=== PATIENT | male | born 1990 | race Caucasian/White ===

== ENCOUNTER → 2025-01-23 07:32 | Outpatient (REF) | payer BC, SELFPAY ==
[2025-01-23 08:42] LABS: % Basophils 0.8 % (0-2); % Eosinophils 3.5 % (0-6); % Immature Granulocytes 0.2 % (0-0.5); % Lymphocytes 17.5 % (20.5-51.1); % Monocytes 7.8 % (1.7-9.3); % Neutrophils 70.2 % (42.2-75.2); Absolute Basophils 0.1 10^3/uL (0-0.2); Absolute Eosinophils 0.3 10^3/uL (0-0.7); Absolute Lymphocytes 1.7 10^3/uL (1.2-3.4); Absolute Monocytes 0.8 10^3/uL (0.1-0.6); Absolute Neutrophils 6.8 10^3/uL (1.4-6.5); Hematocrit 42.3 % (39.0-52.0); Hemoglobin 13.8 g/dL (13.0-18.0); Mean Corp Hgb Conc. 32.6 g/dL (33.0-37.0); Mean Corpuscular Hgb 28.5 pg (27.0-31.0); Mean Corpuscular Volume 87.2 fL (80.0-94.0); Mean Platelet Volume 10.3 fL (7.4-10.4); Nucleated Red Blood Cells % 0 % (-); Platelet Count 331 10^3/uL (130-400); Red Blood Cell Count 4.85 10^6/uL (4.70-6.10); Red Cell Dist. Width 12.8 % (11.5-14.5); White Blood Cell Count 9.7 10^3/uL (4.8-10.8)
[2025-01-23 11:29] LABS: ALT (SGPT) 61 U/L (0-50); AST (SGOT) 43 U/L (17-59); Albumin 4.6 g/dl (3.5-5.0); Alkaline Phosphatase 66 U/L (38-126); Blood Urea Nitrogen 13 mg/dl (9-20); Calcium 9.9 mg/dl (8.4-10.2); Carbon Dioxide 31 mmol/L (22-30); Chloride 102 mmol/L (98-107); Glucose 101 mg/dl (70-99); Potassium 4.8 mmol/L (3.5-5.1); Sodium 141 mmol/L (135-145); Total Bilirubin 0.7 mg/dl (0.2-1.3); Total Protein 8.1 g/dl (6.3-8.2); eGFR > 60.00
== END ==
LOC: HWLAB 07:32
PROVIDERS: ATTENDING PHYSICIAN Surgery; FAMILY PHYSICIAN Internal Medicine
DX: R10.10 Upper abdominal pain, unspecified (principal)
CPT/HCPCS: 36415; 80053; 85025; 86140

== ENCOUNTER 2025-02-06 06:29 | Day surgery (SDC) | payer BC, SELFPAY | END 2025-02-06 11:23 | disposition home or self-care (01) | LOC: GI 06:29 | PROVIDERS: ATTENDING PHYSICIAN Surgery | DX: K62.5 Hemorrhage of anus and rectum (principal); K64.5 Perianal venous thrombosis; D49.0 Neoplasm of unspecified behavior of digestive system; D12.5 Benign neoplasm of sigmoid colon | CPT/HCPCS: 45380; 45381; 88305 ==

== ENCOUNTER 2025-02-21 15:50 | Inpatient (IN) | payer BC, SELFPAY ==
[2025-02-21] VITALS (15 sets, daily range): BP systolic 94–139; BP diastolic 56–80; BMI 21.8
--- NOTE | 2025-02-21 14:48 | HPS.HSE ---
Family Physician
-
Family Physician: Daniel Durbin MD
Chief Complaint
-
Sigmoid mass
History of Present Illness
34-year-old male found to have a fungating, polypoid and ulcerated nonobstructing mass of the sigmoid colon on a colonoscopy performed on 02/06/[address] Sánchez. The procedure was performed for rectal bleeding and a change in bowel habits.
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 He was referred for an EMR and Dr. Sanchez called me following the procedure 10 minutes ago. While taking the lesion out there was
a full-thickness perforation that was closed an overstitch suturing system.
While in the PACU he is awake and alert. He is having some abdominal pain, as expected. He is afebrile and his vital signs are normal. His abdomen is tender throughout. His WBC is normal.
Medical History
Past Medical History
Past Medical History: Reports None
Past Surgical History: Reports None
Social History
Tobacco: Non-smoker
Alcohol: None
Personal:
Living: With Family
Employment: Employed
Family History
Family History: Cancer (2 maternal uncles with colon cancer) and Other (Father with Crohn's disease and a sister with IBD; his mother had polyps)
Allergies / Home Medications
Allergies reflects when Allergies were last updated in [facility].
None
Home Medications with original date entered in [facility]
None
Allergy/Medication List:
NKDA
Review of Systems
-
History Source: Patient
A 12 point ROS was completed and negative except as noted: Yes
Physical Exam
Vital Signs
Vital Signs
Temp Pulse Resp BP Pulse Ox
98.7 F 68 16 129/75 98
02/21/25 11:08 02/21/25 11:08 02/21/25 11:08 02/21/25 11:08 02/21/25 11:08
Physical Exam
General: Well Developed
HEENT: Anicteric
GI: Soft, Non Tender and Non Distended
Skin: Warm
Neuro: Awake and Alert
Impression/Plan
-
IMPRESSION: Colonic perforation during EMR for a neoplastic polyp of the distal sigmoid colon. Currently clinically stable. He is having pain and tenderness as expected.
PLAN: The plan is for admission and observation. Will keep n.p.o. and on antibiotics. If his condition worsens will consider imaging versus surgery. Surgery at this time might require a temporary ostomy. I do not feel imaging at this time will
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 I spoke to the patient and his at length, all questions answered and they are in agreement with the plan.
[2025-02-21 15:52] LABS: Hematocrit 37.4 % (39.0-52.0); Hemoglobin 12.6 g/dL (13.0-18.0); Mean Corp Hgb Conc. 33.7 g/dL (33.0-37.0); Mean Corpuscular Volume 85.0 fL (80.0-94.0); Nucleated Red Blood Cells % 0 % (-); Platelet Count 270 10^3/uL (130-400); Red Cell Dist. Width 12.2 % (11.5-14.5)
[2025-02-21] MEDS: DILAUDID 0.5 MG IV ×2 (15:54→19:59)
[2025-02-21] MEDS: ZOSYN 50 IV ×2 (15:56→21:55)
[2025-02-21 16:01] LABS: Blood Urea Nitrogen 13 mg/dl (9-20); Calcium 9.1 mg/dl (8.4-10.2); Carbon Dioxide 27 mmol/L (22-30); Chloride 99 mmol/L (98-107); Estimated Creatinine Clearance > 125 ml/min; Glucose 84 mg/dl (70-99); Potassium 3.9 mmol/L (3.5-5.1); Sodium 133 mmol/L (135-145); eGFR > 60.00
[2025-02-21 16:06] LABS: INR 1.05; PT 14.2 Sec (11.4-14.6)
[2025-02-21 16:07] LABS: APTT 32.4 Sec (23.4-35.0)
[2025-02-21] MEDS: NSS 1000 IV (17:19)
[2025-02-21] MEDS: TYLENOL 500 MG PO (17:49)
--- NOTE | 2025-02-21 18:09 | PTCARENOTE ---
Received from PACU - IMU moniotrs placed NSR 87 BP 123/65 99% on RAIR , afebrile. Color sallow/pasty. IVF NSS at 100ml/hr infusing. C/o low abdominal pain 12/09 last received Dilaudid in PACU. Pt agreeable to PO Tylenol -administered w/ sip of
water- will monitor. DTv. Teds/ scds intact. at bedside.
[2025-02-22] VITALS (12 sets, daily range): BP systolic 110–139; BP diastolic 70–88
[2025-02-22] MEDS: DILAUDID 0.5 MG IV ×9 (00:12→19:51)
[2025-02-22] MEDS: NSS 1000 IV ×3 (02:25→21:23)
[2025-02-22] MEDS: ZOSYN 50 IV ×4 (04:26→21:12)
[2025-02-22 04:39] LABS: Hematocrit 37.7 % (39.0-52.0); Hemoglobin 12.7 g/dL (13.0-18.0); Mean Corp Hgb Conc. 33.7 g/dL (33.0-37.0); Mean Corpuscular Volume 84.2 fL (80.0-94.0); Nucleated Red Blood Cells % 0 % (-); Platelet Count 260 10^3/uL (130-400); Red Cell Dist. Width 12.3 % (11.5-14.5)
[2025-02-22 05:02] LABS: Blood Urea Nitrogen 12 mg/dl (9-20); Calcium 8.9 mg/dl (8.4-10.2); Carbon Dioxide 24 mmol/L (22-30); Chloride 101 mmol/L (98-107); Estimated Creatinine Clearance > 125 ml/min; Glucose 97 mg/dl (70-99); Potassium 4.1 mmol/L (3.5-5.1); Sodium 134 mmol/L (135-145); eGFR > 60.00
[2025-02-22 06:15] LABS: CEA 1180 ng/ml
--- NOTE | 2025-02-22 07:16 | W.PN.CRS1 ---
Today's Communication / Plan
-
CTA/P
ET nursing consult
Assessment/Plan
-
S/p colonoscopic perforation due to EMR of sigmoid polyp--repaired endoluminally.
1. still with pain, subjectively less but receiving Dilaudid. A bit tachycardic and WBC up to 12.2. CTA/P with IV and water soluble rectal contrast ordered to rule out leak/extravasation. Will have ET nursing erna him for potential stoma if
surgery required. Patient understands.
2. continue npo/IVFs/antibiotics.
Subjective Data
Subjective Data
Date of Service: February 22, 2025
Admits to L sided abdominal pain. Somewhat better than yesterday but getting q 2 hr Dilaudid.
Objective Data
-
Vital Signs
Temp Pulse Resp BP Pulse Ox
98.3 F 107 42 135/77 97
02/22/25 03:20 02/22/25 02:00 02/22/25 02:00 02/22/25 02:00 02/22/25 02:00
Intake & Output
02/21/25 02/22/25 02/23/25
06:59 06:59 06:59
Intake Total 200 / 200
Output Total 400 / 400
Balance -200 / -200
Intake:
IV fluids (Total) 200 / 200
NSS 200 / 200
Output:
Urine, Voided 400 / 400
Lab Results
02/22/25 04:28
02/22/25 04:28
Physical Exam
-
General: No Acute Distress
Chest: Clear
Cardiovascular: Sinus Tachycardia
Abdomen: Non Distended and Tender (moderate L>R)
Extremities: No Calf Tenderness
--- NOTE | 2025-02-22 10:40 | WOUNDNOTE ---
[facility] RN note: Stoma marked patient both sides of abdomen per Dr. Jc's request. Stoma marked patient in lying and seated bed position as patient too uncomfortable to sit on the side of the bed. Stoma marked patient in lower quadrants over the
rectus muscle avoiding any skin crease. LLQ stoma erna 3.5cm distal to the umbilical line and 5.6cm to L of midline. RLQ stoma erna 3.7cm distal to the umbilical line and 4.4cm to R of midline. Patient instructed surgeon makes the final decision
with stoma placement. Patient's present. Skin on patient's sacrum and heels intact. Instructed patient pressure injury prevention measures.
--- NOTE | 2025-02-22 11:34 | W.PN.UPDATE ---
Update Note
Progress Note Update
Patient was seen. I performed colonoscopy yesterday with EMR of large rectosigmoid polyp/mass, which was complicated by perforation. Attempts were made for endoscopic repair with over stitch suture placements. Good defect apposition was felt to
be achieved. Patient was subsequently admitted and colorectal surgery was called. Overnight his pain worsened, became tachycardic early this morning with evolving leukocytosis. He is quite tender in his abdomen. He had a CT of abdomen today
which unfortunately revealed multiple likely metastatic lesions in his liver. I spoke with colorectal surgeon (Dr. Ivey) and the patient is planned for diverting ostomy. Spoke with pathologist who confirmed the suspicion that this is invasive
carcinoma. Will contact oncology.
--- NOTE | 2025-02-22 11:42 | PTCARENOTE ---
Received this am, anxious w pressured speech/ fast non stop talking. Am meds given plus xanax and Roxycodone for pain/ anxiety. Requested her to refrain until Insulin /D50 orders reviewed with provider/ Yared Harrison from pharmacy d/t
elevated blood sugars- times skew ed d/t stat blood glucose draws- pt difficult access- some multi draws have been required. Per Dr. Galvez repeat K after 10am- again difficulty in obtain blood sample. Staff assisting.
Remains anxious wants to constantly eat, asked her to refrain for few hours- will monitor compliancy as she was stating she cant do that.
--- NOTE | 2025-02-22 14:03 | W.PN.UPDATE ---
Addendum entered and electronically signed by Roger Ivey MD 02/22/25 15:23:
Correction: I discussed with Drs. Abreu and Madi, not 'Nury petty'.
Original Note:
Update Note
Progress Note Update
Earlier in the day the patient underwent CT abdomen and pelvis with IV and rectal contrast. I did review images with radiology staff including Drs. Vieira and Kalia petty. There was evidence for small bowel ileus. There was moderate free air. The
rectal contrast decision in the rectosigmoid lumen. There was a question of a small area of extraluminal contrast versus calcified lymph nodes near the rectum. Given that finding I was considering surgical intervention of the point in time. I
soon received word from radiology that they recommended a stat noncontrast pelvic CT to better determine whether a leak is occurring. This pelvic CT was interpreted as intraluminal lymph nodes rather than extraluminal contrast. There is no
convincing evidence for extraluminal contrast. As an incidental finding, there was evidence for hepatic metastatic disease which was pretty significant. The patient was made aware of the hepatic disease earlier by Dr. Sanchez. I spoke to the patient
and his family at the bedside after the pelvic CT results were back. He felt that his pain was somewhat better as well. I told him we were going to hold off on surgical intervention at this juncture but we will continue to follow him closely.
[2025-02-22] MEDS: TORADOL 15 MG IV ×2 (15:22→21:12)
--- NOTE | 2025-02-22 15:47 | CM ---
Met with patient at bedside
[facility] @ [address] [place]
Address updated with Admissions: [address] [place] [address]
Family Physician: Daniel Durbin MD @ [address] [address]; phone [phone]
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
No DME
NO history of SNF or Home Health utilization
or mother will transport home
Discharge plan to be determined pending hospital course; Case Management will monitor and support needs/service once identified
--- NOTE | 2025-02-22 17:59 | PTCARENOTE ---
Addendum entered by Cassidy Lin RN 02/22/25 18:08:
Remains NPO, mouth care completed by pt. IVF infusing / IV antibiotics as ordered.
Original Note:
CT scans completed today, otherwise has not felt up to moving around. Complaining of 6-8/10 abdominal pain hilda uncomfortable moving around- after [address] Ivey- added IV Toradol- given pain improving- still required IV Dilaudid but
he does see improvement. Affect is calm, supportive family at bedside today. 'Take it one day at a time' with a smile on his face. SR/ST on tele pulse rate 80s-100, BP 120/80 and afebrile. Occasionally RR 30s -short interval. SCDs/ Teds intact.
Can make needs known.
--- NOTE | 2025-02-22 19:20 | PTCARENOTE ---
Pain improving since starting IV Toradol but still waxing and waning now 3-5/10 more when moving around in bed. Voiding adequately.
[2025-02-22] MEDS: DILAUDID 0.25 MG IV (22:49)
[2025-02-23] VITALS (12 sets, daily range): BP systolic 110–140; BP diastolic 63–84; BMI 21.8
[2025-02-23] MEDS: DILAUDID 0.5 MG IV ×6 (00:51→20:21)
--- NOTE | 2025-02-23 02:00 | PTCARENOTE ---
Pt is AAOx3. pleasant and using call light appropriately. c/o moderate to severe abdominal pain throughout. pain meds admin per orders, see MAR. IV fluids infusing via left wrist iv site. assessment as documented. npo order maintained. call light in
reach.
[2025-02-23] MEDS: DILAUDID 0.25 MG IV ×2 (02:56→18:05)
[2025-02-23] MEDS: ZOSYN 50 IV ×4 (04:52→21:51)
[2025-02-23] MEDS: TORADOL 15 MG IV ×4 (04:52→21:50)
[2025-02-23 05:16] LABS: Hematocrit 36.1 % (39.0-52.0); Hemoglobin 12.0 g/dL (13.0-18.0); Mean Corp Hgb Conc. 33.2 g/dL (33.0-37.0); Mean Corpuscular Volume 86.2 fL (80.0-94.0); Nucleated Red Blood Cells % 0 % (-); Platelet Count 255 10^3/uL (130-400); Red Cell Dist. Width 12.7 % (11.5-14.5)
[2025-02-23 05:40] LABS: Blood Urea Nitrogen 11 mg/dl (9-20); Calcium 9.0 mg/dl (8.4-10.2); Carbon Dioxide 21 mmol/L (22-30); Chloride 104 mmol/L (98-107); Estimated Creatinine Clearance > 125 ml/min; Glucose 88 mg/dl (70-99); Potassium 3.9 mmol/L (3.5-5.1); Sodium 134 mmol/L (135-145); eGFR > 60.00
[2025-02-23] MEDS: NSS 1000 IV ×2 (08:41→18:07)
--- NOTE | 2025-02-23 08:41 | W.PN.CRS1 ---
Today's Communication / Plan
-
Sips and chips.
Assessment/Plan
-
S/p colonoscopic perforation due to EMR of sigmoid polyp--repaired endoluminally. CTs yesterday without evidence for contrast extravasation/leak. Evidence for liver metastases.
1. a bit less pain and tenderness. A bit tachycardic and WBC 13.8, Afebrile and normotensive.
2. sips and chips ok. Continue IVFs.
3. holding on surgical option for now. This may change depending on progress. He understands this.
4. continue empiric antibiotics.
Subjective Data
Subjective Data
Date of Service: February 23, 2025
Still pain but less.
Objective Data
-
Vital Signs
Temp Pulse Resp BP Pulse Ox
98.2 F 102 27 123/72 98
02/23/25 03:30 02/23/25 06:00 02/23/25 06:00 02/23/25 06:00 02/23/25 06:00
Intake & Output
02/22/25 02/23/25 02/24/25
06:59 06:59 06:59
Intake Total 200 / 200 1300 / 1300
Output Total 400 / 400 2100 / 2100
Balance -200 / -200 -800 / -800
Intake:
IV fluids (Total) 200 / 200 1200 / 1200
NSS 200 / 200
IV piggybacks 100 / 100
Output:
Urine, Voided 400 / 400 2100 / 2100
Other:
Number of approximated SMALL 1
amounts of urine
Number of approximated MODERATE 2
amounts of urine
Lab Results
02/23/25 05:04
02/23/25 05:04
Physical Exam
-
General: No Acute Distress
Chest: Clear
Cardiovascular: Sinus Tachycardia (borderline)
Abdomen: Distended (mild), Tender (LLQ--less than yesterday), No Guarding and No Rebound
Extremities: No Calf Tenderness
--- NOTE | 2025-02-23 23:29 | PTCARENOTE ---
Report received from octavio RN. using call light appropriately, [id number]. teds and scds in use. communicating pain. n/s @ 80 ml/hr infusing via left wrist iv. assessment as documented. call light in reach.
[2025-02-24] VITALS (7 sets, daily range): BP systolic 118–134; BP diastolic 71–80
[2025-02-24] MEDS: DILAUDID 0.5 MG IV (00:39)
[2025-02-24] MEDS: ZOSYN 50 IV ×4 (03:35→22:05)
[2025-02-24] MEDS: TORADOL 15 MG IV ×4 (03:35→22:04)
[2025-02-24] MEDS: NSS 1000 IV ×2 (03:36→20:52)
[2025-02-24 04:11] LABS: Hematocrit 34.1 % (39.0-52.0); Hemoglobin 11.3 g/dL (13.0-18.0); Mean Corp Hgb Conc. 33.1 g/dL (33.0-37.0); Mean Corpuscular Volume 85.5 fL (80.0-94.0); Nucleated Red Blood Cells % 0 % (-); Platelet Count 261 10^3/uL (130-400); Red Cell Dist. Width 12.6 % (11.5-14.5)
[2025-02-24 04:35] LABS: Blood Urea Nitrogen 8 mg/dl (9-20); Calcium 8.1 mg/dl (8.4-10.2); Carbon Dioxide 22 mmol/L (22-30); Chloride 105 mmol/L (98-107); Estimated Creatinine Clearance > 125 ml/min; Glucose 94 mg/dl (70-99); Potassium 3.4 mmol/L (3.5-5.1); Sodium 138 mmol/L (135-145); eGFR > 60.00
[2025-02-24] MEDS: DILAUDID 0.25 MG IV ×5 (04:46→22:05)
--- NOTE | 2025-02-24 12:24 | W.PN.CRS1 ---
Today's Communication / Plan
-
No plans for surgery at this time.
Will begin clear liquids and advance as tolerated.
Medical oncology consultation.
Assessment/Plan
-
S/p colonoscopic perforation due to EMR of sigmoid polyp--repaired endoluminally. CTs 02/22/25 without evidence for contrast extravasation/leak. Evidence for liver metastases.
1. Marked improvement since yesterday and he is now passing flatus. Afebrile and normotensive. His tachycardia has resolved and his white count has normalized.
2. Will begin clear liquid diet and advance as tolerated.
3. No plans on surgery at this time.
4. continue empiric antibiotics.
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 The carcinoma extends through the muscular propria into the pericolic tissue and extends to the cauterized margin of
resection. There is a foci suspicious for lymphovascular invasion and a moderate tumor budding is present. MMR proteins are intact.
I reviewed the current findings with the patient and his mother at the bedside. Hopefully can avoid surgery at this time and ultimately he will need chemotherapy. Will also need a CT scan of the chest. His CEA is 1188 ng/mL. We also discussed
genetic testing which we will be performed as an outpatient. They are planning on seeing a medical oncologist at [facility] but also wish to see an oncologist here. I reviewed the case with Dr. Ramos for his input.
Subjective Data
Subjective Data
Date of Service: February 24, 2025
This morning his pain is much improved. I saw him last night he was having some abdominal pain, mostly in the right upper quadrant which he has had in the past. Since passing some flatus he feels much better and his appetite is returning.
Objective Data
-
Vital Signs
Temp Pulse Resp BP Pulse Ox
98.4 F 83 25 129/74 98
02/24/25 07:05 02/24/25 08:00 02/24/25 08:00 02/24/25 08:00 02/24/25 08:00
Intake & Output
02/23/25 02/24/25 02/25/25
06:59 06:59 06:59
Intake Total 1300 / 1300 1340 / 1340
Output Total 2099 / 2099 800 / 800 350 / 350
Balance -800 / -800 540 / 540 -350 / -350
Intake:
Oral fluids 240 / 240
IV fluids (Total) 1200 / 1200 1000 / 1000
IV piggybacks 100 / 100 100 / 100
Output:
Urine, Voided 2099 / 2099 800 / 800 350 / 350
Other:
Number of approximated SMALL 1
amounts of urine
Number of approximated MODERATE 2
amounts of urine
Lab Results
02/24/25 03:48
02/24/25 03:48
Physical Exam
-
General: No Acute Distress
Abdomen: Soft, Non Distended and Non Tender
Extremities: No Calf Tenderness
[2025-02-24] MEDS: KCL 40 MEQ PO (13:26)
[2025-02-24] MEDS: ZOSYN IV (16:45)
[2025-02-24] MEDS: LOVENOX 40 MG SC (16:46)
--- NOTE | 2025-02-24 18:17 | CON.ONC ---
Consultation
-
Date Consultation Requested: 02/24/25
Date Consultation Performed: 02/24/25
Requesting Provider: Marlon Jc
Performing Provider: Radha Ramos
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
Impression
Impression
Stage IV (pT3,cN2b,cM1a)pMMR inv mucinous adenocarcinoma
Plan
Plan
NCCN guidelines reviewed with the patient and his regarding the staging and therapeutic options for unresectable hepatic disease. Discussed completion of restaging with CT scan of the chest and likely need for PET scan as outpatient. CEA
level elevated 1184 to be used as monitoring during therapy between imaging. They are interested in opinions at multiple tertiary care centers which I encouraged.
Patient History
History of Present Illness
Pleasant 34-year-old white male with no history of chronic medical problems noted bright red blood per rectum in the late fall 2023 for which he was evaluated by his primary care physician having then been referred to GI for recurrence of what was
felt to be related to hemorrhoidal bleeding. In retrospect he and his note a loss of appetite in the ensuing 4 to 5 months with new abdominal pain in the last 2 to 3 weeks noted with sneezing for which he locates precisely to the right
subcostal area of an intermittent nature. There is no family history of colorectal carcinoma though his father carries diagnosis of Crohn's disease and sister IBD. Referred to colorectal surgery for which colonoscopy 02/06/2025 noted a fungating
polypoid ulcerated nonobstructing large mass of the sigmoid colon partially circumferential involving one third of the lumen circumference without active bleeding at the time of the procedure. Pathology was diagnostic for tubulovillous adenomas
with focal areas for high-grade dysplasia. He was referred to interventional gastroenterology for possible scopic mucosal resection of the tumor on 02/21/2025 for which a greater than 50 mm polyp sessile multilobulated with superficial ulcerations
was performed bloc resection though incomplete as a small residual polyp was seen in the resection field. A nonbleeding perforation was found in the rectosigmoid colon immediately following the procedure; sutures were used to repair the tear in
addition to hemostatic clips for which she was subsequently admitted to the hospital for further observation and treatment. The final pathology logic resection was consistent with a moderately differentiated invasive adenocarcinoma with mucinous
features. Immunohistochemistry by MSI testing was proficient. During his hospitalization CT A/P with contrast was performed for which multilobulated lesion of the sigmoid was noted measuring 2.6 cm with extensive bilobar hepatic metastases within
the caudate lobe as well as multiple confluent necrotic lymph nodes of the Seth portal region causing portal vein narrowing without thrombosis. There was encasement of the common hepatic artery as well. There is no evidence of ascites nor pleural
effusions; visualized osseous and paraspinal soft tissues were without masses
Past-Medical/Surgical History
NA
Patient Medication
�Medication �Instructions �Recorded �Confirmed �Last Taken �Type
No Meds [No Current Medications] 02/21/25 02/21/25 Unknown History
Active Medications
Generic Name Dose Route Start Last Admin
Trade Name Freq PRN Reason Stop Dose Admin
Acetaminophen 500 mg 02/21/25 15:22 02/21/25 17:49
Acetaminophen 500 Mg Tablet PO 03/21/25 15:21 500 mg
Q4HPRN PRN Administration
pain, use first
Enoxaparin Sodium 40 mg 02/24/25 18:00 02/24/25 16:46
Enoxaparin Sodium 40 Mg/0.4 Ml Syringe SC 03/24/25 17:59 40 mg
QPM ASTRID Administration
Hydromorphone HCl 0.25 mg 02/21/25 15:52 02/24/25 16:48
Hydromorphone 0.25 Mg/0.5 Ml Syringe IV 03/07/25 15:51 0.25 mg
Q4HPRN PRN Administration
moderate pain
Hydromorphone HCl 0.5 mg 02/22/25 02:17 02/24/25 00:39
Hydromorphone 0.5 Mg/0.5 Ml Syringe IV 03/08/25 02:15 0.5 mg
Q2HPRN PRN Administration
severe pain
Piperacillin Sod/Tazobactam Sod 3.375 gram in 50 mls @ 100 mls/hr 02/21/25 22:00 02/24/25 16:45
Zosyn IV 50 mls
Q6H ASTRID Administration
Ketorolac Tromethamine 15 mg 02/22/25 15:00 02/24/25 16:45
Ketorolac 15 Mg/Ml Injection IV 02/27/25 14:59 15 mg
Q6H ASTRID Administration
Sodium Chloride 0 flush 02/21/25 18:00
Sodium Chloride 0.9% (Flush) Syringe IV 03/21/25 17:59
PER PROTOCOL ASTRID
Review of Systems
-
History Source: Patient and Family
All Other Systems: Reviewed and Negative (other than for improving abdominal tenderness and return ot appetite)
Physical Exam
-
General: Well Developed
HEENT: Moist Mucous Membranes
Cardiology: Normal Sinus Rhythm
Pulmonary: Clear
GI: Soft and Flat
Musculoskeletal: No Clubbing, No Cyanosis and No Edema
Psych: Calm and Intact Judgement/Insight
Labs
Lab Results
WBC 10.4 10^3/uL (4.8-10.8) 02/24/25 03:48
RBC 3.99 10^6/uL (4.70-6.10) L 02/24/25 03:48
Hgb 11.3 g/dL (13.0-18.0) L 02/24/25 03:48
Hct 34.1 % (39.0-52.0) L 02/24/25 03:48
MCV 85.5 fL (80.0-94.0) 02/24/25 03:48
MCH 28.3 pg (27.0-31.0) 02/24/25 03:48
MCHC 33.1 g/dL (33.0-37.0) 02/24/25 03:48
RDW 12.6 % (11.5-14.5) 02/24/25 03:48
Plt Count 261 10^3/uL (130-400) 02/24/25 03:48
MPV 9.9 fL (7.4-10.4) 02/24/25 03:48
Abs Immat Gran (auto) 0.0 10^3/uL (0-0.05) 02/24/25 03:48
Absolute Neuts (auto) 8.5 10^3/uL (1.4-6.5) H 02/24/25 03:48
Absolute Lymphs (auto) 0.9 10^3/uL (1.2-3.4) L 02/24/25 03:48
Absolute Monos (auto) 0.5 10^3/uL (0.1-0.6) 02/24/25 03:48
Absolute Eos (auto) 0.4 10^3/uL (0-0.7) 02/24/25 03:48
Absolute Basos (auto) 0.0 10^3/uL (0-0.2) 02/24/25 03:48
Immature Gran % 0.4 % (0-0.5) 02/24/25 03:48
Neutrophils % 82.2 % (42.2-75.2) H 02/24/25 03:48
Lymphocytes % 8.3 % (20.5-51.1) L 02/24/25 03:48
Monocytes % 5.2 % (1.7-9.3) 02/24/25 03:48
Eosinophils % 3.6 % (0-6) 02/24/25 03:48
Basophils % 0.3 % (0-2) 02/24/25 03:48
Creatinine 0.6 mg/dL (0.7-1.3) L 02/24/25 03:48
Vital Signs
Vital Signs
Temp Pulse Resp BP Pulse Ox
98.0 F 83 25 129/74 98
02/24/25 15:24 02/24/25 08:00 02/24/25 08:00 02/24/25 08:00 02/24/25 08:00
[2025-02-25] MEDS: TORADOL 15 MG IV ×3 (02:36→15:08)
[2025-02-25] MEDS: DILAUDID 0.25 MG IV ×2 (02:36→07:16)
[2025-02-25] MEDS: ZOSYN 50 IV ×2 (05:06→09:04)
[2025-02-25 05:55] LABS: Hematocrit 29.8 % (39.0-52.0); Hemoglobin 10.1 g/dL (13.0-18.0); Mean Corp Hgb Conc. 33.9 g/dL (33.0-37.0); Mean Corpuscular Volume 83.7 fL (80.0-94.0); Platelet Count 264 10^3/uL (130-400); Red Cell Dist. Width 12.6 % (11.5-14.5)
[2025-02-25 06:24] LABS: Blood Urea Nitrogen 6 mg/dl (9-20); Calcium 8.2 mg/dl (8.4-10.2); Carbon Dioxide 27 mmol/L (22-30); Chloride 106 mmol/L (98-107); Estimated Creatinine Clearance > 125 ml/min; Glucose 107 mg/dl (70-99); Potassium 3.5 mmol/L (3.5-5.1); Sodium 138 mmol/L (135-145); eGFR > 60.00
[2025-02-25 07:45] VITALS: BP 134/84
[2025-02-25 09:51] VITALS: BP 132/82
--- NOTE | 2025-02-25 10:02 | W.PN.ONC ---
Today's Communication / Plan
-
Reviewed CT chest-- w/o overt mets-- will likely d/c in next 24 hours-- will offer f/u
Impression
Impression
Stage IV (pT3,cN2b,cM1a)pMMR inv mucinous adenocarcinoma
Plan
Plan
NCCN guidelines reviewed with the patient and his regarding the staging and therapeutic options for unresectable hepatic disease. Discussed completion of restaging with CT scan of the chest and likely need for PET scan as outpatient. CEA
level elevated 1184 to be used as monitoring during therapy between imaging. They are interested in opinions at multiple tertiary care centers which I encouraged.
Subjective/Objective
Subjective/Objective
Vital Signs:
Vital Signs
Temp Pulse Resp BP Pulse Ox
98.5 F 83 18 132/82 98
02/25/25 03:36 02/24/25 23:07 02/24/25 23:07 02/25/25 09:51 02/24/25 09:25
Lab Results:
Laboratory Data
WBC 6.7 10^3/uL (4.8-10.8) 02/25/25 05:35
Hgb 10.1 g/dL (13.0-18.0) L 02/25/25 05:35
Plt Count 264 10^3/uL (130-400) 02/25/25 05:35
PT 14.2 Sec (11.4-14.6) 02/21/25 15:40
INR 1.05 02/21/25 15:40
APTT 32.4 Sec (23.4-35.0) 02/21/25 15:40
eGFR > 60.00 02/25/25 05:35
Orders
Orders
Orders From Last 24 Hours
02/25/25 08:00
CT Chest With Iv Contrast Urgent
--- NOTE | 2025-02-25 11:10 | W.PN.CRS1 ---
Today's Communication / Plan
-
No plans for surgery at this time.
Advance diet to regular.
Follow-up CT.
Appreciate Dr. Ramos's input.
Possible discharge later.
Patient's updated.
Assessment/Plan
-
S/p colonoscopic perforation due to EMR of sigmoid polyp--repaired endoluminally. CTs 02/22/25 without evidence for contrast extravasation/leak. Evidence for liver metastases.
1. Marked improvement since yesterday and he is now passing flatus. Afebrile and normotensive. His tachycardia has resolved and his white count has normalized.
2. Will begin clear liquid diet and advance as tolerated.
3. No plans on surgery at this time.
4. continue empiric antibiotics.
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 The carcinoma extends through the muscular propria into the pericolic tissue and extends to the cauterized margin of
resection. There is a foci suspicious for lymphovascular invasion and a moderate tumor budding is present. MMR proteins are intact.
I reviewed the current findings with the patient and his mother at the bedside. Hopefully can avoid surgery at this time and ultimately he will need chemotherapy. Will also need a CT scan of the chest (ordered for today) His CEA is 1188 ng/mL.
We also discussed genetic testing which we will be performed as an outpatient. They are planning on seeing a medical oncologist at [facility] but also wish to see an oncologist here. I reviewed the case with Dr. Ramos for his input.
Subjective Data
Subjective Data
Date of Service: February 25, 2025
No complaints. Minimal discomfort and passing lots of flatus. Tolerating clears and he is hungry.
Objective Data
-
Vital Signs
Temp Pulse Resp BP Pulse Ox
98.5 F 83 18 132/82 98
02/25/25 03:36 02/24/25 23:07 02/24/25 23:07 02/25/25 09:51 02/24/25 09:25
Intake & Output
02/24/25 02/25/25 02/26/25
06:59 06:59 06:59
Intake Total 1340 / 1340 3140 / 3140
Output Total 800 / 800 350 / 350
Balance 540 / 540 2790 / 2790
Intake:
Oral fluids 240 / 240 1240 / 1240
IV fluids (Total) 1000 / 1000 1700 / 1700
IV piggybacks 100 / 100 200 / 200
Output:
Urine, Voided 800 / 800 350 / 350
Other:
Number of approximated MODERATE 3
amounts of urine
Lab Results
02/25/25 05:35
02/25/25 05:35
Physical Exam
-
General: No Acute Distress
Abdomen: Soft, Non Distended and Non Tender
Extremities: No Calf Tenderness
--- NOTE | 2025-02-25 13:18 | W.PN.UPDATE ---
Update Note
Progress Note Update
There is no evidence of metastatic disease on the chest CT but there is some free air in the upper abdomen. I reviewed this with the patient's and explained it could still be residual from the EMR. Will continue to observe and reassess for
possible discharge later.
--- NOTE | 2025-02-25 14:38 | W.DS.TRANS ---
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
-
Discharge Instructions:
Sleep Apnea Risk Low
Discharge Diagnosis/Procedures Colonoscopic bowel perforation s/p endoluminal
repair
Diet As tolerated
Activity No strenuous activity
Bathing Restrictions None
Instructions:
Stand-Alone Forms:
Changes to Home Medications: No
Discharge Medications:
DC Medications w/original date entered in [facility]
amoxicillin 875 mg-potassium clavulanate 125 mg tablet 1 tab PO BID #14 tabs 02/25/25
tramadol 50 mg tablet 50 mg PO Q8H PRN Pain #30 tabs 02/25/25
Home Medication Changes
Pending Results: No
Total time spent discharging patient (in min): 33
[2025-02-25 15:50] VITALS: BP 110/80
--- NOTE | 2025-02-25 16:26 | CM ---
CM reviewed chart and noted dc order
No dc needs noted
== END 2025-02-25 15:42 | disposition home or self-care (01) | DRG 919 ==
LOC: IMU 15:50
PROVIDERS: Internal Medicine Gastroenterology; ADMITTING PHYSICIAN Surgery; ATTENDING PHYSICIAN Surgery; CONSULT PHYSICIAN Internal Medicine Hematology & Oncology; FAMILY PHYSICIAN Internal Medicine
PROC: 0DBN8ZZ Excision of Sigmoid Colon, Via Natural or Artificial Opening Endoscopic (ICD-10-PCS; 2025-02-21)
DX: K91.71 Accidental puncture and laceration of a digestive system organ or structure during a digestive system procedure (principal); K63.1 Perforation of intestine (nontraumatic); C18.7 Malignant neoplasm of sigmoid colon; K56.7 Ileus, unspecified; C78.7 Secondary malignant neoplasm of liver and intrahepatic bile duct; K64.0 First degree hemorrhoids; Y83.8 Other surgical procedures as the cause of abnormal reaction of the patient, or of later complication, without mention of misadventure at the time of the procedure; Y73.3 Surgical instruments, materials and gastroenterology and urology devices (including sutures) associated with adverse incidents; Z80.0 Family history of malignant neoplasm of digestive organs; Z83.719 Family history of colon polyps, unspecified; Z83.79 Family history of other diseases of the digestive system
CPT/HCPCS: 71260; 72192; 74177; 80048; 82378; 85025; 85027; 85610; 85730; 86850; 86900; 86901; 88305; 88341; 88342; Q9967

== ENCOUNTER 2025-03-21 06:10 | Day surgery (SDC) | payer BC, SELFPAY ==
[2025-03-21 07:45] VITALS: BMI 21.7
[2025-03-21 07:46] VITALS: BMI 21.7
[2025-03-21 07:48] VITALS: BP 128/80
[2025-03-21] MEDS: CELEBREX 200 MG PO (07:51)
[2025-03-21] MEDS: TYLENOL 1000 MG PO (07:51)
[2025-03-21] MEDS: NORMOSOL-R/PLASMALYTE-A 1000 IV (07:59)
--- NOTE | 2025-03-21 10:02 | W.IMMPOSTOP ---
Addendum entered and electronically signed by Chuck Sánchez MD 03/21/25 13:48:
updated patient in recovery room
Original Note:
Surgical Immed Post Op Note
-
Primary Surgeon: Chuck Sánchez MD
Assisting Surgeon: Cem Waller MD
Pre-op Diagnosis: Stage IV colon cancer
Post-op Diagnosis: Stage IV colon cancer
Procedure Performed: Ultrasound-guided left subclavian Mediport insertion
Anesthesia Type: Sedation with local
Specimen / Cultures: None
Estimated Blood Loss: 10 mL
Complications: None
Operative Findings: After third attempt using ultrasound guidance, obtained access to the left subclavian vein; advanced catheter to the cavoatrial junction under fluoroscopy; after port secured to the chest wall, easily flushed and aspirated and
tip confirmed at the cavoatrial junction
[2025-03-21 10:03] VITALS: BP 128/80; BP 129/80
--- NOTE | 2025-03-21 10:04 | OR.RPT ---
Operative Report
Operative Report
DATE OF OPERATION: 03/21/2025
SURGEON: Chuck Sánchez MD
PREOPERATIVE DIAGNOSIS: Stage 4 colon cancer
POSTOPERATIVE DIAGNOSIS: Stage 4 colon cancer
OPERATION: Ultrasound-guided left subclavian Mediport insertion
ASSISTANTS:
1. Cem Waller MD
ANESTHESIA: Sedation with local
ESTIMATED BLOOD LOSS: 10 mL
FINDINGS:
1. After placement, the tip of port catheter visualized at level of the cavoatrial junction on fluoroscopy
2. Once sutured in position, port tested with Moreno needle and there was good withdrawal of blood and instillation of heparinized saline without resistance
SPECIMENS: None
DRAINS: None
COMPLICATIONS: No immediate complications.
INDICATIONS: The patient is a 34-year-old male with stage 4 colon cancer. Infusional chemotherapy was recommended. Therefore, I recommended port placement. The operation was discussed with the patient in detail including risks and benefits. Risks
discussed included, but are not limited to, bleeding, infection, pneumothorax, post-operative malposition or movement of catheter, need for second surgery, DVT/PE, and anesthetic risks. The patient understood and agreed to proceed. The consent was
signed and placed in the chart.
PROCEDURE: Patient was taken to the operating room and placed on the operating table in supine position. Sequential compression devices were placed bilaterally. Sedation was commenced without complication. Bilateral arms were tucked and the head
was tilted toward the right. The left neck and chest wall area were shaved, prepped and draped in a sterile fashion. A time-out was then performed verifying the correct patient, procedure, operative site, positioning, and special equipment.
The patient was placed in Trendelenburg position. 10mL of local anesthetic consisting of 1% lidocaine with epinephrine was used to numb the skin and soft tissue near the angle of the left clavicle. Using bony landmarks as a guide, I passed the
needle with 10mL syringe under the left clavicle in the direction of the sternal notch while simultaneously aspirating. On the first pass, no venous return was encountered. Using the ultrasound probe, on the second pass, I was able to access the
vein with good venous return. However, upon passing the guidewire, the guidewire kinked at the tip of the needle and did not pass easily. I removed the needle. I held pressure for a few minutes. I checked to the anatomy with the ultrasound and
there was no hematoma or pneumothorax seen. Therefore, I attempted a third pass under ultrasound guidance. There was good venous return noted. Under fluoroscopic guidance, a guidewire was passed through the needle into the patient down to the
superior vena cava. This went smoothly.
The needle was removed over the guidewire and a skin opening was enlarged with an 11 blade scalpel. Next, I advanced the dilator and peel-away sheath together over the guidewire into the patient. This went smoothly as well. Next, the guidewire and
inner dilator were removed leaving the outer sheath in place. I advanced the white tubing through the outer sheath into the patient under fluoroscopic guidance to the superior vena cava near the right atrium. Next, the outer sheath was peeled away
while maintaining the white tubing in place. The location of the catheter tip was confirmed on fluoroscopy.
I injected more 1% lidocaine with epinephrine into the planned subcutaneous port pocket. Using a 15 blade scalpel, I made a 3cm incision over the chest wall. A subcutaneous pocket was created inferiorly to the incision with a combination of Bovie
electrocautery and blunt dissection. There was good hemostasis. The white tubing was connected to the tunneling device and brought through a newly created tunnel to the pocket area, taking care to avoid kinking of the tube. I confirmed with
fluoroscopy that the tip was still at the cavoatrial junction after this manipulation. The white tubing was trimmed, connected to the the port reservoir and secured with the locking mechanism. The port reservoir was accessed with good venous return
and flushed with heparinized saline. One last round of fluoroscopy was performed. The tip of the white tubing was at the level of the cavoatrial junction and there was no kink in the tubing.
The reservoir was secured to the chest wall with two 3-0 Prolene stitches. The port was accessed once more with the Moreno needle and heparinized saline. The port withdrew promptly and flushed easily. The subcutaneous layer was closed with deep
dermal interrupted 3-0 Vicryl and the skin was closed with a running subcuticular 4-0 Vicryl. The remaining 1% lidocaine was injected around the subcutaneous pocket, port incision and stab incision. Total amount of local used was 20mL. Dermabond
was used to dress the port incision and stab incision.
At this point, the procedure was complete. All sponge, needle and instrument counts were correct. The patient tolerated the procedure well and was transferred to the recovery room in stable condition. A portable chest x-ray was ordered in recovery
to confirm port position and rule-out pneumothorax.
Of note, Cem Waller MD, visitor service assistant, was necessary during this procedure for traction, countertraction, and exploratory purposes. I was present for the entire duration of the case.
DICTATED BY: Chuck Sánchez MD
[2025-03-21 10:15] VITALS: BP 132/66
[2025-03-21 10:25] VITALS: BP 139/85
[2025-03-21 10:55] VITALS: BP 137/75
== END 2025-03-21 11:10 | disposition home or self-care (01) ==
LOC: SDS 06:10
PROVIDERS: ATTENDING PHYSICIAN Surgery
DX: C18.9 Malignant neoplasm of colon, unspecified (principal); Z45.2 Encounter for adjustment and management of vascular access device
CPT/HCPCS: 36561; 71045; 76000; C1788

== ENCOUNTER → 2025-04-16 08:48 | Outpatient (REF) | payer BC, SELFPAY ==
[2025-04-16 10:10] LABS: ALT (SGPT) 67 U/L (0-50); AST (SGOT) 37 U/L (17-59); Albumin 3.9 g/dl (3.5-5.0); Alkaline Phosphatase 122 U/L (38-126); Blood Urea Nitrogen 14 mg/dl (9-20); Calcium 9.3 mg/dl (8.4-10.2); Carbon Dioxide 33 mmol/L (22-30); Chloride 101 mmol/L (98-107); Glucose 108 mg/dl (70-99); Magnesium 2.1 mg/dl (1.6-2.3); Potassium 4.1 mmol/L (3.5-5.1); Sodium 142 mmol/L (135-145); Total Protein 7.2 g/dl (6.3-8.2); eGFR > 60.00
[2025-04-16 10:31] LABS: Hematocrit 32.5 % (39.0-52.0); Hemoglobin 10.8 g/dL (13.0-18.0); Mean Corp Hgb Conc. 33.2 g/dL (33.0-37.0); Mean Corpuscular Volume 82.7 fL (80.0-94.0); Platelet Count 253 10^3/uL (130-400); Red Cell Dist. Width 12.7 % (11.5-14.5)
[2025-04-16 11:44] LABS: Absolute Neutrophils -Man Diff 8.6 10^3/uL (1.4-6.5)
[2025-04-16 11:45] LABS: Platelets Checked Yes; Total Cells Counted 100
[2025-04-16 11:46] LABS: Anisocytosis 1+; Hypochromasia 1+; Normal RBC Morphology No
== END ==
LOC: REG 08:48
PROVIDERS: ATTENDING PHYSICIAN Internal Medicine Hematology & Oncology; FAMILY PHYSICIAN Internal Medicine
DX: C18.7 Malignant neoplasm of sigmoid colon (principal)
CPT/HCPCS: 36415; 80053; 83735; 85025

== ENCOUNTER 2025-04-29 09:45 | Emergency (ER) | payer BC, SELFPAY ==
[2025-04-29 09:46] VITALS: BP 118/80
[2025-04-29 10:03] VITALS: BP 118/68
--- NOTE | 2025-04-29 10:11 | ED.GENMED ---
History of Present Illness
<Janet Singleton PA-C - Last Filed: 04/29/25 17:14>
General
Chief Complaint: Fever
Source: patient
Exam Limitations: none
Time Seen by Provider: 04/29/25 09:55
History of Present Illness
History of Present Illness:
34yoM with a history of colon cancer on chemotherapy presenting for evaluation of a fever. Symptoms began 2 days ago. Tmax was 102. He was seen by [facility] yesterday at a walk-in clinic. He had testing done and chest x-ray was normal and
respiratory panel was negative. He also had blood work done which showed a white count of 0.8 with an ANC of 0. He was started on Levaquin 750 mg and he has taken 1 dose so far. Blood cultures were sent and are pending. Again had a fever this
morning of 101. He did not take any antipyretics prior to arrival and temperature is 98.5 in triage. He is otherwise asymptomatic and denies a cough, URI symptoms, vomiting, diarrhea, abdominal pain, rash, dysuria. Last chemotherapy was 5 days
ago. He receives chemotherapy treatments every 2 weeks.
Phy Exam
<Janet Singleton PA-C - Last Filed: 04/29/25 17:14>
General Physical Exam
General Presentation: well appearing and no apparent distress
General Skin: warm and dry
General Habitus: normal
General Mental: alert
ENT Exam
ENT Exam: TM's normal, pharynx normal, neck supple and normocephalic
Additional ENT: No meningismus
Cardiovascular Exam
Cardiovascular Exam: regular rate/rhythm
Pulmonary Exam
Pulmonary Exam: lungs clear, no respiratory distress, no rales, no crackles, no rhonchi and no wheezing
Gastrointestinal Exam
Gastrointestinal Exam: non tender, soft and non distended
Neurological Exam
Neurological Exam: alert
[place] Coma Scale
Eye Opening: Spontaneous
Verbal Response: Oriented
Motor Response: Obeys Commands
GCS Total Score: 15
Skin Exam
Skin Exam: normal color, warm/dry and other (L upper chest port without overlying erythema)
Psychiatric Exam
Psychiatric Exam: normal mood/affect
Course
<Janet Singleton PA-C - Last Filed: 04/29/25 17:14>
Orders/Labs/Results
Orders:
Orders
04/29/25 10:14
COVID-19 Antigen Urgent
Source: Nasal Swab
Complete Blood Count/With Diff Urgent
Comprehensive Metabolic Panel Urgent
Lactate Level [Lactic Acid] Urgent
Blood Culture Q30M
EMEKA Source: Blood/Venous
Specimen Description:
Blood Culture Q30M
EMEKA Source: Blood/Venous
Specimen Description:
Influenza A+B Rapid Molecular Urgent
EMEKA Source: Nasal Swab
Specimen Description:
04/29/25 11:20
Urinalysis Reflex To Culture Urgent
Date Specimen was Collected: 04/29/25
Time Specimen was Collected: 11:09
Urine Microscopic Reflex Cult Urgent
04/29/25 11:30
0.9% Sodium Chloride 1000 ml [Nss] 1,000 ml IV BOLUS
Abnormal Lab Results
04/29/25 04/29/25
10:14 11:20
WBC 0.9 L* 10^3/uL
(4.8-10.8)
RBC 3.33 L 10^6/uL
(4.70-6.10)
Hgb 8.8 L g/dL
(13.0-18.0)
Hct 26.0 L %
(39.0-52.0)
MCV 78.1 L fL
(80.0-94.0)
MCH 26.4 L pg
(27.0-31.0)
Plt Count 67 L 10^3/uL
(130-400)
Absolute Neuts (auto) 0.0 L* 10^3/uL
(1.4-6.5)
Absolute Lymphs (auto) 0.8 L 10^3/uL
(1.2-3.4)
Neutrophils % 2.4 L %
(42.2-75.2)
Lymphocytes % 86.2 H %
(20.5-51.1)
Monocytes % 10.3 H %
(1.7-9.3)
Sodium 129 L mmol/L
(135-145)
Creatinine 0.6 L mg/dL
(0.7-1.3)
Glucose 150 H mg/dl
(70-99)
Ur Occult Blood Reflex 1+ A
(Negative)
Urine RBC 3-6 A /HPF
(0-2)
Urine Albumin (Reflex) 2+ A
(Neg - Trace)
04/29/25 10:14
04/29/25 10:14
Vital Signs
Initial and Last Documented VS:
Initial Vital Signs
Temp Pulse Resp BP Pulse Ox
98.5 F 109 18 118/80 98
04/29/25 09:46 04/29/25 09:46 04/29/25 09:46 04/29/25 09:46 04/29/25 09:46
Last Documented Vital Signs
Temp Pulse Resp BP Pulse Ox
98.5 F 88 27 124/73 100
04/29/25 09:46 04/29/25 12:45 04/29/25 12:45 04/29/25 11:00 04/29/25 12:45
Alejolt;Chuck Hernandez, - Last Filed: 04/29/25 11:14>
Orders/Labs/Results
Orders:
Orders
04/29/25 10:14
COVID-19 Antigen Urgent
Source: Nasal Swab
Complete Blood Count/With Diff Urgent
Comprehensive Metabolic Panel Urgent
Lactate Level [Lactic Acid] Urgent
Blood Culture Q30M
EMEKA Source: Blood/Venous
Specimen Description:
Blood Culture Q30M
EMEKA Source: Blood/Venous
Specimen Description:
Influenza A+B Rapid Molecular Urgent
EMEKA Source: Nasal Swab
Specimen Description:
04/29/25 11:20
Urinalysis Reflex To Culture Urgent
Date Specimen was Collected: 04/29/25
Time Specimen was Collected: 11:09
Urine Microscopic Reflex Cult Urgent
04/29/25 11:30
0.9% Sodium Chloride 1000 ml [Nss] 1,000 ml IV BOLUS
Abnormal Lab Results
04/29/25 04/29/25
10:14 11:20
WBC 0.9 L* 10^3/uL
(4.8-10.8)
RBC 3.33 L 10^6/uL
(4.70-6.10)
Hgb 8.8 L g/dL
(13.0-18.0)
Hct 26.0 L %
(39.0-52.0)
MCV 78.1 L fL
(80.0-94.0)
MCH 26.4 L pg
(27.0-31.0)
Plt Count 67 L 10^3/uL
(130-400)
Absolute Neuts (auto) 0.0 L* 10^3/uL
(1.4-6.5)
Absolute Lymphs (auto) 0.8 L 10^3/uL
(1.2-3.4)
Neutrophils % 2.4 L %
(42.2-75.2)
Lymphocytes % 86.2 H %
(20.5-51.1)
Monocytes % 10.3 H %
(1.7-9.3)
Sodium 129 L mmol/L
(135-145)
Creatinine 0.6 L mg/dL
(0.7-1.3)
Glucose 150 H mg/dl
(70-99)
Ur Occult Blood Reflex 1+ A
(Negative)
Urine RBC 3-6 A /HPF
(0-2)
Urine Albumin (Reflex) 2+ A
(Neg - Trace)
04/29/25 10:14
04/29/25 10:14
Vital Signs
Initial and Last Documented VS:
Initial Vital Signs
Temp Pulse Resp BP Pulse Ox
98.5 F 109 18 118/80 98
04/29/25 09:46 04/29/25 09:46 04/29/25 09:46 04/29/25 09:46 04/29/25 09:46
Last Documented Vital Signs
Temp Pulse Resp BP Pulse Ox
98.5 F 88 27 124/73 100
04/29/25 09:46 04/29/25 12:45 04/29/25 12:45 04/29/25 11:00 04/29/25 12:45
<Janet Singleton PA-C - Last Filed: 04/29/25 17:14>
MDM/Problems Addressed
Differential Diagnosis Includes:
34yoM here with a fever x 2 days. Hx of colon cancer on chemo. Seen at [facility] walk in clinic yesterday and started on Levaquin. Here with recurrent fever this morning. Temp 101 at home although temp is 98.5 on arrival and he did not take any
antipyretics. HR 109. BP stable. Patient is non-toxic appearing. No focal signs of infection noted on exam. Differential diagnosis includes: viral illness, UTI, bacteremia, doubt pneumonia as CXR was normal yesterday and lungs are clear
Initial ED plan: Check septic workup including lactate, blood cultures, UA, and COVID/flu swab.
<Janet Singleton PA-C - Last Filed: 04/29/25 17:14>
*Pulse Oximetry
SaO2: 98
Oxygen Mode of Delivery: Room air
Patient hypoxic: no
*Critical Care Note
Total Time (30-74mins, 75-104mins- exclusive of procedures): Not Applicable
<Janet Singleton PA-C - Last Filed: 04/29/25 17:14>
Update Note
Update Note:
Labs reveal a pancytopenia. White count is 0.9 and ANC 0. Lactate normal. Sodium is 129. He does not appear volume overloaded on exam and 1L NS bolus ordered. No source of infection identified. Discussed case with Dr. Perkins, on-call
oncologist. No need for admission if blood cultures are pending, patient is already on Levaquin, and appears well. Patient in agreement with plan. Blood cultures today are pending as well as blood cultures that were obtained outpatient yesterday.
He is scheduled to have repeat blood work done on Wednesday. He was instructed to f/u closely with his oncologist and return to the ER with any worsening symptoms. Patient discharged in stable condition.
ED Attending Note
<Janet Singleton PA-C - Last Filed: 04/29/25 17:14>
-
Portions of this chart may have been created with voice recognition software.� Occasional wrong word or��sound alike� substitutions may have occurred due to the inherent limitations of voice recognition software.
<Chuck Hernandez, - Last Filed: 04/29/25 11:14>
ED Attending Note
Patient seen and examined by attending physician: Yes
I performed the substantive portion of visit, reviewed & personally made and approve the management plan that is documented in note by myself or KYLE.: Yes
ED Attending Note:
I agree with Oralia's note
Patient presents with fever at home. He had a fever yesterday and again this morning. He was seen at [facility] urgent care where he had labs and other testing which showed that he was neutropenic but did not show any source of infection. He
was started on Levaquin 750 mg once a day. Because his fever recurred he return for evaluation.
General: Awake, Alert, Oriented X3. No acute distress. Very thin
Vitals: unremarkable
Head: Atraumatic
Eyes: Pupils equal, EOMI
Neck: Trachea midline
Abd: Soft, Nontender, No pulsatile mass
Neuro: Nonfocal
Skin: Warm, dry, no rash
Extremities: pulses equal b/l, no edema
ANC here is 0. Patient does not have any symptoms to suggest focal infection. He is afebrile here feels well actually. Will discuss plan with oncology.
Discharge Plan
Departure
Patient Disposition: Home (Routine Discharge)
Date of Disposition: 04/29/25
Time of Disposition: 12:00
Patient with high blood pressure during this ER visit?: No
Discharge Problem:
Fever
Instructions: Fever, Adult (DC)
Prescriptions:
No Action
tramadol 50 mg tablet
50 mg PO Q8H PRN (Reason: Pain) Qty: 30 0RF
naproxen 500 mg tablet
500 mg PO BID Qty: 10 0RF
Referrals:
Daniel Farmer MD [Family Provider, Internal Medicine]
Activity Restrictions/Additional Instructions:
Continue taking Levaquin.
We will call you if your blood cultures are positive.
Please follow-up with your oncologist on Wednesday. Return to the ER with any new or worsening symptoms.
Interventions
Interventions:
*Risk Screen - Suicide Last Done: 04/29/25 09:46
*General Assessment Last Done: 04/29/25 09:46
*Neglect/Abuse Screening Last Done: 04/29/25 09:46
*ED- Fall Risk Assessment Last Done: 04/29/25 11:50
*ED COVID-19 Vaccine History Last Done: 04/29/25 10:28
*Nursing Disposition Last Done: 04/29/25 13:04
ED- Neurological Assessment Last Done: 04/29/25 10:28
ED-Skin Assessment Last Done: 04/29/25 10:28
Discharge Date and Time
Discharge Date/Time: 04/29/25 13:14
Print Language: LIBYAN
[2025-04-29 10:58] LABS: Hematocrit 26.0 % (39.0-52.0); Hemoglobin 8.8 g/dL (13.0-18.0); Mean Corp Hgb Conc. 33.8 g/dL (33.0-37.0); Mean Corpuscular Volume 78.1 fL (80.0-94.0); Platelet Count 67 10^3/uL (130-400); Red Cell Dist. Width 12.7 % (11.5-14.5)
[2025-04-29 11:00] VITALS: BP 124/73
[2025-04-29 11:02] LABS: COVID-19 Antigen Negative (Negative)
[2025-04-29 11:07] LABS: Nucleated Red Blood Cells % 0 % (-)
[2025-04-29 11:28] LABS: ALT (SGPT) 31 U/L (0-50); AST (SGOT) 24 U/L (17-59); Albumin 3.8 g/dl (3.5-5.0); Alkaline Phosphatase 107 U/L (38-126); Blood Urea Nitrogen 11 mg/dl (9-20); Calcium 8.8 mg/dl (8.4-10.2); Carbon Dioxide 22 mmol/L (22-30); Chloride 99 mmol/L (98-107); Glucose 150 mg/dl (70-99); Potassium 3.8 mmol/L (3.5-5.1); Sodium 129 mmol/L (135-145); Total Protein 7.0 g/dl (6.3-8.2); eGFR > 60.00
[2025-04-29] MEDS: NSS 1000 IV (11:44)
[2025-04-29 11:46] LABS: Urine Character Clear (Clear)
[2025-04-29 12:02] LABS: Urine Squamous Cell 0-2 /LPF (Few); Urine White Cell 0-2 /HPF (0-5)
== END 2025-04-29 13:14 | disposition home or self-care (01) ==
LOC: EMR 09:45
PROVIDERS: Physician Assistant; EMERGENCY PHYSICIAN Emergency Medicine; FAMILY PHYSICIAN Internal Medicine
DX: R50.9 Fever, unspecified (principal); D61.818 Other pancytopenia; C18.9 Malignant neoplasm of colon, unspecified
CPT/HCPCS: 99284; 96360; 80053; 81003; 81015; 83605; 85025; 87040; 87502; 87811

== ENCOUNTER → 2025-05-03 10:40 | Outpatient (REF) | payer BC, SELFPAY ==
[2025-05-03 11:34] LABS: Hematocrit 26.8 % (39.0-52.0); Hemoglobin 8.5 g/dL (13.0-18.0); Mean Corp Hgb Conc. 31.7 g/dL (33.0-37.0); Mean Corpuscular Volume 81.2 fL (80.0-94.0); Platelet Count 188 10^3/uL (130-400); Red Cell Dist. Width 14.2 % (11.5-14.5)
[2025-05-03 12:32] LABS: Absolute Neutrophils -Man Diff 3.7 10^3/uL (1.4-6.5); Normal RBC Morphology Yes; Platelets Checked Yes; Total Cells Counted 100
[2025-05-03 13:33] LABS: ALT (SGPT) 36 U/L (0-50); AST (SGOT) 28 U/L (17-59); Albumin 3.7 g/dl (3.5-5.0); Alkaline Phosphatase 118 U/L (38-126); Blood Urea Nitrogen 13 mg/dl (9-20); Calcium 8.9 mg/dl (8.4-10.2); Carbon Dioxide 30 mmol/L (22-30); Chloride 101 mmol/L (98-107); Glucose 103 mg/dl (70-99); Magnesium 2.0 mg/dl (1.6-2.3); Potassium 4.0 mmol/L (3.5-5.1); Sodium 138 mmol/L (135-145); Total Protein 6.8 g/dl (6.3-8.2); eGFR > 60.00
== END ==
LOC: REG 10:40
PROVIDERS: ATTENDING PHYSICIAN Internal Medicine Hematology & Oncology
DX: C18.7 Malignant neoplasm of sigmoid colon (principal)
CPT/HCPCS: 36415; 80053; 83735; 85025

== ENCOUNTER → 2025-05-08 09:46 | Outpatient (REF) | payer BC, SELFPAY ==
[2025-05-08 11:05] LABS: Hematocrit 30.8 % (39.0-52.0); Hemoglobin 9.9 g/dL (13.0-18.0); Mean Corp Hgb Conc. 32.1 g/dL (33.0-37.0); Mean Corpuscular Volume 86.8 fL (80.0-94.0); Nucleated Red Blood Cells % 0 % (-); Platelet Count 553 10^3/uL (130-400); Red Cell Dist. Width 17.8 % (11.5-14.5)
[2025-05-08 11:46] LABS: ALT (SGPT) 39 U/L (0-50); AST (SGOT) 35 U/L (17-59); Albumin 4.0 g/dl (3.5-5.0); Alkaline Phosphatase 107 U/L (38-126); Blood Urea Nitrogen 19 mg/dl (9-20); Calcium 9.2 mg/dl (8.4-10.2); Carbon Dioxide 31 mmol/L (22-30); Chloride 100 mmol/L (98-107); Glucose 97 mg/dl (70-99); Magnesium 2.3 mg/dl (1.6-2.3); Potassium 5.1 mmol/L (3.5-5.1); Sodium 138 mmol/L (135-145); Total Protein 7.5 g/dl (6.3-8.2); eGFR > 60.00
== END ==
LOC: REG 09:46
PROVIDERS: ATTENDING PHYSICIAN Internal Medicine Hematology & Oncology
DX: C18.7 Malignant neoplasm of sigmoid colon (principal)
CPT/HCPCS: 36415; 80053; 83735; 85025

== ENCOUNTER → 2025-05-09 11:52 | Outpatient (REF) | payer BC, SELFPAY | LOC: OIDL 11:52 | PROVIDERS: ATTENDING PHYSICIAN Internal Medicine Hematology & Oncology | DX: C18.7 Malignant neoplasm of sigmoid colon (principal); C78.7 Secondary malignant neoplasm of liver and intrahepatic bile duct | CPT/HCPCS: 82570; 84156 ==

== ENCOUNTER → 2025-05-17 14:06 | Outpatient (REF) | payer BC, SELFPAY ==
[2025-05-17 15:59] LABS: Hematocrit 27.2 % (39.0-52.0); Hemoglobin 8.5 g/dL (13.0-18.0); Mean Corp Hgb Conc. 31.3 g/dL (33.0-37.0); Mean Corpuscular Volume 86.1 fL (80.0-94.0); Platelet Count 334 10^3/uL (130-400); Red Cell Dist. Width 18.4 % (11.5-14.5)
[2025-05-17 16:16] LABS: ALT (SGPT) 24 U/L (0-50); AST (SGOT) 22 U/L (17-59); Albumin 3.8 g/dl (3.5-5.0); Alkaline Phosphatase 122 U/L (38-126); Blood Urea Nitrogen 18 mg/dl (9-20); Calcium 8.7 mg/dl (8.4-10.2); Carbon Dioxide 28 mmol/L (22-30); Chloride 100 mmol/L (98-107); Glucose 98 mg/dl (70-99); Magnesium 2.0 mg/dl (1.6-2.3); Potassium 4.4 mmol/L (3.5-5.1); Sodium 135 mmol/L (135-145); Total Protein 6.9 g/dl (6.3-8.2); eGFR > 60.00
[2025-05-17 17:19] LABS: Nucleated Red Blood Cells % 0 % (-)
== END ==
LOC: REG 14:06
PROVIDERS: ATTENDING PHYSICIAN Internal Medicine Hematology & Oncology
DX: C18.7 Malignant neoplasm of sigmoid colon (principal)
CPT/HCPCS: 36415; 80053; 83735; 85025

== ENCOUNTER → 2025-05-21 07:51 | Outpatient (REF) | payer BC, SELFPAY ==
[2025-05-21 08:12] LABS: Glucose 121 mg/dl (70-99)
== END ==
LOC: PET 07:51
PROVIDERS: ATTENDING PHYSICIAN Internal Medicine Hematology & Oncology
DX: C18.7 Malignant neoplasm of sigmoid colon (principal)
CPT/HCPCS: 36415; 78815; 82947; A9552

== ENCOUNTER → 2025-05-22 09:30 | Outpatient (REF) | payer BC, SELFPAY ==
[2025-05-22 10:22] LABS: Hematocrit 26.6 % (39.0-52.0); Hemoglobin 8.7 g/dL (13.0-18.0); Mean Corp Hgb Conc. 32.7 g/dL (33.0-37.0); Mean Corpuscular Volume 86.4 fL (80.0-94.0); Platelet Count 144 10^3/uL (130-400); Red Cell Dist. Width 18.7 % (11.5-14.5)
[2025-05-22 11:26] LABS: ALT (SGPT) 43 U/L (0-50); AST (SGOT) 30 U/L (17-59); Albumin 3.6 g/dl (3.5-5.0); Alkaline Phosphatase 98 U/L (38-126); Blood Urea Nitrogen 14 mg/dl (9-20); Calcium 9.1 mg/dl (8.4-10.2); Carbon Dioxide 28 mmol/L (22-30); Chloride 104 mmol/L (98-107); Glucose 109 mg/dl (70-99); Magnesium 1.7 mg/dl (1.6-2.3); Sodium 137 mmol/L (135-145); Total Protein 6.8 g/dl (6.3-8.2); eGFR > 60.00
[2025-05-22 11:48] LABS: Potassium 4.1 mmol/L (3.5-5.1)
[2025-05-22 12:08] LABS: Absolute Neutrophils -Man Diff 1.9 10^3/uL (1.4-6.5)
[2025-05-22 12:10] LABS: Anisocytosis 1+; Hypochromasia 1+; Normal RBC Morphology No; Ovalocytes Slight; Platelets Checked Yes; Polychromasia Slight; Total Cells Counted 100
== END ==
LOC: REG 09:30
PROVIDERS: ATTENDING PHYSICIAN Internal Medicine Hematology & Oncology; FAMILY PHYSICIAN Internal Medicine
DX: C18.7 Malignant neoplasm of sigmoid colon (principal)
CPT/HCPCS: 36415; 80053; 83735; 85025

== ENCOUNTER 2025-06-02 13:03 | Inpatient (IN) | payer BC, SELFPAY ==
[2025-06-02 09:29] VITALS: BP 110/78
--- NOTE | 2025-06-02 09:56 | ED.GENMED ---
History of Present Illness
<Melvi Ashford PA-C - Last Filed: 06/02/25 22:40>
General
Chief Complaint: Fever
Source: patient and family
Exam Limitations: none
Time Seen by Provider: 06/02/25 09:51
Nursing documentation reviewed up to this point in time: agreed with
History of Present Illness
History of Present Illness:
Patient is a 34-year-old male with history of stage IV colon cancer on chemotherapy who presents to the emergency department with fever.. Patient reports fever over the past 2 days with Tmax of 102.4F this morning. He took 650 mg Tylenol around
8:15 AM prior to coming to the emergency department. He states he overall feels well although does have sore throat, which has been a frequent symptom following chemotherapy due to sores in mouth. He reports a few days of a dry cough. No headache
or neck pain. No abdominal pain. No nausea, vomiting, or diarrhea. No dysuria. No new rash.
He does note that his and child were recently sick with the flu. He received both an influenza and a COVID-vaccine.
Mom states that he seemed slightly 'confused' this morning on the way to the emergency department however this is since resolved.
His last chemotherapy treatment was 10 days ago. He follows with Dr. Ramos.
Review of Systems
<Melvi Ashford PA-C - Last Filed: 06/02/25 22:40>
Review of Systems
Allergies reviewed?: Yes
All Other Systems: ROS reviewed and negative except as documented in HPI and ROS
Phy Exam
<Melvi Ashford PA-C - Last Filed: 06/02/25 22:40>
Physical Exam
Physical Exam:
Vitals: Mildly tachycardic. Otherwise vital signs stable. Temp 99.1 F
General: Patient is chronically ill-appearing. Pale.
Skin: Warm and dry, no rashes or lesions
Head: Normocephalic, atraumatic
Eyes: Sclera nonicteric.
Throat: Few ulcers noted on hard palate. Uvula midline. No tonsillar exudates. Protecting airway
Neck: Normal ROM, no cervical spine tenderness, no meningismus
Cardiac: Mildly tachycardic, normal rhythm, no murmurs.
Pulm: Normal respiratory effort. Lungs clear bilaterally. Infrequent cough.
Abdomen: No abdominal tenderness.
Extremities: No evidence of cyanosis or edema
Neuro: AAOx3. Grossly intact.
Psychiatric: Normal affect.
Course
<Melvi Ashford PA-C - Last Filed: 06/02/25 22:40>
Orders/Labs/Results
Orders:
Orders
06/02/25 10:03
COVID-19 Antigen Urgent
Source: Nasal Swab
Complete Blood Count/With Diff Urgent
Comprehensive Metabolic Panel Urgent
Manual Differential Urgent
Blood Culture Urgent
EMEKA Source: Blood/Venous
Specimen Description:
Influenza A+B Rapid Molecular Urgent
EMEKA Source: Nasal Swab
Specimen Description:
06/02/25 10:04
Lactic Acid Urgent
06/02/25 10:11
Blood Culture Urgent
EMEKA Source: Blood/Venous
Specimen Description:
06/02/25 10:12
0.9% Sodium Chloride 1000 ml [Nss] 1,000 ml IV BOLUS
CR Chest - 2 Views Urgent
Comment: on chemo
Reason For Exam: fever, cough
06/02/25 11:52
Cefepime HCl [Maxipime] 2,000 mg IV NOW STA
06/02/25 12:21
Ondansetron Injectable [Zofran] 4 mg IV NOW STA
06/02/25 12:22
EKG [Electrocardiogram (*1)] Stat
Reason for Study: QTc Monitoring
06/02/25 12:23
Ondansetron Injectable [Zofran] 4 mg .ROUTE .STK-MED ONE
06/02/25 12:36
Admit/Transfer Patient As Directed
Co-Sign Provider:
Level of Care: Inpatient admission
Assign to:: Telemetry
Physician / Group: eze
Diagnosis: neutrapenic fever
Reason for Telemetry: Arrhythmia
Date to Stop Telemetry: 06/05/25
Time to Stop Telemetry: 11:00
Reason for Hospitalization: neutropenic fever
Expected length of stay greater than two midnights?: Yes
ELOS- Estimated Length of Stay in days: 3
I certify the patient meets the requirements for IP care: Yes
06/02/25 12:37
Code Status As Directed
Resuscitation Status: Full Code
PRN Pain Medication Management As Directed
May give lesser potent ordered pain med per pt: Yes
preference::
Protocol:: Medication orders for pain may be administered in a
manner that supports deferring to patient preference
when the pt is:
- Requesting an ordered lesser potent pain medication.
Least to most potent pain medications are defined
as: acetaminophen < NSAID < tramadol < opioids
(morphine, oxycodone, hydromorphone).
- Requesting a lesser dose of the same medication IF
ORDERED.
- Requesting a less intrusive route of administration
if both routes are prescribed by the provider (PO <
IV).
06/02/25 12:50
Chest/Abd/Pelvis w Contrast CT [CT Chest/abd/pel W Iv Cont] Urgent
Comment:
Reason For Exam: pain
06/02/25 13:02
Vancomycin [Vancocin] 2,000 mg 0.9% Sodium Chloride 500 ml [Nss] 500 ml IV NOW
06/02/25 14:04
Urinalysis Reflex To Culture Urgent
Date Specimen was Collected: 06/02/25
Time Specimen was Collected: 14:04
06/02/25 15:47
0.9% Sodium Chloride 1000 ml [Nss] 1,000 ml IV 100 mls/hr
Acetaminophen [Tylenol] 650 mg PO Q4HPRN PRN
Bisacodyl [Dulcolax] 10 mg RECTAL [id number] PRN
Docusate W/Senna [Senokot-S] 1 tablet PO BIDPRN PRN
Ondansetron Injectable [Zofran] 4 mg IV Q6HPRN PRN
Polyethylene Glycol Powder [Miralax] 17 grams PO DAILYPRN PRN
Tramadol HCl [Ultram] 50 mg PO Q6HPRN PRN
VANCOMYCIN Pharmacy to Dose [VANCOCIN Pharmacy to Dose] 1 each Pharmacy To Prepare [Call Pharmacy To Prepare] 0 ml IV PER PROTOCOL
06/02/25 15:47
ONCOLOGY CONSULT Routine
Consulting Provider: Riley Warren
Was physician already notified: Yes
Activity As Directed
Activity Level: As Tolerated
Precautions As Directed
Type of Precautions: Neutropenic
Vital Signs As Directed
Frequency: Per unit guidelines
DX Deep Vein Thrombosis Video Routine
06/02/25 18:00
Cefepime HCl [Maxipime] 1,000 mg IV Q6H
06/02/25 20:00
Heparin 5,000 units SC Q12
06/03/25 06:00
Basic Metabolic Panel IN AM
Complete Blood Count/No Diff IN AM
06/04/25 06:00
Basic Metabolic Panel IN AM
Complete Blood Count/No Diff IN AM
06/05/25 06:00
Basic Metabolic Panel IN AM
Complete Blood Count/No Diff IN AM
06/05/25 11:00
DC Protocol for Telemetry ONCE
06/06/25 06:00
Basic Metabolic Panel IN AM
Abnormal Lab Results
06/02/25
10:03
WBC 0.5 L* 10^3/uL
(4.8-10.8)
RBC 2.88 L 10^6/uL
(4.70-6.10)
Hgb 8.1 L g/dL
(13.0-18.0)
Hct 25.1 L %
(39.0-52.0)
MCHC 32.3 L g/dL
(33.0-37.0)
RDW 19.4 H %
(11.5-14.5)
Plt Count 97 L 10^3/uL
(130-400)
Abs Neuts (Manual) 0.0 L* 10^3/uL
(1.4-6.5)
Segmented Neutrophils 8 L %
(42-75)
Lymphocytes (Manual) 92 H %
(20-51)
Sodium 130 L mmol/L
(135-145)
Glucose 145 H mg/dl
(70-99)
Calcium 8.3 L mg/dl
(8.4-10.2)
06/02/25 10:03
06/02/25 10:03
Vital Signs
Initial and Last Documented VS:
Initial Vital Signs
Temp Pulse Resp BP Pulse Ox
99.1 F 104 16 110/78 95
06/02/25 09:29 06/02/25 09:29 06/02/25 09:29 06/02/25 09:29 06/02/25 09:29
Last Documented Vital Signs
Temp Pulse Resp BP Pulse Ox
99.4 F 85 18 124/71 97
06/02/25 21:39 06/02/25 19:00 06/02/25 19:00 06/02/25 19:00 06/02/25 19:00
<Evan Arevalo, DO - Last Filed: 06/02/25 17:16>
Orders/Labs/Results
Orders:
Orders
06/02/25 10:03
COVID-19 Antigen Urgent
Source: Nasal Swab
Complete Blood Count/With Diff Urgent
Comprehensive Metabolic Panel Urgent
Manual Differential Urgent
Blood Culture Urgent
EMEKA Source: Blood/Venous
Specimen Description:
Influenza A+B Rapid Molecular Urgent
EMEKA Source: Nasal Swab
Specimen Description:
06/02/25 10:04
Lactic Acid Urgent
06/02/25 10:11
Blood Culture Urgent
EMEKA Source: Blood/Venous
Specimen Description:
06/02/25 10:12
0.9% Sodium Chloride 1000 ml [Nss] 1,000 ml IV BOLUS
CR Chest - 2 Views Urgent
Comment: on chemo
Reason For Exam: fever, cough
06/02/25 11:52
Cefepime HCl [Maxipime] 2,000 mg IV NOW STA
06/02/25 12:21
Ondansetron Injectable [Zofran] 4 mg IV NOW STA
06/02/25 12:22
EKG [Electrocardiogram (*1)] Stat
Reason for Study: QTc Monitoring
06/02/25 12:23
Ondansetron Injectable [Zofran] 4 mg .ROUTE .STK-MED ONE
06/02/25 12:36
Admit/Transfer Patient As Directed
Co-Sign Provider:
Level of Care: Inpatient admission
Assign to:: Telemetry
Physician / Group: eze
Diagnosis: neutrapenic fever
Reason for Telemetry: Arrhythmia
Date to Stop Telemetry: 06/05/25
Time to Stop Telemetry: 11:00
Reason for Hospitalization: neutropenic fever
Expected length of stay greater than two midnights?: Yes
ELOS- Estimated Length of Stay in days: 3
I certify the patient meets the requirements for IP care: Yes
06/02/25 12:37
Code Status As Directed
Resuscitation Status: Full Code
PRN Pain Medication Management As Directed
May give lesser potent ordered pain med per pt: Yes
preference::
Protocol:: Medication orders for pain may be administered in a
manner that supports deferring to patient preference
when the pt is:
- Requesting an ordered lesser potent pain medication.
Least to most potent pain medications are defined
as: acetaminophen < NSAID < tramadol < opioids
(morphine, oxycodone, hydromorphone).
- Requesting a lesser dose of the same medication IF
ORDERED.
- Requesting a less intrusive route of administration
if both routes are prescribed by the provider (PO <
IV).
06/02/25 12:50
Chest/Abd/Pelvis w Contrast CT [CT Chest/abd/pel W Iv Cont] Urgent
Comment:
Reason For Exam: pain
06/02/25 13:02
Vancomycin [Vancocin] 2,000 mg 0.9% Sodium Chloride 500 ml [Nss] 500 ml IV NOW
06/02/25 14:04
Urinalysis Reflex To Culture Urgent
Date Specimen was Collected: 06/02/25
Time Specimen was Collected: 14:04
06/02/25 15:47
0.9% Sodium Chloride 1000 ml [Nss] 1,000 ml IV 100 mls/hr
Acetaminophen [Tylenol] 650 mg PO Q4HPRN PRN
Bisacodyl [Dulcolax] 10 mg RECTAL [id number] PRN
Docusate W/Senna [Senokot-S] 1 tablet PO BIDPRN PRN
Ondansetron Injectable [Zofran] 4 mg IV Q6HPRN PRN
Polyethylene Glycol Powder [Miralax] 17 grams PO DAILYPRN PRN
Tramadol HCl [Ultram] 50 mg PO Q6HPRN PRN
VANCOMYCIN Pharmacy to Dose [VANCOCIN Pharmacy to Dose] 1 each Pharmacy To Prepare [Call Pharmacy To Prepare] 0 ml IV PER PROTOCOL
06/02/25 15:47
ONCOLOGY CONSULT Routine
Consulting Provider: Riley Warren
Was physician already notified: Yes
Activity As Directed
Activity Level: As Tolerated
Precautions As Directed
Type of Precautions: Neutropenic
Vital Signs As Directed
Frequency: Per unit guidelines
DX Deep Vein Thrombosis Video Routine
06/02/25 18:00
Cefepime HCl [Maxipime] 1,000 mg IV Q6H
06/02/25 20:00
Heparin 5,000 units SC Q12
06/03/25 06:00
Basic Metabolic Panel IN AM
Complete Blood Count/No Diff IN AM
06/04/25 06:00
Basic Metabolic Panel IN AM
Complete Blood Count/No Diff IN AM
06/05/25 06:00
Basic Metabolic Panel IN AM
Complete Blood Count/No Diff IN AM
06/05/25 11:00
DC Protocol for Telemetry ONCE
06/06/25 06:00
Basic Metabolic Panel IN AM
Abnormal Lab Results
06/02/25
10:03
WBC 0.5 L* 10^3/uL
(4.8-10.8)
RBC 2.88 L 10^6/uL
(4.70-6.10)
Hgb 8.1 L g/dL
(13.0-18.0)
Hct 25.1 L %
(39.0-52.0)
MCHC 32.3 L g/dL
(33.0-37.0)
RDW 19.4 H %
(11.5-14.5)
Plt Count 97 L 10^3/uL
(130-400)
Abs Neuts (Manual) 0.0 L* 10^3/uL
(1.4-6.5)
Segmented Neutrophils 8 L %
(42-75)
Lymphocytes (Manual) 92 H %
(20-51)
Sodium 130 L mmol/L
(135-145)
Glucose 145 H mg/dl
(70-99)
Calcium 8.3 L mg/dl
(8.4-10.2)
06/02/25 10:03
06/02/25 10:03
Vital Signs
Initial and Last Documented VS:
Initial Vital Signs
Temp Pulse Resp BP Pulse Ox
99.1 F 104 16 110/78 95
06/02/25 09:29 06/02/25 09:29 06/02/25 09:29 06/02/25 09:29 06/02/25 09:29
Last Documented Vital Signs
Temp Pulse Resp BP Pulse Ox
99.4 F 85 18 124/71 97
06/02/25 21:39 06/02/25 19:00 06/02/25 19:00 06/02/25 19:00 06/02/25 19:00
<Melvi Ashford PA-C - Last Filed: 06/02/25 22:40>
MDM/Problems Addressed
Differential Diagnosis Includes:
Not limited to: Neutropenic fever, viral illness, UTI, bronchitis/pneumonia, bacteremia, etc.
MDM/Problems Addressed:
34-year-old male with concerns of neutropenic fever. He is currently on chemotherapy for stage IV colon cancer. History of fever over the past two days with Tmax of 102.4 this morning. He is mildly tachycardic and afebrile although took tylenol
prior to arrival.
With immune compromised state and history of fever, septic workout obtained.
Labs reveal pancytopenia with significant leukopenia and neutrophil count of zero. Chemistry unremarkable. Lactic acid normal. Viral studies negative and chest X-ray without acute findings.
Unknown source of fever. However, given critically low neutrophil count � concern for neutropenic fever. Discussed with rigger up who recommends admission for further evaluation/management, pending blood cultures.
Discussed with patient and family who are comfortable with plan. Patient started on broad-spectrum antibiotics, vancomycin and cefepime. Patient accepted to hospitalist service in stable condition.
Chronic conditions affecting care:
Stage IV colon cancer on chemotherapy
Acute Exacerbation and/or Progression of Chronic Illness:
Neutropenic fever
<Melvi Ashford PA-C - Last Filed: 06/02/25 22:40>
*Radiology
Radiology exam reviewed: radiology read reviewed
*Pulse Oximetry
SaO2: 95
Oxygen Mode of Delivery: Room air
Patient hypoxic: no
*EKG
Interpreted by ED Provider?: NA
*Gauge Operator Interpretation
Rate: normal
Interpretation: normal
Heart Rate: 88
Rhythm: sinus
*Critical Care Note
Total Time (30-74mins, 75-104mins- exclusive of procedures): Not Applicable
<MARSHA Morse Last Filed: 06/02/25 22:40>
Patient Management
Discussion with other providers: Hospitalist and Anthropologist (Case discussed with hemtology)
ED Attending Note
<Melvi Ashford PA-C - Last Filed: 06/02/25 22:40>
-
Portions of this chart may have been created with voice recognition software.� Occasional wrong word or��sound alike� substitutions may have occurred due to the inherent limitations of voice recognition software.
<Evan Arevalo DO - Last Filed: 06/02/25 17:16>
ED Attending Note
Patient seen and examined by attending physician: Yes
I performed the substantive portion of visit, reviewed & personally made and approve the management plan that is documented in note by myself or KYLE.: Yes
ED Attending Note:
I evaluated the patient at bedside. The patient has neutropenic fever and remains borderline tachycardic however he is normotensive. He has shaking chills and appears pale. The patient has history of stage IV colon cancer diagnosed earlier this
year
Discharge Plan
Departure
Patient Disposition: Admit
Date of Disposition: 06/02/25
Time of Disposition: 11:53
Presentation/result/management discussed w/ accepting MD/DO: Hospitalist
Discharge Problem:
Neutropenic fever
Interventions
Interventions:
*Risk Screen - Suicide Last Done: 06/02/25 16:09
*General Assessment Last Done: 06/02/25 10:08
*Neglect/Abuse Screening Last Done: 06/02/25 09:29
*ED- Fall Risk Assessment Last Done: 06/02/25 09:48
*ED COVID-19 Vaccine History Last Done: 06/02/25 16:09
*ED Influenza Vaccine History Last Done: 06/02/25 09:48
*Nursing Disposition Last Done: 06/02/25 13:46
ED- Neurological Assessment Last Done: 06/02/25 09:48
ED-Skin Assessment Last Done: 06/02/25 09:48
Discharge Date and Time
Discharge Date/Time: 06/02/25 15:51
[2025-06-02 10:08] VITALS: BMI 20.8
[2025-06-02] MEDS: NSS 1000 IV ×2 (10:14→19:36)
[2025-06-02 10:30] LABS: COVID-19 Antigen Negative (Negative)
[2025-06-02 10:38] LABS: Hematocrit 25.1 % (39.0-52.0); Hemoglobin 8.1 g/dL (13.0-18.0); Mean Corp Hgb Conc. 32.3 g/dL (33.0-37.0); Mean Corpuscular Volume 87.2 fL (80.0-94.0); Platelet Count 97 10^3/uL (130-400); Platelets Checked Yes; Red Cell Dist. Width 19.4 % (11.5-14.5)
[2025-06-02 10:39] LABS: Anisocytosis 1+; Normal RBC Morphology No; Ovalocytes Slight; Total Cells Counted 100
[2025-06-02 10:40] LABS: Absolute Neutrophils -Man Diff 0.0 10^3/uL (1.4-6.5)
[2025-06-02 10:41] LABS: ALT (SGPT) 20 U/L (0-50); AST (SGOT) 19 U/L (17-59); Albumin 3.7 g/dl (3.5-5.0); Alkaline Phosphatase 122 U/L (38-126); Blood Urea Nitrogen 17 mg/dl (9-20); Calcium 8.3 mg/dl (8.4-10.2); Carbon Dioxide 25 mmol/L (22-30); Chloride 99 mmol/L (98-107); Estimated Creatinine Clearance > 125 ml/min; Glucose 145 mg/dl (70-99); Potassium 4.0 mmol/L (3.5-5.1); Sodium 130 mmol/L (135-145); Total Protein 6.8 g/dl (6.3-8.2); eGFR > 60.00
[2025-06-02 11:01] VITALS: BP 128/79
[2025-06-02] MEDS: MAXIPIME 2000 MG IV (11:55)
--- NOTE | 2025-06-02 12:07 | HPS.HSE ---
Addendum entered and electronically signed by Gerald Benson MD 06/02/25 15:06:
This is an addendum to H&P written by Mayte Dunne on 06/02/2025. �Patient seen and examined independently with PSYCHIATRIC SOCIAL WORKER.
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
lethargy. �Abdominal pain while examined today with dry heaving. �Also ongoing intermittent constipation/diarrhea. �Ongoing sores in the mouth, sore throat.
His and kids had flulike illness a week ago but did not actually test for influenza.
Vital signs show tachycardia up to 104.
Labs show white blood cell count of 0.5 with ANC of 0. �Stable anemia of 8.1. �Thrombocytopenia of 97.
Chest x-ray shows no active cardiopulmonary disease. �Lactic acid of 0.8. �COVID and flu negative.
Patient with neutropenic fever suspect viral URI versus intra-abdominal pathology. Blood cultures pending. �IV fluids. �Check CT chest abdomen pelvis. �Empiric vancomycin/cefepime. �Oncology consulted.
Original Note:
Family Physician
-
Family Physician: Loki Ramos
Chief Complaint
-
fever
History of Present Illness
34-year-old male with history of stage IV colon cancer on chemotherapy who presents to the emergency department with fever. Patient reports fever over the past 2 days with Tmax of 102.4F this morning. He took 650 mg Tylenol around 8:15 AM prior to
coming to the emergency department. patient complained of sore throat and has sores in his mouth. patient complained of non productive cough. denied RODRIGUEZ, dizzy or syncope. denied chest pain, sob. he is complaining of abdominal pain and nausea today.
denied vomiting or diarrhea. denied dysuria or hematuria. as per mom, he seemed confused, he is not able to retrieve his med list from the phone. he got nauseous while I was in the room and stated his abdomen hurts. He does note that his and
child were recently sick with URI symptoms. He received both an influenza and a COVID-vaccine.
His last chemotherapy treatment was 10 days ago. He follows with Dr. Ramos.
Medical History
Past Medical History
Past Medical History: Reports Other
Additional Past Medical History:
colon cancer stage IV
Past Surgical History: Reports Other
Additional Past Surgical History:
colon tumor removed
colon surgery
Social History
Tobacco: Non-smoker
Alcohol: None
Drug: None
Personal:
Living: With Family
Family History
Family History: Not pertinent
Allergies / Home Medications
Allergies reflects when Allergies were last updated in [facility].
Home Medications with original date entered in [facility]
Allergy/Medication List:
Allergies
Allergy/AdvReac Type Severity Reaction Status Date / Time
No Known Allergies Allergy Verified 04/29/25 09:46
Home Medications
tramadol 50 mg tablet 50 mg PO Q8H PRN Pain #30 tabs 02/25/25
naproxen 500 mg tablet 500 mg PO BID #10 tabs 03/21/25
Review of Systems
-
Constitutional: Reports No Symptoms
EENT: Reports No Symptoms
Respiratory: Reports No Symptoms
Cardiac: Reports No Symptoms
Abdomen/GI: Reports Abdominal Pain and Nausea
: Reports No Symptoms
Musculoskeletal: Reports No Symptoms
Skin: Reports No Symptoms
Neurological: Reports No Symptoms
Endocrine: Reports No Symptoms
Hematologic/Lymphatic: Reports No Symptoms
Psych: Reports No Symptoms
Physical Exam
Vital Signs
Vital Signs
Temp Pulse Resp BP Pulse Ox
97.7 F 97 17 128/79 98
06/02/25 11:04 06/02/25 11:01 06/02/25 11:01 06/02/25 11:01 06/02/25 11:04
Physical Exam
General: Well Developed, Well Nourished and No Apparent Distress
HEENT: NormoCephalic, Moist mucous membranes and Atraumatic
Respiratory: Clear
Cardiac: S1/S2 and Regular Rhythm; No Murmur or Rub
GI: Soft, Non Tender, Non Distended and Normal Bowel Sounds; No Organomegaly
Rectal: Deferred by Provider
Musculoskeletal: No Clubbing, No Cyanosis and No Edema
Skin: No Rash
Neuro: AO x 3 and Nonfocal/grossly intact
Psych: Calm
Laboratory Results
-
06/02/25 10:03
06/02/25 10:03
Laboratory Results
Lactic Acid 0.8 mmol/L (0.7-2.0) 06/02/25 10:04
Total Bilirubin 0.5 mg/dl (0.2-1.3) 06/02/25 10:03
AST 19 U/L (17-59) 06/02/25 10:03
ALT 20 U/L (0-50) 06/02/25 10:03
Alkaline Phosphatase 122 U/L (38-126) 06/02/25 10:03
Data Reviewed
-
Diagnostic Radiology: Report Reviewed by me
Lab Data: Labs Reviewed by me
Impression/Plan
-
# Neutropenic fever unclear cause
-Pancytopenic
-wbc 0.5,hgb 8.1,platelets 97,Neuts 0.0,lymphocytes 92%
- Chest x-ray normal
- Urine pending
- Blood cultures sent
- Vanco and cefepime continue
- Tylenol as needed for fever or pain
- Oncology consulted
- COVID-negative, flu negative
-obtain CT chest abdomen pelvis
-neutropenic precaution maintained
# Stage IV colon cancer on chemo
- Last chemo treatment 10 days ago
Hyponatremia likely hypovolemic
- Sodium 130
- Fluids continued
- Continue monitor BMP
#DVT prophylaxis
-heparin sq
#CODE status
-full code
[2025-06-02] MEDS: ZOFRAN 4 MG IV ×2 (12:37→16:33)
--- NOTE | 2025-06-02 12:56 | PHANOTE ---
med rec tech: pt unable to communicate home meds, these are the most recently filled meds from pharmacy
[2025-06-02 13:00] VITALS: BP 128/67
--- NOTE | 2025-06-02 13:10 | EDCM ---
Addendum entered by Patt Avalos 06/02/25 13:15:
Per prior CM note, PCP Daniel Farmer
Original Note:
CM reviewed chart and met with pt and his parents bedside in ED. Pt lives with his and 2 daughters in raised ranch style home. No SHYANNE.
Independent in ADLs, personal care and ambulation at baseline. No assistive devices.
Pt has stage IV colon cancer, receiving chemotherapy at [facility], last treatment 10 days ago.
Confirms prescription coverage.
No hx VN or SNF
PCP: Loki Ramos, his oncologist, does not see any other physicians
Pharmacy: [facility]
Anticipate discharge home, CM will continue to follow for any discharge planning needs.
[2025-06-02] MEDS: VANCOCIN 540 MG IV (13:15)
[2025-06-02 14:26] LABS: Urine Character Clear (Clear)
[2025-06-02 14:37] LABS: Urine Red Blood Cell 0-2 /HPF (0-2); Urine Squamous Cell 0-2 /LPF (Few); Urine White Cell 0-2 /HPF (0-5)
--- NOTE | 2025-06-02 16:00 | PTCARENOTE ---
Pt received from ER. inability to ambulate due to severe dizziness and weakness we transfered her from stretcher to bed. Pt is confused lethargic and able to make needs known. bed alarm placed pt on fall risk.
--- NOTE | 2025-06-02 16:07 | PHA.VAN.IN ---
Assessment
- Assessment
Renal Function: Appears similar to baseline
Maximum Temperature: 99.1F
Minimum Temperature: 97.7F
Concomitant Antimicrobials: Cefepime
AUC Dosing Plan
- Dosing Variables
Dosing Weight (kg): 71.4
Dosing CrCl (ml/min): 148
Vd coefficient (L/kg): 0.7
- Empiric Dosing
Initial / Loading Dose: 2000MG
Maintenance Regimen: 1000MG Q8H
Estimated AUC (mcg*h/mL): 502
Estimated Peak (mcg*h/mL): 31.3
Estimated Trough (mcg/ml): 12.9
Estimated Half Life (H): 5.4
- Monitoring
No levels ordered at this time: Awaiting steady state
Pharmacokinetics Vancomycin I
- -
Patient Age: 34
Patient Sex: Male
Vancomycin Day #: 1
Indication: Neutropenic Fever
Requesting Provider: Mayte
Pertinent Antimicrobial Allergies:
NKDA
Height / Weight:
Height 6 ft 1 in
Actual Weight 71.4 kg
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
- Vital Signs / Lab Results
Temp Pulse Resp BP Pulse Ox
97.7 F 83 23 128/67 95
06/02/25 11:04 06/02/25 15:00 06/02/25 15:00 06/02/25 13:00 06/02/25 12:30
Lab Results - Hematology
06/02/25
10:03
WBC 0.5 L*
Band Neutrophils 0
Lab Results - Chemistry
06/02/25
10:03
BUN 17
Creatinine 0.7
Estimated Creat Clear > 125
Albumin 3.7
06/02/25
10:04
Lactic Acid 0.8
Lab Results - Urine
06/02/25
14:04
Urine Nitrite (Reflex) Negative
Leukocyte Esterase Rfl Negative
Urine WBC (Reflex) 0-2
Ur Squamous Epith Cells 0-2
Urine Bacteria (Reflex) Few A
Microbiology Results
06/02/25 10:03 Influenza Types A & B (LENA) - Final
Nasal Swab Negative for Influenza A & B, NAAT
Negative results must be combined with clinical observations
and patient history.
Nucleic Acid Amplification test (NAAT)performed on the
[employer] NOW platform.
--- NOTE | 2025-06-02 17:20 | W.PN.UPDATE ---
Addendum entered and electronically signed by Gerald Benson MD 06/02/25 22:02:
BMP shows sodium of 126 decreased from 130. Potassium of 3.4. 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 There is mild local mass effect.
Repleted potassium.
CBC shows Hb trending down to 7.1 likely dilutional from fluids.
Stop IV fluids and recheck CBC and BMP as hyponatremia in the setting of brain mass
Check MRI brain with and without contrast. Start dexamethasone 6 mg daily due to mass effect.
Original Note:
Update Note
Progress Note Update
Was notified from nurse the patient was noted to be confused, lethargic and cannot keep eyes open and choking on food. He had a vomiting episode with tea-colored material. He was noted to be pale. On my examination mental status is similar to
previously. Will check CT head. Recheck BMP and CBC.
Keep patient NPO except for sips. Speech and swallow evaluation. Magic mouthwash for mucositis which is likely causing the fishy smell of the vomit.
Patient also evidence of old nasal bleeding. No active nasal bleeding at this time.
CT scan shows evidence of Left lower Lobe pneumonia which is likely the source of infection. Will change cefepime to Zosyn.
[2025-06-02 17:24] VITALS: BP 148/71
[2025-06-02 18:05] LABS: Hematocrit 21.0 % (39.0-52.0); Hemoglobin 7.1 g/dL (13.0-18.0); Mean Corp Hgb Conc. 33.8 g/dL (33.0-37.0); Mean Corpuscular Volume 82.0 fL (80.0-94.0); Platelet Count 68 10^3/uL (130-400); Red Cell Dist. Width 19.0 % (11.5-14.5)
--- NOTE | 2025-06-02 18:15 | PTOTSP ---
ST HOLD NOTE
Received and appreciate DIRECTOR OF CLINICAL APPLICATIONS consultation. Chart reviewed. Pt just recently evaluated by MD less than an hour ago, during which time pt was confused, lethargic, and unable to keep eyes open. Given this information, will hold off on DIRECTOR OF CLINICAL APPLICATIONS evaluation at
this time. Would agree with keeping pt NPO with the utmost of aspiration precautions until alertness/mental status improves. DIRECTOR OF CLINICAL APPLICATIONS to f/u tomorrow to complete evaluation.
[2025-06-02 18:17] LABS: Blood Urea Nitrogen 15 mg/dl (9-20); Calcium 7.9 mg/dl (8.4-10.2); Carbon Dioxide 20 mmol/L (22-30); Chloride 99 mmol/L (98-107); Estimated Creatinine Clearance > 125 ml/min; Glucose 133 mg/dl (70-99); Potassium 3.4 mmol/L (3.5-5.1); Sodium 126 mmol/L (135-145); eGFR > 60.00
[2025-06-02 19:00] VITALS: BP 124/71
--- NOTE | 2025-06-02 19:30 | PTCARENOTE ---
Assumed care of patient from previous RN, patient awake but drowsy on rounds, at bedside, patient had just arrived back from CT Head. No complaints offered at this time. IVFs running, patient due for 1800pm dose of Zosyn as he had been off unit
-- hung by previous RN prior to end of shift. Patient is resting comfortably at this time, call augustin at bedside, will monitor.
[2025-06-02] MEDS: ZOSYN 50 IV (19:36)
[2025-06-02] MEDS: MAGIC OR MIRACLE MOUTHWASH 10 ML PO (19:36)
[2025-06-02] MEDS: KCL 270 MEQ IV (21:16)
[2025-06-02] MEDS: HEPARIN 5000 UNITS SC (21:18)
--- NOTE | 2025-06-02 21:30 | PTCARENOTE ---
During medication pass, patient found attempting to get OOB and stating he needed to urinate. Patient appears to be extremely weak, unable to sit unassisted at bedside to use urinal. During this time, urine spilling from urinal onto bed and patient,
patient wearing briefs, shorts and a pair of pants that were soiled with urine as well, removed. Provided bed bath to patient with warm cleansing wipes, gown and bed linens changed. At this time, patient also felt to be hot to touch, temperature
obtained and read 99.4F oral -- will monitor temps closely overnight. Bed alarm maintained for patient safety, patient remains drowsy and weak. Stat IV potassium ordered and provided to patient at this time, running now. Call augustin in reach, will
monitor.
[2025-06-02 22:36] LABS: Hematocrit 20.6 % (39.0-52.0); Hemoglobin 7.1 g/dL (13.0-18.0); Mean Corp Hgb Conc. 34.5 g/dL (33.0-37.0); Mean Corpuscular Volume 82.1 fL (80.0-94.0); Platelet Count 61 10^3/uL (130-400); Red Cell Dist. Width 19.3 % (11.5-14.5)
[2025-06-02] MEDS: DECADRON 6 MG IV (22:37)
[2025-06-02] MEDS: VANCOCIN 200 IV (22:37)
[2025-06-02 22:44] LABS: Blood Urea Nitrogen 15 mg/dl (9-20); Calcium 8.0 mg/dl (8.4-10.2); Carbon Dioxide 21 mmol/L (22-30); Chloride 100 mmol/L (98-107); Estimated Creatinine Clearance > 125 ml/min; Glucose 134 mg/dl (70-99); Potassium 3.5 mmol/L (3.5-5.1); Sodium 126 mmol/L (135-145); eGFR > 60.00
[2025-06-02 23:00] VITALS: BP 116/65
[2025-06-03] MEDS: ZOSYN 50 IV ×5 (01:23→23:24)
[2025-06-03] MEDS: MAGIC OR MIRACLE MOUTHWASH 10 ML PO ×5 (01:24→23:31)
[2025-06-03 03:40] VITALS: BP 116/65
[2025-06-03] MEDS: VANCOCIN 200 IV ×2 (05:23→15:06)
[2025-06-03 06:00] VITALS: BMI 20.4
[2025-06-03 07:00] VITALS: BP 114/67
[2025-06-03 07:50] LABS: Blood Urea Nitrogen 14 mg/dl (9-20); Calcium 8.1 mg/dl (8.4-10.2); Carbon Dioxide 22 mmol/L (22-30); Chloride 101 mmol/L (98-107); Estimated Creatinine Clearance > 125 ml/min; Glucose 151 mg/dl (70-99); Potassium 3.7 mmol/L (3.5-5.1); Sodium 129 mmol/L (135-145); eGFR > 60.00
--- NOTE | 2025-06-03 07:50 | PTCARENOTE ---
Upon rounds patient was found sitting on side of bed leaning heavily to his left and he was sitting in stool. he stated he had a fart but poop came out. He was covered in stool. with three nurses we cleaned him up got him to a bedside commode and
changed his bed, cleansed the furniture. He proceeded to have a large semisoft brown stool. One heavy assist back to bed. pt very clumsy weak and does not follow directions well. he thinks his kids are playing in the play ground across. we reminded
him it was wednesday. he said oh i saw them there yesterday. theni reminded him yesterday was wednesday and he was in the ER. Pt back to bed, bed alarm on fall risk on.
--- NOTE | 2025-06-03 08:10 | PHA.VAN.FU ---
Vancomycin Assessment / Plan
- Assessment
Renal Function: Stable
WBC's are: Stable
In the past 24 hrs, patient has been: Afebrile
Concomitant Antimicrobials: ZOSYN
- Dosing Plan
Continue: 1000MG Q8H
- Monitoring Plan
Peak Level: 06/05@0100
Trough Level: 06/05@0530
- Follow Up
Pharmacy will continue to follow.
Vancomycin Follow UP
- -
Patient Age: 34
Patient Sex: Male
Vancomycin Day #: 2
Indication: Neutropenic Fever
Requesting Provider: Mayte
Pertinent Antimicrobial Allergies:
NKDA
Height / Weight:
Height 6 ft 1 in
Actual Weight 70.261 kg
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
- Vital Signs / Lab Results
Temp Pulse Resp BP Pulse Ox
98.4 F 87 18 114/67 96
06/03/25 07:00 06/03/25 07:00 06/03/25 07:00 06/03/25 07:00 06/03/25 07:00
Lab Results - Hematology
06/02/25 06/02/25 06/02/25
10:03 17:25 22:22
WBC 0.5 L* 0.5 L* 0.5 L*
Band Neutrophils 0
Lab Results - Chemistry
06/02/25 06/02/25 06/02/25
10:03 17:25 22:22
BUN 17 15 15
Creatinine 0.7 0.5 L 0.6 L
Estimated Creat Clear > 125 > 125 > 125
Albumin 3.7
06/03/25
06:27
BUN 14
Creatinine 0.7
Estimated Creat Clear > 125
Albumin
06/02/25
10:04
Lactic Acid 0.8
Lab Results - Urine
06/02/25
14:04
Urine Nitrite (Reflex) Negative
Leukocyte Esterase Rfl Negative
Ur Squamous Epith Cells 0-2
Microbiology Results
06/02/25 10:03 Influenza Types A & B (LENA) - Final
Nasal Swab Negative for Influenza A & B, NAAT
Negative results must be combined with clinical observations
and patient history.
Nucleic Acid Amplification test (NAAT)performed on the
[employer] NOW platform.
[2025-06-03 08:19] LABS: Hematocrit 21.2 % (39.0-52.0); Hemoglobin 7.3 g/dL (13.0-18.0); Mean Corp Hgb Conc. 34.4 g/dL (33.0-37.0); Mean Corpuscular Volume 83.8 fL (80.0-94.0); Platelet Count 58 10^3/uL (130-400); Red Cell Dist. Width 19.1 % (11.5-14.5)
--- NOTE | 2025-06-03 09:47 | CON.ONC ---
Consultation
-
Date Consultation Requested: 06/02/25
Date Consultation Performed: 06/03/25
Reason for Consultation: neutropenia
Impression
Impression
Neutropenic fevers status post cycle #4 FOLFIRINOX
DYPD
Metastatic mucinous adenocarcinoma
Pineal gland cyst/metastatic lesion
Plan
Plan
Continue to monitor CBC
Anticipate recovery of WBCs in the next few days having again been given Neulasta
Continue broad-spectrum antibiotics
Transfuse hemoglobin less than 7.0 g/dL
Transfuse platelet counts less than 20K
MRI of the brain with and without contrast to further define the abnormality noted in the pineal gland may be completed as an outpatient
Patient History
History of Present Illness
34-year-old male with history of stage IV colon cancerpresents to the emergency department with fever following up for cycle of FOLFIRINOX. Patient reports fever over the past 2 days with Tmax of 102.4F the morning of presentation. He took 650 mg
Tylenol around 8:15 AM prior to coming to the emergency department. Patient complained of sore throat and has sores in his mouth. He was given valacyclovir from the office on 05/25. He complained of non productive cough. He is complaining of
intermittent abdominal pain and nausea. He seemed confused upon presentation underwent an CT scan of the brain which revealed a likely pineal cyst.
Past-Medical/Surgical History
Past Medical History
colon cancer stage IV
Past Surgical History
colon tumor removed
colon surgery
Social History
Tobacco: Non-smoker
Alcohol: None
Drug: None
Personal:
Living: With Family
Family History
Family History: Not pertinent
Patient Medication
�Medication �Instructions �Recorded �Confirmed �Last Taken �Type
ondansetron HCl 4 mg tablet 4 mg PO Q6HPRN PRN nausea 06/02/25 06/02/25 Unknown History
tramadol 50 mg tablet 50 mg PO Q6HPRN PRN moderate pain 06/02/25 06/02/25 Unknown History
Active Medications
Generic Name Dose Route Start Last Admin
Trade Name Freq PRN Reason Stop Dose Admin
Acetaminophen 650 mg 06/02/25 15:47
Acetaminophen 325 Mg Tablet PO 06/30/25 15:46
Q4HPRN PRN
mild pain/RODRIGUEZ/temp> 100.4F
Bisacodyl 10 mg 06/02/25 15:47
Bisacodyl 10 Mg Rectal Suppository RECTAL 06/30/25 15:46
[id number] PRN
constipation
Dexamethasone Sodium Phosphate 6 mg 06/02/25 23:00 06/02/25 22:37
Dexamethasone 4 Mg/Ml 1 Ml Vial IV 06/30/25 22:59 6 mg
Q24H ASTRID Administration
Heparin Sodium 5,000 units 06/02/25 20:00 06/02/25 21:18
Heparin 5,000 Units/Ml 1 Ml Vial SC 06/30/25 19:59 5,000 units
Q12 ASTRID Administration
Vancomycin HCl 1 gram in 200 mls @ 200 mls/hr 06/02/25 22:00 06/03/25 05:23
Vancocin IV 200 mls
Q8H ASTRID Administration
Piperacillin Sod/Tazobactam Sod 3.375 gram in 50 mls @ 100 mls/hr 06/02/25 18:00 06/03/25 05:01
Zosyn IV 50 mls
Q6H ASTRID Administration
Multi-Ingredient Mouthwash/Gargle 10 ml 06/02/25 18:00 06/03/25 05:23
Magic (Miracle) Mouthwash 90 Ml Bottle PO 10 ml
Q6H ASTRID Administration
Ondansetron HCl 4 mg 06/02/25 15:47
Ondansetron 4 Mg/2 Ml Vial IV 06/30/25 15:46
Q6HPRN PRN
nausea and vomiting
Polyethylene Glycol 17 grams 06/02/25 15:47
Polyethylene Glycol Powder 17 Grams Packet PO 06/30/25 15:46
DAILYPRN PRN
constipation
Senna/Docusate Sodium 1 tablet 06/02/25 15:47
Docusate W/Senna (Saide-Colace) Tablet PO 06/30/25 15:46
BIDPRN PRN
constipation
Tramadol HCl 50 mg 06/02/25 15:47
Tramadol Hcl 50 Mg Tablet PO 06/30/25 15:46
Q6HPRN PRN
moderate pain
Review of Systems
-
12 point review of system fails to elicit additional complaints other than occasional nonproductive cough.
Physical Exam
-
Physical Exam
General: Well Developed, Well Nourished and No Apparent Distress
HEENT: NormoCephalic, Moist mucous membranes and Atraumatic
Respiratory: Clear occasional rhonchi that clears with cough
Cardiac: S1/S2 and Regular Rhythm
GI: Soft, Non Tender, Non Distended and Normal Bowel Sounds; No Organomegaly
Musculoskeletal: No Clubbing, No Cyanosis and No Edema
Skin: No Rash or areas of ecchymosis
Neuro: AO x 3 and Nonfocal/grossly intact
Psych: Calm
Labs
Lab Results
WBC 0.6 10^3/uL (4.8-10.8) L* 06/03/25 06:27
RBC 2.53 10^6/uL (4.70-6.10) L 06/03/25 06:27
Hgb 7.3 g/dL (13.0-18.0) L 06/03/25 06:27
Hct 21.2 % (39.0-52.0) L 06/03/25 06:27
MCV 83.8 fL (80.0-94.0) 06/03/25 06:27
MCH 28.9 pg (27.0-31.0) 06/03/25 06:27
MCHC 34.4 g/dL (33.0-37.0) 06/03/25 06:27
RDW 19.1 % (11.5-14.5) H 06/03/25 06:27
Plt Count 58 10^3/uL (130-400) L 06/03/25 06:27
MPV 9.5 fL (7.4-10.4) 06/03/25 06:27
Creatinine 0.7 mg/dL (0.7-1.3) 06/03/25 06:27
Vital Signs
Vital Signs
Temp Pulse Resp BP Pulse Ox
98.4 F 87 18 114/67 96
06/03/25 07:00 06/03/25 07:00 06/03/25 07:00 06/03/25 07:00 06/03/25 07:00
[2025-06-03] MEDS: HEPARIN SC (10:37)
[2025-06-03] MEDS: ZOFRAN 4 MG IV ×2 (10:54→16:23)
[2025-06-03 11:00] VITALS: BP 134/75
--- NOTE | 2025-06-03 13:00 | W.PN.HOSP.TC ---
Today's Communication/Plan
-
Continue antibiotic, pending MRI report
Assessment / Plan
Assessment / Plan
Impression:
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
lethargy. �Abdominal pain while examined today with dry heaving. �Also ongoing intermittent constipation/diarrhea. �Ongoing sores in the mouth, sore throat.
His and kids had flulike illness a week ago but did not actually test for influenza, Labs show white blood cell count of 0.5 with ANC of 0. �Stable anemia of 8.1. �Thrombocytopenia of 97.
CT chest abdomen pelvis:
1. There are tree-in-bud opacities within the left lower lobe which likely represent pneumonia/pneumonitis.
2. Numerous hypodense hepatic lesions which are similar to prior and consistent with hepatic metastasis. There is a soft tissue nodule along the anterior aspect of the right hepatic lobe which is stable to decreased in size from prior and may
represent a peritoneal implant.
3. Extensive upper abdominal hypodense lymphadenopathy, likely metastatic and similar in appearance to prior. Additionally there is a lymph node conglomerate in the upper pelvis with associated calcifications which are likely metastatic nodes.
4. The urinary bladder demonstrate mild circumferential urinary wall thickening which may represent cystitis. Recommend correlation with urinalysis.
5. Soft tissue density adjacent to the sigmoid colon which appear present on prior and may related to known malignanc
CT head showed:
There is a 1.5 x 1.6 x 1.7 cm cystic lesion of the pineal gland with mild local mass effect. This may represent a pineal cyst, however further evaluation with brain MRI with and without contrast is recommended. There are no findings suggestive of
hydrocephalus.
MRI brain done.
Patient seen by oncology.
Currently on vancomycin and Zosyn
Assessment/plan:
Neutropenic fever.
CT chest shows concern of pneumonia.
Started on vancomycin/Zosyn.
Appreciate oncology input.
COVID and flu negative
Concern of cystic lesion on the brain.
CT head shows 1.5 x 1.6 x 1.7 cm cystic lesion of the pineal gland with mild local mass effect. This may represent a pineal cyst, however further evaluation with brain MRI with and without contrast is recommended. There are no findings suggestive
of hydrocephalus.
MRI brain done, results pending.
Continue dexamethasone.
Diarrhea.
Add probiotic
Acute metabolic encephalopathy.
Secondary to sepsis/brain lesion
Pancytopenia.
Secondary to chemotherapy.
Appreciate oncology input
Hyponatremia.
Improving
CODE STATUS: Full code
DVT prophylaxis: SCDs
Diet: Regular diet
Family communication: Discussed with mother at bedside
Disposition: Continue antibiotic, pending MRI report
Total time spent on today's encounter was 55 minutes which included time spent in counseling the patient/family regarding diagnosis and treatment plan as listed above, goals of care, and symptom management. Case was discussed with nursing staff,
specialists, and care coordinators/case management. All labs and imaging personally reviewed by me. Remainder the time spent in detailed review of previous records, lab data, imaging, and other medical provider documentation.
Anticipated Discharge: > 48 hours
Subjective/Interval History
-
Date of Service: June 03, 2025
Patient seen and examined at bedside, mother at bedside, patient is awake but not fully oriented
Objective Data
-
Labs:
Laboratory Results
06/03/25
06:27
WBC 0.6 L*
Hgb 7.3 L
Hct 21.2 L
Plt Count 58 L
Sodium 129 L
Potassium 3.7
Chloride 101
Carbon Dioxide 22
BUN 14
Creatinine 0.7
Glucose 151 H
Calcium 8.1 L
Vital Signs:
Vital Signs
Temp Pulse Resp BP Pulse Ox
98.6 F 83 17 134/75 95
06/03/25 11:00 06/03/25 11:00 06/03/25 11:00 06/03/25 11:00 06/03/25 11:00
I&O
06/02/25 06/03/25 06/04/25
06:59 05:59 06:59
Intake Total 2800 / 2800
Output Total 1100 / 1100
Balance 1700 / 1700
Physical Exam
-
General: Appears in Distress
HEENT: Normocephalic, No Ptosis, PERRLA and Nose Appears Normal
Respiratory: Rales, Rhonchi, Crackles and Accessory Resp Muscle Use
Cardiac: Regular Rhythm and S1/S2
Breast: Deferred by me
GI: Soft, Nontender, Nondistended and Normal Bowel Sounds
Genito-urinary: No Costovertebral Tender
Musculoskeletal: No Clubbing, No Cyanosis and No Edema
Skin: Warm
Neuro: Awake and Alert
Psych: Calm and Confused
Data Reviewed
-
Diagnostic Radiology: Image personally visualized and interpreted and Report Reviewed by me
CT Scan: Image personally visualized and interpreted and Report Reviewed by me
Ultrasound: Image personally visualized and interpreted and Report Reviewed by me
MRI: Image personally visualized and interpreted and Report Reviewed by me
Medical Tests (Nuc Med, Echo etc): Image personally visualized and interpreted and Report Reviewed by me
Labs: Labs Reviewed by me
Old Records: Reviewed
[2025-06-03] MEDS: VISBIOME 2 CAP PO (13:40)
--- NOTE | 2025-06-03 13:55 | PTOTSP ---
Speech Therapy Evaluation:
Pt presents with signs concerning for pharyngeal dysphagia, likely in the setting of stage IV metastatic colon cancer. No s/sx of aspiration at bedside, however trials somewhat limited. Pt reported new onset of choking/regurgitation with thin
liquids. RN also reported concern for aspiration with thin liquids this morning. CT chest with concern for pneumonia/pneumonitis. Given aforementioned areas of concern recommend further assessment of swallowing via VSE.
Recommend:
1. Cautiously continue regular solids and thin liquids. Hold PO if worsening in respiratory status/chest imaging.
2. To minimize risk of ongoing aspiration/aspiration complications, discussed to consume water only in sparing amounts until VSE completed
3. Medications in puree
4. Strict aspiration precautions
5. VSE
6. CUSTOM FURRIER to follow with further recommendations pending VSE
[2025-06-03 15:00] VITALS: BP 122/70
[2025-06-03] MEDS: ULTRAM 50 MG PO (16:59)
[2025-06-03 19:30] VITALS: BP 118/69
[2025-06-03] MEDS: DECADRON 6 MG IV (23:23)
[2025-06-03 23:45] VITALS: BP 131/77
[2025-06-04 03:49] VITALS: BP 121/71
[2025-06-04 05:19] LABS: Hematocrit 21.4 % (39.0-52.0); Hemoglobin 7.1 g/dL (13.0-18.0); Mean Corp Hgb Conc. 33.2 g/dL (33.0-37.0); Mean Corpuscular Volume 82.9 fL (80.0-94.0); Platelet Count 34 10^3/uL (130-400); Red Cell Dist. Width 19.5 % (11.5-14.5)
--- NOTE | 2025-06-04 05:19 | PTCARENOTE ---
Pt AM labs came back with a WBC of 0.4 House provider TT and notified.
[2025-06-04] MEDS: ZOSYN 50 IV ×4 (05:22→23:01)
[2025-06-04 05:23] LABS: Blood Urea Nitrogen 15 mg/dl (9-20); Calcium 8.3 mg/dl (8.4-10.2); Carbon Dioxide 21 mmol/L (22-30); Chloride 100 mmol/L (98-107); Estimated Creatinine Clearance > 125 ml/min; Glucose 139 mg/dl (70-99); Potassium 4.1 mmol/L (3.5-5.1); Sodium 126 mmol/L (135-145); eGFR > 60.00
[2025-06-04] MEDS: MAGIC OR MIRACLE MOUTHWASH 10 ML PO ×4 (05:28→23:00)
[2025-06-04 07:47] VITALS: BP 108/69
[2025-06-04] MEDS: VISBIOME 2 CAP PO (07:53)
[2025-06-04 07:55] LABS: Nucleated Red Blood Cells % 0 % (-)
--- NOTE | 2025-06-04 08:57 | W.PN.ONC2 ---
Today's Communication / Plan
-
follow cultures on broad spectrum abx
optimize performance status and nutritional status
aspiration precautions
transfuse prn
check coags, fibrinogen, iron studies, b12, folate
Impression
Impression
Neutropenic fevers status post cycle #4 FOLFIRINOX (irinotecan & 5FU dose reduced by 50% since cycle 3) on 05/23, pegfilgrastim 05/25, Avastin added in cycle 3
DYPD
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
Pineal gland cyst/cystic pineocytoma
LLL pneumonia +/- pneumonitis
hyponatremia
mouth ulcers
altered mental status
dysphagia
Plan
Plan
Continue to monitor CBC - 0 neutrophils, 0 monocytes
neutropenic precautions, follow cultures -on broad-spectrum antibiotics
Transfuse hemoglobin less than 7.0 g/dL
Transfuse platelet counts less than 20K
avoid nsaids, antiplatelet, anticoagulation with platelet count <50, check DIC panel
Repeat MRI of the brain with and without contrast 3-6 months
speech therapy following, aspiration precautions
Subjective/Objective
Subjective
afebrile, no hypoxia or hypotension
using ondansetron prn nausea
using tramadol prn pain
denies chest pain, sob, or sxs of anemia
Vital Signs:
Vital Signs
Temp Pulse Resp BP Pulse Ox
97.7 F 73 16 108/69 98
06/04/25 07:47 06/04/25 07:47 06/04/25 07:47 06/04/25 07:47 06/04/25 07:47
Lab Results:
Laboratory Data
WBC 0.4 10^3/uL (4.8-10.8) L* 06/04/25 04:43
Hgb 7.1 g/dL (13.0-18.0) L 06/04/25 04:43
Plt Count 34 10^3/uL (130-400) L D 06/04/25 04:43
eGFR > 60.00 06/04/25 04:43
Physical Exam
HEENT: Moist Mucous Membranes; No Jaundice
Pulmonary: Clear
GI: Soft
Extremities: Pulses Present
Neuro: Non Focal
--- NOTE | 2025-06-04 11:08 | PTOTSP ---
Videofluoroscopic swallow study
WFL oral, mild pharyngeal dysphagia suspected to be related to deconditioning from acute on chronic conditions (PNA; stage IV metastatic colon cancer).
Recommend:
1. Regular, Thin liquids
2. Medications as best tolerated
3. Strategies: moisten foods well and/or alternate sips/bites
4. Brief dysphagia f/u at the acute care level for instruction in compensations.
[2025-06-04 11:22] VITALS: BP 126/76
[2025-06-04 12:16] VITALS: BMI 20.4
--- NOTE | 2025-06-04 12:24 | W.PN.HOSP.TC ---
Addendum entered and electronically signed by Brianna Lucio MD 06/04/25 14:44:
Severe Protein Calorie Malnutrition
Original Note:
Today's Communication/Plan
-
Continue antibiotics; follow hematology/oncology recommendations.
Assessment / Plan
Assessment / Plan
Impression:
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
lethargy. �Abdominal pain while examined today with dry heaving. �Also ongoing intermittent constipation/diarrhea. �Ongoing sores in the mouth, sore throat.
His and kids had flulike illness a week ago but did not actually test for influenza, Labs show white blood cell count of 0.5 with ANC of 0. �Stable anemia of 8.1. �Thrombocytopenia of 97.
CT chest abdomen pelvis:
1. There are tree-in-bud opacities within the left lower lobe which likely represent pneumonia/pneumonitis.
2. Numerous hypodense hepatic lesions which are similar to prior and consistent with hepatic metastasis. There is a soft tissue nodule along the anterior aspect of the right hepatic lobe which is stable to decreased in size from prior and may
represent a peritoneal implant.
3. Extensive upper abdominal hypodense lymphadenopathy, likely metastatic and similar in appearance to prior. Additionally there is a lymph node conglomerate in the upper pelvis with associated calcifications which are likely metastatic nodes.
4. The urinary bladder demonstrate mild circumferential urinary wall thickening which may represent cystitis. Recommend correlation with urinalysis.
5. Soft tissue density adjacent to the sigmoid colon which appear present on prior and may related to known malignanc
CT head showed:
There is a 1.5 x 1.6 x 1.7 cm cystic lesion of the pineal gland with mild local mass effect. This may represent a pineal cyst, however further evaluation with brain MRI with and without contrast is recommended. There are no findings suggestive of
hydrocephalus.
MRI brain shows:
Lobulated mass in the pineal gland, which is cystic with peripheral calcifications, and no evidence for internal enhancement. Differential considerations of pineal gland cyst and cystic pineocytoma.
Consider continued imaging follow-up, with suggested initial timeframe of 3-6 months
No evidence for intracranial metastatic disease.
No evidence for acute intracranial abnormality.
Patient seen by oncology.
Initially started on vancomycin and Zosyn, MRSA screen negative, vancomycin dc'd
Assessment/plan:
1. Neutropenic Fever
Imaging: CT chest concerning for pneumonia.
Treatment: Initiated on vancomycin and Zosyn.
Infectious Workup:
COVID and influenza: Negative.
MRSA screen: Negative ? Vancomycin discontinued.
Blood cultures: So far negative.
Consults: Oncology input appreciated.
2. Brain Lesion
CT Head: 1.5 x 1.6 x 1.7 cm cystic lesion in pineal gland with mild local mass effect. No hydrocephalus.
MRI Brain:
Lobulated cystic mass with peripheral calcifications.
No internal enhancement.
Differential: Pineal cyst vs. cystic pineocytoma.
No intracranial metastatic disease or acute abnormality.
Plan: Recommend imaging follow-up in 3�6 months.
With family at bedside
3. Diarrhea
Plan: Added probiotic, diarrhea improved.
4. Acute Metabolic Encephalopathy
Etiology: Likely secondary to sepsis.
Status: Improved.
5. Pancytopenia
Etiology: Secondary to chemotherapy.
Consults: Oncology input appreciated.
6. Hyponatremia
Status: Stable, continue to
Additional Orders & Status
Code Status: Full code.
DVT Prophylaxis: Sequential compression devices (SCDs).
Diet: Regular.
Family Communication: Discussed with at bedside.
Disposition: Continue antibiotics; follow hematology/oncology recommendations.
Total time spent on today's encounter was 55 minutes which included time spent in counseling the patient/family regarding diagnosis and treatment plan as listed above, goals of care, and symptom management. Case was discussed with nursing staff,
specialists, and care coordinators/case management. All labs and imaging personally reviewed by me. Remainder the time spent in detailed review of previous records, lab data, imaging, and other medical provider documentation.
Anticipated Discharge: 24 - 48 hours
Subjective/Interval History
-
Date of Service: June 04, 2025
Patient more awake than yesterday, discussed with at bedside, passed video swallow.
No chest pain, no difficulty breathing.
Objective Data
-
Labs:
Laboratory Results
06/04/25
04:43
WBC 0.4 L*
Hgb 7.1 L
Hct 21.4 L
Plt Count 34 L D
Sodium 126 L
Potassium 4.1
Chloride 100
Carbon Dioxide 21 L
BUN 15
Creatinine 0.6 L
Glucose 139 H
Calcium 8.3 L
Vital Signs:
Vital Signs
Temp Pulse Resp BP Pulse Ox
98.1 F 79 17 126/76 100
06/04/25 11:22 06/04/25 11:22 06/04/25 11:22 06/04/25 11:22 06/04/25 11:22
I&O
06/03/25 06/04/25 06/05/25
05:59 06:59 06:59
Intake Total 2800 / 2800 1320 / 1320
Output Total 1100 / 1100 800 / 800
Balance 1700 / 1700 520 / 520
Physical Exam
-
General: No Apparent Distress
HEENT: Normocephalic, No Ptosis, PERRLA and Nose Appears Normal
Respiratory: Rales, Rhonchi, Crackles and Accessory Resp Muscle Use
Cardiac: Regular Rhythm and S1/S2
Breast: Deferred by me
GI: Soft, Nontender, Nondistended and Normal Bowel Sounds
Genito-urinary: No Costovertebral Tender
Musculoskeletal: No Clubbing, No Cyanosis and No Edema
Skin: Warm
Neuro: Awake and Alert
Psych: Calm and Confused
--- NOTE | 2025-06-04 13:11 | CM ---
Patient seen bedside with spouse.
aware of CM availability, denies home care needs.
Plan: home no needs.
[2025-06-04 13:40] LABS: Ferritin 1560.0 ng/ml (17.9-464.0)
--- NOTE | 2025-06-04 13:40 | PN.CDI ---
CDI
- -
CDI:
Physician Documentation Request
Admit Date: 06/02/25 13:03
Dear Doctor Naveed,
Clinical Indicators:
Patient admitted with neutropenic fever & sepsis; PMH includes Stage IV colon cancer, currently undergoing chemotherapy.
06/04 note/assessment: -'Significant 11lb, 7.14% weight loss over 3-4 months.'
'Pt meets criteria for severe protein calorie malnutrition of chronic illness with >
7.5% wt loss in 3 months, prolonged poor intake prior to hospital admit <75% for >1
month'
Based on the above information and your assessment, which of the following most accurately represents the patient's nutritional status?
Severe Protein Calorie Malnutrition
Other (please specify)
[place] Criteria ([facility] Hospitalist 2017)
2 or more criteria must be present for either
non severe or severe malnutrition
Note that the criteria differs related to the
presence of an acute or chronic illness
Chronic Illness
Energy Intake Non Severe: <75% for >1 month
Severe: <75% for >1 month
Weight Loss Non Severe: 5% over 1 month
7.5% over 3 months
10% over 6 months
20% over 1 year
Severe: >5% over 1 month
>7.5% over 3 months
>10% over 6 months
>20% over 1 year
Body Fat Non Severe: Mild Loss
Severe: Severe Loss
Muscle Mass Non Severe: Mild Loss
Severe: Severe Loss
Fluid Accumulation Non Severe: Mild Accumulation
Severe: Moderate to severe
accumulation
Reduced Engineering Manager Strength Non Severe: N/A
Severe: Measurably reduced
Additional criteria that can be used to Determine if Mild or Moderate Malnutrition ([employer]ck Manual 2018)
Mild Moderate Severe
Albumin gm/dl <3.0 gm/dl <2.5 gm/dl <2.0 gm/dl
Pre Albumin mg/dl <15 gm/dl <10 mg/dl <5.0 mg/dl
BMI <18.5 <17 <16
Use of terms such as suspected, likely, concern for, or probable (associated with a specific diagnosis that is being evaluated, monitored, or treated as if it exists) are acceptable and can be coded in the inpatient setting, when documented at the
time of discharge.
Thank you,
PEG Brown RN
CDI Specialist
available via tiger text
Please use your independent medical judgment in providing your response.
[2025-06-04 16:04] VITALS: BP 136/71
[2025-06-04 19:52] VITALS: BP 119/75
[2025-06-04] MEDS: DECADRON 6 MG IV (22:40)
[2025-06-04 23:20] VITALS: BP 116/76
[2025-06-05 03:14] VITALS: BP 132/72
[2025-06-05] MEDS: ZOFRAN 4 MG IV (03:49)
[2025-06-05] MEDS: ZOSYN 50 IV ×2 (05:12→12:07)
[2025-06-05] MEDS: MAGIC OR MIRACLE MOUTHWASH 10 ML PO ×2 (05:12→12:07)
[2025-06-05 05:28] LABS: Hematocrit 21.0 % (39.0-52.0); Hemoglobin 7.3 g/dL (13.0-18.0); Mean Corp Hgb Conc. 34.8 g/dL (33.0-37.0); Mean Corpuscular Volume 83.3 fL (80.0-94.0); Platelet Count 33 10^3/uL (130-400); Red Cell Dist. Width 19.3 % (11.5-14.5)
[2025-06-05 05:30] LABS: INR 1.50; PT 18.4 Sec (11.4-14.6)
[2025-06-05 05:31] LABS: APTT 34.5 Sec (23.4-35.0); Fibrinogen 595 MG/DL (199-459)
[2025-06-05 05:35] LABS: Blood Urea Nitrogen 15 mg/dl (9-20); Calcium 8.0 mg/dl (8.4-10.2); Carbon Dioxide 21 mmol/L (22-30); Chloride 102 mmol/L (98-107); Estimated Creatinine Clearance > 125 ml/min; Glucose 162 mg/dl (70-99); Potassium 4.2 mmol/L (3.5-5.1); Sodium 132 mmol/L (135-145); eGFR > 60.00
[2025-06-05 06:41] LABS: Folate 15.2 ng/ml (2.76-20); Vitamin B12 > 1000 pg/ml (239-931)
[2025-06-05 07:15] VITALS: BP 108/71
[2025-06-05] MEDS: VISBIOME 2 CAP PO (07:50)
--- NOTE | 2025-06-05 08:34 | W.PN.ONC2 ---
Today's Communication / Plan
-
discharge planning
at bedside provided updates and questions answered
Impression
Impression
Neutropenic fevers status post cycle #4 FOLFIRINOX (irinotecan & 5FU dose reduced by 50% since cycle 3) on 05/23, pegfilgrastim 05/25, Avastin added in cycle 3
pancytopenia secondary to antineoplastic therapy -no evidence DIC on coags, no B12, folate, or iron deficiency
DYPD
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
Pineal gland cyst/cystic pineocytoma
LLL pneumonia
hyponatremia -improving
mouth ulcers
altered mental status
dysphagia
Plan
Plan
Continue to monitor CBC -ANC 0, monocytes 0.1
neutropenic precautions, follow cultures -on broad-spectrum antibiotics
Transfuse hemoglobin less than 7.0 g/dL
Transfuse platelet counts less than 20K
avoid nsaids, antiplatelet, anticoagulation with platelet count <50
Repeat MRI of the brain with and without contrast 3-6 months
speech therapy following, aspiration precautions
next cycle of chemotherapy will be rescheduled upon count recovery
Subjective/Objective
Subjective
afebrile, no hypoxia or hypotension
mucositis improving
denies pain or nausea
Vital Signs:
Vital Signs
Temp Pulse Resp BP Pulse Ox
97.5 F 78 16 108/71 100
06/05/25 07:15 06/05/25 07:15 06/05/25 07:15 06/05/25 07:15 06/05/25 07:15
Lab Results:
Laboratory Data
WBC 0.6 10^3/uL (4.8-10.8) L* 06/05/25 04:47
Hgb 7.3 g/dL (13.0-18.0) L 06/05/25 04:47
Plt Count 33 10^3/uL (130-400) L 06/05/25 04:47
PT 18.4 Sec (11.4-14.6) H 06/05/25 04:47
INR 1.50 06/05/25 04:47
APTT 34.5 Sec (23.4-35.0) 06/05/25 04:47
eGFR > 60.00 06/05/25 04:47
Physical Exam
HEENT: Moist Mucous Membranes and Other (mucocitis); No Jaundice
Pulmonary: Other (unlabored)
GI: Soft
Extremities: Pulses Present; No Edema
Neuro: Non Focal
Orders
Orders
Orders From Last 24 Hours
06/04/25 09:14
NUTRITIONAL SUPPORT TEAM Routine
Precautions As Directed
06/05/25 04:47
B12 [Vitamin B12] IN AM
Fibrinogen IN AM
Folate IN AM
INR [Prothrombin Time] IN AM
PTT IN AM
[2025-06-05 10:25] LABS: Nucleated Red Blood Cells % 0 % (-)
[2025-06-05 11:30] VITALS: BP 131/82
--- NOTE | 2025-06-05 11:52 | W.PN.HOSP.TC ---
Today's Communication/Plan
-
Discharge home today
Assessment / Plan
Assessment / Plan
Impression:
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
lethargy. �Abdominal pain while examined today with dry heaving. �Also ongoing intermittent constipation/diarrhea. �Ongoing sores in the mouth, sore throat.
His and kids had flulike illness a week ago but did not actually test for influenza, Labs show white blood cell count of 0.5 with ANC of 0. �Stable anemia of 8.1. �Thrombocytopenia of 97.
CT chest abdomen pelvis:
1. There are tree-in-bud opacities within the left lower lobe which likely represent pneumonia/pneumonitis.
2. Numerous hypodense hepatic lesions which are similar to prior and consistent with hepatic metastasis. There is a soft tissue nodule along the anterior aspect of the right hepatic lobe which is stable to decreased in size from prior and may
represent a peritoneal implant.
3. Extensive upper abdominal hypodense lymphadenopathy, likely metastatic and similar in appearance to prior. Additionally there is a lymph node conglomerate in the upper pelvis with associated calcifications which are likely metastatic nodes.
4. The urinary bladder demonstrate mild circumferential urinary wall thickening which may represent cystitis. Recommend correlation with urinalysis.
5. Soft tissue density adjacent to the sigmoid colon which appear present on prior and may related to known malignanc
CT head showed:
There is a 1.5 x 1.6 x 1.7 cm cystic lesion of the pineal gland with mild local mass effect. This may represent a pineal cyst, however further evaluation with brain MRI with and without contrast is recommended. There are no findings suggestive of
hydrocephalus.
MRI brain shows:
Lobulated mass in the pineal gland, which is cystic with peripheral calcifications, and no evidence for internal enhancement. Differential considerations of pineal gland cyst and cystic pineocytoma.
Consider continued imaging follow-up, with suggested initial timeframe of 3-6 months
No evidence for intracranial metastatic disease.
No evidence for acute intracranial abnormality.
Patient seen by oncology.
Initially started on vancomycin and Zosyn, MRSA screen negative, vancomycin dc'd.
Overall symptoms improved and patient will be discharged home on oral antibiotics
Assessment/plan:
1. Neutropenic Fever
Imaging: CT chest concerning for pneumonia.
Treatment: Initiated on vancomycin and Zosyn.
Infectious Workup:
COVID and influenza: Negative.
MRSA screen: Negative ? Vancomycin discontinued.
Blood cultures: So far negative.
Consults: Oncology input appreciated.
Overall improving, will be discharged home on oral antibiotics
2. Brain Lesion
CT Head: 1.5 x 1.6 x 1.7 cm cystic lesion in pineal gland with mild local mass effect. No hydrocephalus.
MRI Brain:
Lobulated cystic mass with peripheral calcifications.
No internal enhancement.
Differential: Pineal cyst vs. cystic pineocytoma.
No intracranial metastatic disease or acute abnormality.
Plan: Recommend imaging follow-up in 3�6 months.
With family at bedside
3. Diarrhea
Plan: Added probiotic, diarrhea improved.
4. Acute Metabolic Encephalopathy
Etiology: Likely secondary to sepsis.
Status: Improved.
5. Pancytopenia
Etiology: Secondary to chemotherapy.
Consults: Oncology input appreciated.
6. Hyponatremia
Status: Stable, continue to
Additional Orders & Status
Code Status: Full code.
DVT Prophylaxis: Sequential compression devices (SCDs).
Diet: Regular.
Family Communication: Discussed with at bedside.
Disposition: Discharge home today
Total time spent on today's encounter was 55 minutes which included time spent in counseling the patient/family regarding diagnosis and treatment plan as listed above, goals of care, and symptom management. Case was discussed with nursing staff,
specialists, and care coordinators/case management. All labs and imaging personally reviewed by me. Remainder the time spent in detailed review of previous records, lab data, imaging, and other medical provider documentation.
Anticipated Discharge: Today
Subjective/Interval History
-
Date of Service: June 05, 2025
Patient seen and examined at bedside, at bedside, denies any chest pain or shortness of breath, no abdominal pain, no nausea, no vomiting, no diarrhea or constipation.
Objective Data
-
Labs:
Laboratory Results
06/05/25
04:47
WBC 0.6 L*
Hgb 7.3 L
Hct 21.0 L
Plt Count 33 L
PT 18.4 H
INR 1.50
APTT 34.5
Sodium 132 L
Potassium 4.2
Chloride 102
Carbon Dioxide 21 L
BUN 15
Creatinine 0.5 L
Glucose 162 H
Calcium 8.0 L
Vital Signs:
Vital Signs
Temp Pulse Resp BP Pulse Ox
97.5 F 78 16 108/71 100
06/05/25 07:15 06/05/25 07:15 06/05/25 07:15 06/05/25 07:15 06/05/25 07:15
I&O
06/04/25 06/05/25 06/06/25
06:59 06:59 06:59
Intake Total 1320 / 1320 1780 / 1780
Output Total 800 / 800 1600 / 1600
Balance 520 / 520 180 / 180
Physical Exam
-
General: Well Developed
HEENT: Normocephalic, No Ptosis, PERRLA and Nose Appears Normal
Respiratory: Rales and Accessory Resp Muscle Use
Cardiac: Regular Rhythm and S1/S2
Breast: Deferred by me
GI: Soft, Nontender, Nondistended and Normal Bowel Sounds
Genito-urinary: No Costovertebral Tender
Musculoskeletal: No Clubbing, No Cyanosis and No Edema
Skin: Warm
Neuro: Awake, Alert, Oriented and AO x 3
Psych: Calm
--- NOTE | 2025-06-05 12:10 | W.DCSUMMARY ---
Discharge Summary
Discharge Data
Date of Admission: 06/02/25
Date of Discharge: 06/05/25
Total time spent discharging patient (in min): 40
-
Pending Results: No
Hospital Course
Hospital course
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
lethargy. �Abdominal pain while examined today with dry heaving. �Also ongoing intermittent constipation/diarrhea. �Ongoing sores in the mouth, sore throat.
His and kids had flulike illness a week ago but did not actually test for influenza, Labs show white blood cell count of 0.5 with ANC of 0. �Stable anemia of 8.1. �Thrombocytopenia of 97.
CT chest abdomen pelvis:
1. There are tree-in-bud opacities within the left lower lobe which likely represent pneumonia/pneumonitis.
2. Numerous hypodense hepatic lesions which are similar to prior and consistent with hepatic metastasis. There is a soft tissue nodule along the anterior aspect of the right hepatic lobe which is stable to decreased in size from prior and may
represent a peritoneal implant.
3. Extensive upper abdominal hypodense lymphadenopathy, likely metastatic and similar in appearance to prior. Additionally there is a lymph node conglomerate in the upper pelvis with associated calcifications which are likely metastatic nodes.
4. The urinary bladder demonstrate mild circumferential urinary wall thickening which may represent cystitis. Recommend correlation with urinalysis.
5. Soft tissue density adjacent to the sigmoid colon which appear present on prior and may related to known malignanc
CT head showed:
There is a 1.5 x 1.6 x 1.7 cm cystic lesion of the pineal gland with mild local mass effect. This may represent a pineal cyst, however further evaluation with brain MRI with and without contrast is recommended. There are no findings suggestive of
hydrocephalus.
MRI brain shows:
Lobulated mass in the pineal gland, which is cystic with peripheral calcifications, and no evidence for internal enhancement. Differential considerations of pineal gland cyst and cystic pineocytoma.
Consider continued imaging follow-up, with suggested initial timeframe of 3-6 months
No evidence for intracranial metastatic disease.
No evidence for acute intracranial abnormality.
Patient seen by oncology.
Initially started on vancomycin and Zosyn, MRSA screen negative, vancomycin dc'd.
Overall symptoms improved and patient will be discharged home on oral antibiotics
During hospitalization patient was treated from the following
1. Neutropenic Fever
Imaging: CT chest concerning for pneumonia.
Treatment: Initiated on vancomycin and Zosyn.
Infectious Workup:
COVID and influenza: Negative.
MRSA screen: Negative ? Vancomycin discontinued.
Blood cultures: So far negative.
Consults: Oncology input appreciated.
Overall improving, will be discharged home on oral antibiotics
2. Brain Lesion
CT Head: 1.5 x 1.6 x 1.7 cm cystic lesion in pineal gland with mild local mass effect. No hydrocephalus.
MRI Brain:
Lobulated cystic mass with peripheral calcifications.
No internal enhancement.
Differential: Pineal cyst vs. cystic pineocytoma.
No intracranial metastatic disease or acute abnormality.
Plan: Recommend imaging follow-up in 3�6 months.
With family at bedside
3. Diarrhea
Plan: Added probiotic, diarrhea improved.
4. Acute Metabolic Encephalopathy
Etiology: Likely secondary to sepsis.
Status: Improved.
5. Pancytopenia
Etiology: Secondary to chemotherapy.
Consults: Oncology input appreciated.
6. Hyponatremia
Status: Stable, continue to monitor
Additional Orders & Status
Code Status: Full code.
DVT Prophylaxis: Sequential compression devices (SCDs).
Diet: Regular.
Family Communication: Discussed with at bedside.
Disposition: Discharge home today
Total time spent on today's encounter was 40 minutes which included time spent in counseling the patient/family regarding diagnosis and treatment plan as listed above, goals of care, and symptom management. Case was discussed with nursing staff,
specialists, and care coordinators/case management. All labs and imaging personally reviewed by me. Remainder the time spent in detailed review of previous records, lab data, imaging, and other medical provider documentation.
Anticipated Discharge: Today
Discharge Plan
-
Patient Disposition: Home (Routine Discharge)
Discharge Diagnosis/Procedures: Neutropenic Fever.
cystic lesion in pineal gland
Diet: As tolerated and Regular
Activity: As tolerated
Referrals:
Loki Ramos DO [Family Provider, Hematology / Oncology]
Prescriptions:
New
levofloxacin 750 mg tablet
750 mg PO DAILY 7 Days Qty: 7 0RF
Probiotic 15 billion cell capsule, sprinkle
1 cap PO DAILY Qty: 10 0RF
Continued
ondansetron HCl 4 mg tablet
4 mg PO Q6HPRN PRN (Reason: nausea)
tramadol 50 mg tablet
50 mg PO Q6HPRN PRN (Reason: moderate pain)
Discharge Orders:
Discharge Patient (As Directed); Ordered 06/05/25
Ordered By: Brianna Lucio
Discharge Date and Time
Print Language: ALBANIAN
[2025-06-05 12:17] VITALS: BP 124/74; PULSE 64; O2SAT 100
== END 2025-06-05 14:43 | disposition home or self-care (01) | DRG 871 ==
LOC: 3 WEST ACU 13:03
PROVIDERS: Nurse Practitioner Acute Care; Physician Assistant; Registered Nurse; ADMITTING PHYSICIAN Hospitalist; ATTENDING PHYSICIAN General Practice; CONSULT PHYSICIAN Internal Medicine Hematology & Oncology; EMERGENCY PHYSICIAN Emergency Medicine; FAMILY PHYSICIAN Internal Medicine Hematology & Oncology
DX: A41.9 Sepsis, unspecified organism (principal); D61.810 Antineoplastic chemotherapy induced pancytopenia; G93.41 Metabolic encephalopathy; J18.9 Pneumonia, unspecified organism; E87.1 Hypo-osmolality and hyponatremia; C18.9 Malignant neoplasm of colon, unspecified; C78.7 Secondary malignant neoplasm of liver and intrahepatic bile duct; R65.20 Severe sepsis without septic shock; T45.1X5A Adverse effect of antineoplastic and immunosuppressive drugs, initial encounter; D70.9 Neutropenia, unspecified; R50.81 Fever presenting with conditions classified elsewhere
CPT/HCPCS: 70450; 70553; 71046; 71260; 74177; 74230; 80048; 80053; 81003; 81015; 82607; 82728; 82746; 83605; 85025; 85027; 85384; 85610; 85730; 86850; 86900; 86901; 87040; 87502; 87641; 87811; 92526; 92610; 92611; 93005; 96361; 96374; 96375; 97163; 97165; 99284; A9575; Q9967

== ENCOUNTER → 2025-06-13 16:02 | Outpatient (REF) | payer BC, SELFPAY | LOC: REG 16:02 | PROVIDERS: ATTENDING PHYSICIAN Internal Medicine Hematology & Oncology; FAMILY PHYSICIAN Internal Medicine | DX: C18.7 Malignant neoplasm of sigmoid colon (principal); C78.7 Secondary malignant neoplasm of liver and intrahepatic bile duct | CPT/HCPCS: 36415; 86850; 86900; 86901; 86920 ==

== ENCOUNTER 2025-06-15 09:58 | Outpatient (RCR) | payer BC, SELFPAY ==
[2025-06-15 10:41] VITALS: BP 133/74
[2025-06-15] MEDS: TYLENOL 650 MG PO (10:42)
[2025-06-15 11:01] VITALS: BP 122/65
[2025-06-15] MEDS: BENADRYL 25 MG PO (12:11)
[2025-06-15 12:15] VITALS: BP 133/79
[2025-06-15] MEDS: BENADRYL 25 MG IV (12:36)
[2025-06-15] MEDS: PEPCID 20 MG IV (12:37)
--- NOTE | 2025-06-15 13:06 | PTCARENOTE ---
Pt arrived to receive 2 units PRBC post chemotherapy @ [facility]. Received tylenol as a premed, started PRBC @ 1046. Pt c/o hives and itching at 12:10; Blood stopped, saline started. Benadryl 25mg PO given, Benadryl 25mg IV given and pepcid 20mg IV
given. Fernanda GONZÁLES notified and assessed patient; rapid response called. Blood bank notified. Blood set up transported to [facility], [place] top sent down.
--- NOTE | 2025-06-15 13:12 | RR ---
A Rapid Response was called on this patient.Pt arrived to receive 2 units PRBC post chemotherapy @ [facility]. Received tylenol as a premed, started PRBC @ 1046. Pt c/o hives and itching at 12:10; Blood stopped, saline started. Benadryl 25mg PO given,
Benadryl 25mg IV given and pepcid 20mg IV given. eFrnanda GONZÁLES notified and assessed patient; rapid response called. Blood bank notified. Blood set up transported to [facility], [place] top sent down.
== END 2025-07-01 23:59 | disposition home or self-care (01) ==
LOC: OID 09:58
PROVIDERS: ATTENDING PHYSICIAN Internal Medicine Hematology & Oncology
DX: C18.7 Malignant neoplasm of sigmoid colon (principal); C78.7 Secondary malignant neoplasm of liver and intrahepatic bile duct
CPT/HCPCS: 36415; 36430; 81003; 86078; 86850; 86900; 86901; 86920; 96374; 96375; P9016

== ENCOUNTER 2025-06-15 13:06 | Emergency (ER) | payer BC, SELFPAY ==
[2025-06-15 13:14] VITALS: BP 149/87
--- NOTE | 2025-06-15 14:02 | ED.GENMED ---
History of Present Illness
<Becky Corrales MD, Resident - Last Filed: 06/15/25 15:27>
General
Chief Complaint: Allergic Reaction
Source: patient
Time Seen by Provider: 06/15/25 13:35
History of Present Illness
History of Present Illness:
34-year-old male past medical history of stage IV colon cancer with mets to the liver presents to the ER after receiving blood transfusion. Patient has anemia secondary to chemotherapy and was at the transfusion center for a blood transfusion
today. After a quarter of a first bag, he noted significant itchiness and rash in hands right arm where the transfusion was occurring. The transfusion was stopped immediately and he received 25 mg p.o. Benadryl, 25 mg IV Benadryl, 650 mg Tylenol
and 20 mg of IV Pepcid. He was then sent to the ER for further evaluation. He endorses a rash that appeared on his back however denies any shortness of breath, throat tightening, fever, chills, nausea, vomiting, diarrhea, rash elsewhere. He
currrently feels well with no complaints.
Past History
<Becky Corrales MD, Resident - Last Filed: 06/15/25 15:27>
Past History
ED Past Medical History: Other (Stage IV colon cancer, with liver metastasis, sigmoid perforation status post colonoscopy, )
ED Past Surgical History: Other (Sigmoid perforation status post colonoscopy repair, right arm fracture repair, mole removal, postop pain)
Social History
Tobacco: Non-smoker
Alcohol: None
Drug: None
Personal:
Living: with family
Employment: Retired
Family History
Family History: Other
Review of Systems
<Becky Corrales MD, Resident - Last Filed: 06/15/25 15:27>
Review of Systems
Allergies reviewed?: Yes
Constitutional: Reports no symptoms
EENT: Reports no symptoms
Respiratory: Reports no symptoms
Cardiac: Reports no symptoms
ABD/GI: Reports no symptoms
: Reports no symptoms
Musculoskeletal: Reports no symptoms
Skin: Reports rash
Neurological: Reports no symptoms
Endocrine: Reports no symptoms
Hematologic/Lymphatic: Reports no symptoms
Psychiatric: Reports no symptoms
Phy Exam
<Becky Corrales MD, Resident - Last Filed: 06/15/25 15:27>
Physical Exam
Physical Exam:
General: Well-appearing, sitting on the bed, conversant
Head: Atraumatic
Cardiac: Regular S1, S2, no murmurs
Respiratory: Clear breath sounds bilaterally
Abdomen: Soft, nontender, nondistended, normal bowel sounds
Neurological: Nonfocal
Extremities: No rash on right arm where it was previously, no palpable edema
Back: Faint erythema noted along bilateral flanks. Mom states it is improving from prior.
Course
<Becky Corrales MD, Resident - Last Filed: 06/15/25 15:27>
Orders/Labs/Results
Orders:
Orders
06/15/25 15:04
Urinalysis Routine
06/15/25 17:30
5Hr. Total Bilirubin Routine
Vital Signs
Initial and Last Documented VS:
Initial Vital Signs
Pulse Resp BP Pulse Ox
84 20 149/87 100
06/15/25 13:14 06/15/25 13:14 06/15/25 13:14 06/15/25 13:14
Last Documented Vital Signs
Temp Pulse Resp BP Pulse Ox
98.1 F 83 16 127/73 100
06/15/25 15:08 06/15/25 15:08 06/15/25 15:08 06/15/25 15:08 06/15/25 15:08
<Katty Felton, DO - Last Filed: 06/15/25 14:55>
Orders/Labs/Results
Orders:
Orders
06/15/25 15:04
Urinalysis Routine
06/15/25 17:30
5Hr. Total Bilirubin Routine
Vital Signs
Initial and Last Documented VS:
Initial Vital Signs
Pulse Resp BP Pulse Ox
84 20 149/87 100
06/15/25 13:14 06/15/25 13:14 06/15/25 13:14 06/15/25 13:14
Last Documented Vital Signs
Temp Pulse Resp BP Pulse Ox
98.1 F 83 16 127/73 100
06/15/25 15:08 06/15/25 15:08 06/15/25 15:08 06/15/25 15:08 06/15/25 15:08
<Becky Corrales MD, Resident - Last Filed: 06/15/25 15:27>
MDM/Problems Addressed
Differential Diagnosis Includes:
Transfusion reaction, allergic reaction to something else, viral exanthem, cellulitis
MDM/Problems Addressed:
34-year-old male with past medical history of stage IV colon cancer with mets to the liver presents to the ER for allergic reaction during blood transfusion.
Likely blood transfusion reaction. After receiving the IV and p.o. Benadryl, Tylenol and Pepcid, patient has been stable without any additional complaints. According to mom, rash she is significantly improving. There is no residual rash on the
right arm. Blood bank recommended UA and post-rans total bili. This tests are pending.
15:26
Spoke to pathology over the phone and they explained the 5:30 blood draw is important for then to ensure what type of blood transfusion reaction occurred and if there was a true reaction at all. Will plan to discharge the patient after the blood is
drawn with instructions to follow up with heme/onc afterwards.
Chronic conditions affecting care: Cancer
<Becky Corrales MD, Resident - Last Filed: 06/15/25 15:27>
*Pulse Oximetry
SaO2: 100
Oxygen Mode of Delivery: Room air
Patient hypoxic: no
*Critical Care Note
Total Time (30-74mins, 75-104mins- exclusive of procedures): Not Applicable
Data Reviewed
Review of Other/Old Records Reveals: Labs (WBC 0.6 06/05/25) and Radiology Studies (MRI brain 06/03/25 Lobulated mass in the pineal gland)
Source: patient, records and family
ED Attending Note
<Becky Corrales MD, Resident - Last Filed: 06/15/25 15:27>
-
Portions of this chart may have been created with voice recognition software.� Occasional wrong word or��sound alike� substitutions may have occurred due to the inherent limitations of voice recognition software.
<Katty Felton DO - Last Filed: 06/15/25 14:55>
ED Attending Note
Patient seen and examined by attending physician: Yes
I performed the substantive portion of visit, reviewed & personally made and approve the management plan that is documented in note by myself or KYLE.: Yes
I performed a history and physical exam of patient and discussed management with resident, I reviewed resident's note and agree with documented findings and plan of care.: Yes
ED Attending Note:
34-year-old male with history of stage IV colon cancer with metastasis to the liver arriving after concern for allergic reaction. Patient was receiving a blood transfusion after getting his chemotherapy today at the infusion center. [place]
through the infusion, notes that he had a mild rash and some itching. He was administered Benadryl, Pepcid, Tylenol. Now reports resolution of symptoms. Event occurred around 1215. Denies history of allergic reactions in the past. Denies any
associated respiratory symptoms. Denies ever receiving blood products in the past. Vital signs on arrival are normal.
On exam, patient resting comfortably, no acute distress. No obvious rash. Patient is protecting airway. No oropharyngeal swelling. Lungs are clear to auscultation. From an ER perspective, no concerning symptoms for anaphylactic reaction. No
present additional therapy necessary. However, transfusion reaction protocol is in place. Patient will require additional blood drawl after 5 hours from initial blood draw. With ultimate plan for discharge
Discharge Plan
Departure
Prescriptions:
No Action
ondansetron HCl 4 mg tablet
4 mg PO Q6HPRN PRN (Reason: nausea)
tramadol 50 mg tablet
50 mg PO Q6HPRN PRN (Reason: moderate pain)
prochlorperazine maleate [Compazine] 5 mg Tablet
5 mg PO BID PRN (Reason: nausea)
lidocaine HCl 2 % Solution
1 applic MUCOUS MEMBRANE QID PRN (Reason: mouth sores)
Referrals:
Daniel Farmer MD [Family Provider, Internal Medicine]
Interventions
Interventions:
*Risk Screen - Suicide Last Done: 06/15/25 13:14
*General Assessment Last Done: 06/15/25 13:14
*Neglect/Abuse Screening Last Done: 06/15/25 13:14
*ED COVID-19 Vaccine History Last Done: 06/15/25 13:14
*ED Influenza Vaccine History Last Done: 06/15/25 13:14
ED- Cardiac Assessment Last Done: 06/15/25 13:46
ED- Pulmonary Assessment Last Done: 06/15/25 13:46
ED-Skin Assessment Last Done: 06/15/25 13:46
Discharge Date and Time
Print Language: IRANIAN
[2025-06-15 15:08] VITALS: BP 127/73
[2025-06-15 15:13] LABS: Urine Character Clear (Clear)
[2025-06-15 17:56] LABS: 5Hr. Total Bilirubin 0.4 mg/dl (0.2-1.3)
== END 2025-06-15 17:54 | disposition home or self-care (01) ==
LOC: EMR 13:06
PROVIDERS: EMERGENCY PHYSICIAN Student in an Organized Health Care Education/Training Program; FAMILY PHYSICIAN Internal Medicine
DX: T80.92XA Unspecified transfusion reaction, initial encounter (principal); T45.1X5A Adverse effect of antineoplastic and immunosuppressive drugs, initial encounter; Y92.9 Unspecified place or not applicable; D64.81 Anemia due to antineoplastic chemotherapy; C78.7 Secondary malignant neoplasm of liver and intrahepatic bile duct; Z85.038 Personal history of other malignant neoplasm of large intestine
CPT/HCPCS: 81003; 99282

== ENCOUNTER 2025-06-17 20:00 | Inpatient (IN) | payer BC, SELFPAY ==
[2025-06-17] VITALS (7 sets, daily range): BP systolic 94–134; BP diastolic 45–79; BMI 22.2; BMI 21.9
[2025-06-17] MEDS: TYLENOL 1000 MG PO (15:44)
[2025-06-17] MEDS: NSS 1000 IV ×3 (15:57→21:29)
--- NOTE | 2025-06-17 16:10 | ED.GENMED ---
History of Present Illness
General
Chief Complaint: Fever
Source: patient and spouse
Exam Limitations: none
Time Seen by Provider: 06/17/25 15:47
Nursing documentation reviewed up to this point in time: agreed with
History of Present Illness
History of Present Illness:
Note:
CHIEF COMPLAINT(S)
Dizziness and disorientation.
HISTORY OF PRESENT ILLNESS
The patient is a 34-year-old male who presented with dizziness and disorientation. These symptoms began yesterday. The patients spouse reported that he has been visibly disoriented, unable to recall events accurately. Two weeks prior to this
presentation, the patient experienced a febrile illness and was hospitalized for pneumonia.
The patient has a known diagnosis of stage IV cancer with liver involvement and is currently undergoing chemotherapy. He received chemotherapy two days ago; the medication infusion led to a severe rash reaction, which was notably itchy.
Additionally, he had a platelet transfusion along with the chemotherapy. He also underwent a colon resection in January, performed by Dr. Kwon.
He experienced severe side effects from the chemotherapy, including the rash mentioned above. Three weeks ago, the patient had a low platelet count and a low white blood cell count. He verified an episode where his platelets were recorded around
90,000 to 60,000.
The patient is also experiencing confusion; he incorrectly identified the date today and was unsure about his present surroundings. Additional laboratory tests and antibiotics administration are planned to monitor and manage his current condition
thoroughly.
PAST MEDICAL AND SURGICAL HISTORY
1. Stage IV cancer with liver involvement.
2. Recent hospitalization for pneumonia with a febrile illness three weeks ago.
3. Colon resection performed in January by Dr. Kwon.
REVIEW OF SYSTEMS
- Neurological: Disorientation and dizziness.
- Dermatological: Rash following chemotherapy infusion, itchy.
PHYSICAL EXAM
General: Alert, oriented.
Skin: Warm, dry, with rash reported.
Head: Normocephalic, atraumatic.
Neck: Supple, trachea midline.
Eye, Ears, Nose, Mouth and Throat: Oral mucosa moist.
Cardiovascular: Normal peripheral perfusion, no edema.
Respiratory: Respirations are non-labored.
Gastrointestinal: Abdomen nondistended.
Back: Normal range of motion, normal alignment.
Musculoskeletal: Normal range of motion, normal strength.
Neurological: Alert oriented to time, person, place, and situation, no focal neurological deficit observed.
Psychiatric: Cooperative, appropriate mood and affect.
PROBLEM LIST
Acute:
1. Dizziness and disorientation.
2. Rash from chemotherapy.
3. Low platelet count and white blood cell count.
Chronic:
1. Stage IV cancer with liver metastasis.
PLAN
- Conduct laboratory tests to evaluate blood counts and possible infection markers.
- Initiate antibiotic therapy to address potential underlying infection.
- Monitor and manage chemotherapy-related side effects.
- Assess neurological status continuously due to disorientation.
- Consult oncology for current management and potential adjustments in chemotherapy regimen.
DIFFERENTIAL DIAGNOSIS
The Differential Diagnosis includes, in no particular order and is not limited to:
1. Chemotherapy-induced peripheral neuropathy.
2. Chemotherapy-induced cognitive dysfunction.
3. Central nervous system metastasis.
4. Infectious process, given the history of fever and recent hospitalization.
5. Electrolyte imbalances.
6. Medication side effects or adverse reactions.
7. Anemia or other hematological disorder due to low blood cell counts.
8. Dehydration secondary to chemotherapy.
9. Seizure activity.
10. Vestibular dysfunction.
CARE-UPDATE
06/17/25 - 23:22
The patient exhibits a fever of unclear etiology while on chemotherapy. Admission has been initiated, and hospice care arrangements are in progress. Phosphofanes have been prescribed, and blood cultures are currently pending to identify the
potential source of the fever.
Disposition:
SUMMARY OF ENCOUNTER
The patient presented with fever of unknown etiology and confusion. The history of stage IV colon cancer with liver metastasis, recent chemotherapy, and current symptoms of dizziness and disorientation were noted. Management in the emergency
department included administration of intravenous antibiotics, likely related to a concern for infection, given the patients immunocompromised state from chemotherapy and potential infectious source.
DISPOSITION
Admit to hospitalists.
ASSESSMENT
The patient presents with fever of unknown etiology in the setting of stage IV colon cancer with liver metastasis and recent chemotherapy treatment. The dizziness and disorientation may be multifactorial, possibly related to infection or central
nervous system involvement.
EMERGENCY TREATMENTS ADMINISTERED
Intravenous antibiotics (likely ceftriaxone).
PLAN
The plan includes hospital admission for comprehensive evaluation and management of the fever, infectious work-up, monitoring of his neurological status due to current symptoms, and consultation with oncology for further management of cancer-related
complications.
MEDICAL DECISION MAKING
- Number and Complexity of Problems Addressed: Chronic conditions affecting care [Stage IV cancer with liver metastasis]. Differential diagnosis includes infection, chemotherapy-induced cognitive dysfunction, [employer] metastasis, electrolyte imbalances,
dehydration, anemia, and medication side effects.
- Data:
Category 1: Tests and documents - Labs ordered for infectious work-up; likely includes CBC and other infection markers.
Category 3: Discussion of management with other healthcare providers - Admitting hospitalists for inpatient care.
-Risk: High-risk due to the patients stage IV cancer and currently altered mental status, requiring inpatient evaluation and treatment.
DIAGNOSIS
- Fever of unknown origin (R50.9)
- Hyponatremia (E87.1)
- Malignant neoplasm of colon, unspecified (C18.9)
- Secondary malignant neoplasm of liver (C78.7)
Past History
Past History
ED Past Medical History: Other (Stage IV colon cancer, with liver metastasis, sigmoid perforation status post colonoscopy, )
ED Past Surgical History: Other (Sigmoid perforation status post colonoscopy repair, right arm fracture repair, mole removal, postop pain)
Social History
Tobacco: Non-smoker
Alcohol: None
Drug: None
Personal:
Living: with family
Employment: Retired
Family History
Family History: Other
Phy Exam
Physical Exam
Physical Exam:
.
Sepsis
Sepsis Screening
Sepsis Assessment: Sepsis
Sepsis Screen
Sepsis Screen: Sepsis
Date: 06/17/25
Time: 23:45
Course
Orders/Labs/Results
Orders:
Orders
06/17/25 Breakfast
Regular
At Your Request: Limited Participation
06/17/25 15:40
Electrocardiogram (*1) Urgent
Reason for Study: Other
Other Reason for Exam: Possible Sepsis
EKG- Treatment ONCE
IV Insert/Care/Rem.- Treatment PRN
06/17/25 15:41
Acetaminophen [Tylenol] 1,000 mg .ROUTE .STK-MED ONE
Acetaminophen [Tylenol] 1,000 mg PO NOW STA
06/17/25 15:57
0.9% Sodium Chloride 1000 ml [Nss] 1,000 ml IV BOLUS
06/17/25 15:58
COVID-19 Antigen Urgent
Source: Nasal Swab
Complete Blood Count/With Diff Urgent
Comprehensive Metabolic Panel Urgent
Lactic Acid Q4H
Comment: ON ICE, CANCEL 2ND ORDER IF FIRST LACTIC ACID LEVEL <2
Prothrombin Time Urgent
Blood Culture Q20M
EMEKA Source: Blood/Venous
Specimen Description:
Comment: Urgent from separate sites. If patient screens positive for possible sepsis
Influenza A+B Rapid Molecular Urgent
EMEKA Source: Nasal Swab
Specimen Description:
06/17/25 15:59
Blood Culture Q20M
EMEKA Source: Blood/Venous
Specimen Description:
Comment: Urgent from separate sites. If patient screens positive for possible sepsis
06/17/25 16:13
CR Chest - 2 Views Urgent
Comment:
Reason For Exam: fever
06/17/25 17:20
Urinalysis Reflex To Culture Urgent
Date Specimen was Collected: 06/17/25
Time Specimen was Collected: 17:09
06/17/25 17:58
CT Head W/o Iv Contrast Urgent
Comment:
Reason For Exam: confusion
06/17/25 19:00
Cefepime HCl [Maxipime] 2,000 mg IV NOW STA
06/17/25 19:18
0.9% Sodium Chloride 1000 ml [Nss] 1,000 ml IV BOLUS
06/17/25 19:40
Admit/Transfer Patient As Directed
Co-Sign Provider:
Level of Care: Inpatient admission
Assign to:: Telemetry
Physician / Group: Agustín
Diagnosis: Fever, Colon Cancer on Chemotherapy
Reason for Telemetry: Arrhythmia
Date to Stop Telemetry: 06/20/25
Time to Stop Telemetry: 11:00
Reason for Hospitalization: Fever, Colon Cancer on Chemotherapy
Expected length of stay greater than two midnights?: Yes
ELOS- Estimated Length of Stay in days: 2
I certify the patient meets the requirements for IP care: Yes
06/17/25 19:41
Code Status As Directed
Resuscitation Status: Full Code
PRN Pain Medication Management As Directed
May give lesser potent ordered pain med per pt: Yes
preference::
Protocol:: Medication orders for pain may be administered in a
manner that supports deferring to patient preference
when the pt is:
- Requesting an ordered lesser potent pain medication.
Least to most potent pain medications are defined
as: acetaminophen < NSAID < tramadol < opioids
(morphine, oxycodone, hydromorphone).
- Requesting a lesser dose of the same medication IF
ORDERED.
- Requesting a less intrusive route of administration
if both routes are prescribed by the provider (PO <
IV).
06/17/25 21:03
0.9% Sodium Chloride 1000 ml [Nss] 1,000 ml IV 125 mls/hr
Acetaminophen [Tylenol] 650 mg PO Q4HPRN PRN
Ondansetron Injectable [Zofran] 4 mg IV Q6HPRN PRN
Tramadol HCl [Ultram] 50 mg PO Q6HPRN PRN moderate pain
06/17/25 21:03
Activity As Directed
Activity Level: Ambulate
With Assistance
I/O [Intake/ Output] As Directed
Frequency: Per unit guidelines
Vital Signs As Directed
Frequency: Per unit guidelines
Weight As Directed
Frequency: Daily
Oxygen Therapy [O2 Therapy] [RESP] Routine
Titrate/Wean O2 to maintain O2 sat greater than (%): 94
DX Deep Vein Thrombosis Video Routine
06/18/25 02:00
Piperacillin/Tazo 3.375 Gram [Zosyn] 3.375 gram in 50 ml IV Q6H
06/18/25 06:00
Basic Metabolic Panel IN AM
Complete Blood Count/With Diff IN AM
06/18/25 18:00
Enoxaparin Sodium [Lovenox] 40 mg SC QPM
06/20/25 11:00
DC Protocol for Telemetry ONCE
Abnormal Lab Results
06/17/25
15:58
WBC 27.0 H 10^3/uL
(4.8-10.8)
RBC 2.73 L 10^6/uL
(4.70-6.10)
Hgb 8.1 L g/dL
(13.0-18.0)
Hct 24.6 L %
(39.0-52.0)
MCHC 32.9 L g/dL
(33.0-37.0)
RDW 23.1 H %
(11.5-14.5)
Abs Immat Gran (auto) 6.3 H 10^3/uL
(0-0.05)
Absolute Neuts (auto) 19.7 H 10^3/uL
(1.4-6.5)
Absolute Lymphs (auto) 0.7 L 10^3/uL
(1.2-3.4)
Immature Gran % 23.2 H %
(0-0.5)
Lymphocytes % 2.6 L %
(20.5-51.1)
Monocytes % 0.9 L %
(1.7-9.3)
PT 17.1 H Sec
(11.4-14.6)
Sodium 129 L mmol/L
(135-145)
Chloride 97 L mmol/L
(98-107)
Creatinine 0.5 L mg/dL
(0.7-1.3)
Glucose 101 H mg/dl
(70-99)
Albumin 3.3 L g/dl
(3.5-5.0)
06/17/25 15:58
06/17/25 15:58
Vital Signs
Initial and Last Documented VS:
Initial Vital Signs
Temp Pulse Resp BP Pulse Ox
103.0 F H 130 20 94/64 97
06/17/25 15:27 06/17/25 15:27 06/17/25 15:27 06/17/25 15:27 06/17/25 15:27
Last Documented Vital Signs
Temp Pulse Resp BP Pulse Ox
98.1 F 94 16 131/67 100
06/17/25 23:29 06/17/25 23:29 06/17/25 23:29 06/17/25 23:29 06/17/25 23:29
*Pulse Oximetry
SaO2: 98
Oxygen Mode of Delivery: Room air
Patient hypoxic: no
*Critical Care Note
Total Time (30-74mins, 75-104mins- exclusive of procedures): Not Applicable
ED Attending Note
-
Portions of this chart may have been created with voice recognition software.� Occasional wrong word or��sound alike� substitutions may have occurred due to the inherent limitations of voice recognition software.
Discharge Plan
Departure
Patient Disposition: Admit
Date of Disposition: 06/17/25
Time of Disposition: 19:01
Admit to: Med/Surg
Presentation/result/management discussed w/ accepting MD/DO: Hospitalist
Patient with high blood pressure during this ER visit?: No
Condition: Fair
Discharge Problem:
Fever, Metastasis to liver, Adenocarcinoma of sigmoid colon, Hyponatremia
Interventions
Interventions:
*Risk Screen - Suicide Last Done: 06/17/25 15:27
*General Assessment Last Done: 06/17/25 15:27
*Neglect/Abuse Screening Last Done: 06/17/25 15:27
*ED- Fall Risk Assessment Last Done: 06/17/25 21:09
*ED COVID-19 Vaccine History Last Done: 06/17/25 15:54
*ED Influenza Vaccine History Last Done: 06/17/25 15:54
*Nursing Disposition Last Done: 06/17/25 21:09
ED- Neurological Assessment Last Done: 06/17/25 19:24
ED-Skin Assessment Last Done: 06/17/25 15:54
Discharge Date and Time
Discharge Date/Time: 06/17/25 21:10
[2025-06-17 16:21] LABS: INR 1.37; PT 17.1 Sec (11.4-14.6)
[2025-06-17 16:25] LABS: ALT (SGPT) 37 U/L (0-50); AST (SGOT) 32 U/L (17-59); Albumin 3.3 g/dl (3.5-5.0); Alkaline Phosphatase 122 U/L (38-126); Blood Urea Nitrogen 17 mg/dl (9-20); Calcium 8.4 mg/dl (8.4-10.2); Carbon Dioxide 27 mmol/L (22-30); Chloride 97 mmol/L (98-107); Estimated Creatinine Clearance > 125 ml/min; Glucose 101 mg/dl (70-99); Hematocrit 24.6 % (39.0-52.0); Hemoglobin 8.1 g/dL (13.0-18.0); Mean Corp Hgb Conc. 32.9 g/dL (33.0-37.0); Mean Corpuscular Volume 90.1 fL (80.0-94.0); Platelet Count 284 10^3/uL (130-400); Potassium 3.9 mmol/L (3.5-5.1); Red Cell Dist. Width 23.1 % (11.5-14.5); Sodium 129 mmol/L (135-145); Total Protein 6.5 g/dl (6.3-8.2); eGFR > 60.00
[2025-06-17 16:33] LABS: Nucleated Red Blood Cells % 0 % (-)
[2025-06-17 16:42] LABS: COVID-19 Antigen Negative (Negative)
[2025-06-17 17:29] LABS: Urine Character Clear (Clear)
[2025-06-17] MEDS: MAXIPIME 2000 MG IV (19:15)
--- NOTE | 2025-06-17 19:48 | HPS.HSE ---
Family Physician
-
Family Physician: Daniel Farmer MD
Chief Complaint
-
Fever
History of Present Illness
Patient is a 34y M with PMH significant for colon cancer on chemotherapy who presents to ED complaining of fever. Patient completed his 5th cycle of FOLFIRINOX on Wednesday. He had G-CSF treatment at the end of his course. Patient was monitoring
his temperature at home as per protocol and noted temp to 100.4 today. He presented to the ED where he was noted to have fever to 103. Patient states that his two young children at home (1 and 4) had fever last week.
Patient denies any other focal / specific symptoms including headache, sore throat, cough / SOB, abd pain, N/V/D or urinary symptoms.
Medical History
Past Medical History
Past Medical History: Reports Other
Additional Past Medical History:
Colon Cancer Stage IV
Past Surgical History: Reports Other
Additional Past Surgical History:
Colonoscopy with Sigmoid Polyp Resection and Intraluminal Perforation Repair
Port Placement
Social History
Tobacco: Non-smoker
Alcohol: Occasional
Drug: None
Personal:
Living: With Family
Family History
Family History: Not pertinent
Allergies / Home Medications
Allergies reflects when Allergies were last updated in [employer].
Home Medications with original date entered in [employer]
Allergy/Medication List:
Allergies
Allergy/AdvReac Type Severity Reaction Status Date / Time
No Known Allergies Allergy Verified 06/17/25 15:32
Home Medications
ondansetron HCl 4 mg tablet 4 mg PO Q6HPRN PRN nausea 06/02/25
tramadol 50 mg tablet 50 mg PO Q6HPRN PRN moderate pain 06/02/25
lidocaine HCl 2 % mucosal solution 1 applic mucous membrane QID PRN mouth sores 06/15/25
prochlorperazine maleate 5 mg tablet (Compazine) 5 mg PO BID PRN nausea 06/15/25
Review of Systems
-
History Source: Patient
A 12 point ROS was completed and negative except as noted: Yes
Constitutional: Reports Fever; Denies Fatigue or Chills
EENT: Denies Sore Throat
Respiratory: Denies Cough or Trouble Breathing
Cardiac: Denies Chest Pain or Palpitations
Abdomen/GI: Denies Abdominal Pain, Nausea, Vomiting or Diarrhea
: Denies Dysuria or Frequency
Musculoskeletal: Denies Joint Pain or Edema
Neurological: Denies Dizzy or Headache
Psych: Denies Depression or Anxiety
Physical Exam
Vital Signs
Vital Signs
Temp Pulse Resp BP Pulse Ox
98.8 F 101 25 134/66 97
06/17/25 19:00 06/17/25 19:30 06/17/25 19:30 06/17/25 19:04 06/17/25 19:30
Physical Exam
General: Other (34y M in no acute distress.)
HEENT: Moist mucous membranes and PERRLA
Respiratory: Clear; No Wheezes, Rales or Rhonchi
Cardiac: S1/S2, Regular Rhythm and Murmur (II/ KETURAH)
GI: Soft, Non Tender, Non Distended and Normal Bowel Sounds
Musculoskeletal: No Clubbing, No Cyanosis and No Edema
Neuro: AO x 3
Laboratory Results
-
06/17/25 15:58
06/17/25 15:58
Laboratory Results
PT 17.1 Sec (11.4-14.6) H 06/17/25 15:58
INR 1.37 06/17/25 15:58
Lactic Acid Cancelled 06/17/25 19:45
Total Bilirubin 0.4 mg/dl (0.2-1.3) 06/17/25 15:58
AST 32 U/L (17-59) 06/17/25 15:58
ALT 37 U/L (0-50) 06/17/25 15:58
Alkaline Phosphatase 122 U/L (38-126) 06/17/25 15:58
Impression/Plan
-
A/P: Patient is a 34y M with PMH significant for colon cancer on chemotherapy who presents to ED for evaluation of fever s/p recent chemo cycle.
Fever in Immunocompromised Host without Neutropenia
- Admit for further evaluation and treatment.
- No focal symptoms / complaints. Note that his two young children also had febrile illnesses within the past week.
- Likely viral process.
- Patient is not currently neutropenic. Has leukocytosis (27) likely due to Neulasta administration.
- Empiric abx for now. Follow for any focal symptoms, positive culture data.
- Follow fever curve.
- Symptomatic treatment with IVFs, antipyretics, etc.
- Oncology evaluation.
Stage IV Colon Cancer
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
- s/p cycle # 5 of FOLFIRINOX.
- s/p PRBC transfusion on 06/15. Patient notes that he had some itching following that transfusion.
- Follow cell counts for changes.
- Oncology eval as noted above
Chronic Hyponatremia
- Na levels are fairly c/w recent baselines.
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
- IVFs overnight with fever. Follow-up repeat labs in AM.
Pineal Cyst
- Seen on [employer] imaging during prior admission. Ruchiley benign.
- Follow-up as an outpatient as planned.
DVT Prophylaxis: Lovenox
Code Status: Full
--- NOTE | 2025-06-17 21:02 | PTCARENOTE ---
Pt received from ED to rm [id number]. Pt oriented to room and call augustin.
[2025-06-17] MEDS: VANCOCIN 540 MG IV (21:30)
--- NOTE | 2025-06-17 21:58 | PHA.VAN.IN ---
Assessment
- Assessment
Renal Function: Appears similar to baseline
Maximum Temperature: 103F
Concomitant Antimicrobials: Piperacillin/tazobactam
AUC Dosing Plan
- Dosing Variables
Dosing Weight (kg): 75
Dosing CrCl (ml/min): 125
Vd coefficient (L/kg): 0.7
- Empiric Dosing
Initial / Loading Dose: Vancomycin 2000mg administered 06/17 at 2130
Maintenance Regimen: Vancomycin 1000mg IV Q8 to start 06/18 at 0600
Estimated AUC (mcg*h/mL): 571
Estimated Peak (mcg*h/mL): 32.9
Estimated Trough (mcg/ml): 16.3
Estimated Half Life (H): 6.4
- Monitoring
No levels ordered at this time: Consider levels once pt reaches steady state.
Pharmacokinetics Vancomycin I
- -
Patient Age: 34
Patient Sex: Male
Vancomycin Day #: 1
Indication: Bacteremia
Requesting Provider: Dr. Randolph
Pertinent Antimicrobial Allergies:
NKA
Height / Weight:
Height 6 ft 1 in
Actual Weight 75.387 kg
Pertinent Past Medical History: Stage IV Colon cancer s/p 5th round of chemo 06/15
- Vital Signs / Lab Results
Temp Pulse Resp BP Pulse Ox
98.4 F 104 16 134/79 98
06/17/25 21:19 06/17/25 21:19 06/17/25 21:19 06/17/25 21:19 06/17/25 21:19
Lab Results - Hematology
06/17/25
15:58
WBC 27.0 H
Lab Results - Chemistry
06/17/25
15:58
BUN 17
Creatinine 0.5 L
Estimated Creat Clear > 125
Albumin 3.3 L
06/17/25 06/17/25
15:58 19:45
Lactic Acid 1.4 Cancelled
Lab Results - Urine
06/17/25
17:20
Urine Nitrite (Reflex) Negative
Leukocyte Esterase Rfl Negative
Microbiology Results
06/17/25 15:58 Influenza Types A & B (LENA) - Final
Nasal Swab Negative for Influenza A & B, NAAT
Negative results must be combined with clinical observations
and patient history.
Nucleic Acid Amplification test (NAAT)performed on the
[employer] NOW platform.
[2025-06-18] MEDS: ZOSYN 50 IV ×4 (02:05→19:54)
[2025-06-18] MEDS: TYLENOL 650 MG PO (03:22)
[2025-06-18 03:50] VITALS: BP 140/82
[2025-06-18] MEDS: VANCOCIN 200 IV ×3 (05:45→21:58)
[2025-06-18 07:00] VITALS: BMI 21.9
[2025-06-18 07:50] VITALS: BP 137/81
[2025-06-18] MEDS: NSS 1000 IV ×2 (08:21→17:21)
[2025-06-18] MEDS: FLUSH (NSS) 1 FLUSH IV ×3 (08:21→14:47)
[2025-06-18 08:34] LABS: Hematocrit 26.8 % (39.0-52.0); Hemoglobin 8.2 g/dL (13.0-18.0); Mean Corp Hgb Conc. 30.6 g/dL (33.0-37.0); Mean Corpuscular Volume 94.7 fL (80.0-94.0); Platelet Count 254 10^3/uL (130-400); Red Cell Dist. Width 23.5 % (11.5-14.5)
[2025-06-18 10:04] LABS: Blood Urea Nitrogen 12 mg/dl (9-20); Calcium 7.7 mg/dl (8.4-10.2); Carbon Dioxide 23 mmol/L (22-30); Chloride 100 mmol/L (98-107); Estimated Creatinine Clearance > 125 ml/min; Glucose 117 mg/dl (70-99); Potassium 3.8 mmol/L (3.5-5.1); Sodium 126 mmol/L (135-145); eGFR > 60.00
--- NOTE | 2025-06-18 10:07 | PHA.VAN.FU ---
Vancomycin Assessment / Plan
- Assessment
Renal Function: Stable (Stable at 0.5 per lab, not yet resulted)
WBC's are: Trending Down (14.4 from 27)
In the past 24 hrs, patient has been: Febrile (Tmax 103F)
Concomitant Antimicrobials: Zosyn
- Dosing Plan
Continue: 1000MG Q8H
- Monitoring Plan
Peak Level: 06/19/25 @0100
Trough Level: 06/19/25 @0530
- Follow Up
Pharmacy will continue to follow.
Vancomycin Follow UP
- -
Patient Age: 34
Patient Sex: Male
Vancomycin Day #: 2
Indication: Bacteremia
Requesting Provider: Dr. Randolph
Pertinent Antimicrobial Allergies:
NKA
Height / Weight:
Height 6 ft 1 in
Actual Weight 75.438 kg
Pertinent Past Medical History: Stage IV Colon cancer s/p 5th round of chemo 06/15
- Vital Signs / Lab Results
Temp Pulse Resp BP Pulse Ox
98.6 F 95 16 137/81 100
06/18/25 07:50 06/18/25 07:50 06/18/25 07:50 06/18/25 07:50 06/18/25 09:52
Lab Results - Hematology
06/17/25 06/18/25
15:58 06:30
WBC 27.0 H 14.4 H
Lab Results - Chemistry
06/17/25 06/18/25
15:58 06:30
BUN 17 12
Creatinine 0.5 L 0.5 L
Estimated Creat Clear > 125 > 125
Albumin 3.3 L
06/17/25 06/17/25
15:58 19:45
Lactic Acid 1.4 Cancelled
Lab Results - Urine
06/17/25
17:20
Urine Nitrite (Reflex) Negative
Leukocyte Esterase Rfl Negative
Microbiology Results
06/17/25 15:58 Influenza Types A & B (LENA) - Final
Nasal Swab Negative for Influenza A & B, NAAT
Negative results must be combined with clinical observations
and patient history.
Nucleic Acid Amplification test (NAAT)performed on the
[employer] NOW platform.
--- NOTE | 2025-06-18 10:28 | CM ---
Initial assessment completed. Patient is a 34y M with PMH significant for colon cancer on chemotherapy who presents to ED complaining of fever.
Recent admission (06/02-06/05) for neutrapenic fever
Patient resides w/ spouse and their 2 daughters in a raised rancher style home, no steps. Patient is independent in all areas. No therapy/HC hx. Patient has stage IV colon cancer, receiving chemotherapy at [facility]
Address, point of contact and insurance verified
PCP: Daniel Farmer
Pharmacy: [facility]
Plan: Home, no needs likely
--- NOTE | 2025-06-18 11:58 | W.PN.HOSP.TC ---
Today's Communication/Plan
-
Continue antibiotic.
Assessment / Plan
Assessment / Plan
Impression:
Patient is a 34y M with PMH significant for colon cancer on chemotherapy who presents to ED complaining of fever. Patient completed his 5th cycle of FOLFIRINOX on Wednesday. He had G-CSF treatment at the end of his course. Patient was monitoring
his temperature at home as per protocol and noted temp to 100.4 today. He presented to the ED where he was noted to have fever to 103. Patient states that his two young children at home (1 and 4) had fever last week.
Patient denies any other focal / specific symptoms including headache, sore throat, cough / SOB, abd pain, N/V/D or urinary symptoms.
Assessment/plan:
Fever in Immunocompromised Host without Neutropenia
- Admitted for further evaluation and treatment.
- No focal symptoms / complaints. Note that his two young children also had febrile illnesses within the past week.
- Likely viral process.
- Patient is not currently neutropenic. Has leukocytosis (27) likely due to Neulasta administration.
- Empiric abx for now. Follow for any focal symptoms, positive culture data.
- Follow fever curve.
- Symptomatic treatment with IVFs, antipyretics, etc.
- Oncology consulted.
Stage IV Colon Cancer
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
- s/p cycle # 5 of FOLFIRINOX.
- s/p PRBC transfusion on 06/15. Patient notes that he had some itching following that transfusion.
- Follow cell counts for changes.
- Oncology eval as noted above
Chronic Hyponatremia
- Na levels are fairly c/w recent baselines.
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
- IVFs overnight with fever. Follow-up repeat labs in AM.
Pineal Cyst
- Seen on DRUG ABUSE PROGRAM COORDINATOR imaging during prior admission. Abbie benign.
- Follow-up as an outpatient as planned.
CODE STATUS: Full code
DVT prophylaxis: Lovenox
Diet: Regular diet
Family communication: Discussed with mother at bedside
Disposition: Continue antibiotic.
Total time spent on today's encounter was 55 minutes which included time spent in counseling the patient/family regarding diagnosis and treatment plan as listed above, goals of care, and symptom management. Case was discussed with nursing staff,
specialists, and care coordinators/case management. All labs and imaging personally reviewed by me. Remainder the time spent in detailed review of previous records, lab data, imaging, and other medical provider documentation.
Anticipated Discharge: Within 24 hours
Subjective/Interval History
-
Date of Service: June 18, 2025
Patient seen and examined at bedside, family at bedside, denies any chest pain or shortness of breath, no abdominal pain, no nausea, no vomiting, no diarrhea or constipation.
Objective Data
-
Labs:
Laboratory Results
06/18/25
06:30
WBC 14.4 H
Hgb 8.2 L
Hct 26.8 L
Plt Count 254
Sodium 126 L
Potassium 3.8
Chloride 100
Carbon Dioxide 23
BUN 12
Creatinine 0.5 L
Glucose 117 H
Calcium 7.7 L
Vital Signs:
Vital Signs
Temp Pulse Resp BP Pulse Ox
98.6 F 95 16 137/81 100
06/18/25 07:50 06/18/25 07:50 06/18/25 07:50 06/18/25 07:50 06/18/25 09:52
I&O
06/17/25 06/18/25 06/19/25
06:59 06:59 06:59
Intake Total 1969 / 1969
Output Total 1150 / 1150
Balance 820 / 820
Physical Exam
-
General: Well Developed
HEENT: Normocephalic, No Ptosis, PERRLA and Nose Appears Normal
Respiratory: Clear to Auscultation and Accessory Resp Muscle Use
Cardiac: Regular Rhythm and S1/S2
Breast: Deferred by me
GI: Soft, Nontender, Nondistended and Normal Bowel Sounds
Genito-urinary: No Costovertebral Tender
Musculoskeletal: No Clubbing, No Cyanosis and No Edema
Skin: Warm
Neuro: Awake, Alert, Oriented and AO x 3
Psych: Calm
Data Reviewed
-
Diagnostic Radiology: Image personally visualized and interpreted and Report Reviewed by me
CT Scan: Image personally visualized and interpreted and Report Reviewed by me
Ultrasound: Image personally visualized and interpreted and Report Reviewed by me
MRI: Image personally visualized and interpreted and Report Reviewed by me
Medical Tests (Nuc Med, Echo etc): Image personally visualized and interpreted and Report Reviewed by me
Labs: Labs Reviewed by me
Old Records: Reviewed
[2025-06-18 12:46] VITALS: BP 120/69
[2025-06-18 15:38] LABS: Absolute Neutrophils -Man Diff 13.6 10^3/uL (1.4-6.5)
[2025-06-18 15:39] LABS: Anisocytosis 2+; Hypochromasia 1+; Normal RBC Morphology No; Ovalocytes Slight; Platelets Checked Yes; Tear Drop Red Blood Cells Slight; Total Cells Counted 100
[2025-06-18 15:51] VITALS: BP 135/68
--- NOTE | 2025-06-18 16:16 | PTCARENOTE ---
Pt AAO x3, very forgetful; uncoordinated at times; knocking items off of bedside table. JACKSON well, denies weakness/dizziness, OOB to BR with assist x1; sl unsteady w/OOB activity. VSS. Telemetry:NSR/ST to 100's. On room air- pulse ox 100%, no SOB
noted. Abd soft, rounded, thai PO. Voids in BR; occ incont large amts urine- pt does not realize that he has been incont. Afebrile; pale , warm and dry. IVF's NSS @ 125 ml/hr infusing via Rt forearm site without sx of infiltration. Resting in
bed at present. Family at bedside. Will continue to monitor.
[2025-06-18] MEDS: LOVENOX 40 MG SC (17:21)
[2025-06-18 19:00] VITALS: BP 119/65
--- NOTE | 2025-06-18 20:05 | CON.ONC ---
Consultation
-
Date Consultation Requested: 06/17/25
Date Consultation Performed: 06/18/25
Requesting Provider: Morris Randolph MD
Performing Provider: Carlene Joe MD
Reason for Consultation: Metastatic colon cancer on chemotherapy, fever, mental status change
Impression
Impression
Metastatic colon cancer
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
Chemo-related anemia
Plan
Plan
No neutropenic but still with low-grade fever.
Case d/w Dr. Ramos, avastin and oxaliplatin will be held with future treatment cycles as both can cause and RPLS-like picture.
Continue supportive care.
Thank you for consult, will follow along with you.
Patient History
History of Present Illness
34 yo man with met colon cancer s/p cycle 5 FOLFIRINOX/Avastin on 06/13 and Neulasta 06/15. He had pneumonia 2-3 weeks ago, but had recovered. He has young children who were recently sick. He had fever to 100.4 at home, increased to 103 in ED.
No localizing infectious symptoms. WBC adequate at 14.4. Apparently he was getting platelets late last week and had an infusion reaction, unable to to get full transfusion. But platelet count is normal currently. Pt has been confused, dizzy,
forgetful, and very much not himself since starting chemo. 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
gland cyst but no metastatic disease or stroke. Head CT this admission showed same. CXR NAD.
Past-Medical/Surgical History
Past Medical History:
Colon Cancer Stage IV
Past Surgical History:
Colonoscopy with Sigmoid Polyp Resection and Intraluminal Perforation Repair
Port Placement
Social History
Tobacco: Non-smoker
Alcohol: Occasional
Drug: None
Personal:
Living: With Family
Family History
Family History: Not pertinent
Patient Medication
�Medication �Instructions �Recorded �Confirmed �Last Taken �Type
ondansetron HCl 4 mg tablet 4 mg PO Q6HPRN PRN nausea 06/02/25 06/17/25 Unknown History
tramadol 50 mg tablet 50 mg PO Q6HPRN PRN moderate pain 06/02/25 06/17/25 06/15/25 History
lidocaine HCl 2 % mucosal solution 1 applic mucous membrane QID PRN 06/15/25 06/17/25 Unknown History
mouth sores
prochlorperazine maleate 5 mg 5 mg PO BID PRN nausea 06/15/25 06/17/25 06/16/25 History
tablet (Compazine)
Active Medications
Generic Name Dose Route Start Last Admin
Trade Name Freq PRN Reason Stop Dose Admin
Acetaminophen 650 mg 06/17/25 21:03 06/18/25 03:22
Acetaminophen 325 Mg Tablet PO 07/15/25 21:02 650 mg
Q4HPRN PRN Administration
Mild Pain / Temp > 101
Enoxaparin Sodium 40 mg 06/18/25 18:00 06/18/25 17:21
Enoxaparin Sodium 40 Mg/0.4 Ml Syringe SC 07/16/25 17:59 40 mg
QPM ASTRID Administration
Sodium Chloride 1,000 mls @ 125 mls/hr 06/17/25 21:03 06/18/25 17:21
Nss IV 1,000 mls
.Q8H ASTRID Administration
Piperacillin Sod/Tazobactam Sod 3.375 gram in 50 mls @ 100 mls/hr 06/18/25 02:00 06/18/25 19:54
Zosyn IV 50 mls
Q6H ASTRID Administration
Vancomycin HCl 1 gram in 200 mls @ 200 mls/hr 06/18/25 06:00 06/18/25 13:35
Vancocin IV 200 mls
Q8H ASTRID Administration
Protocol
Multi-Ingredient Mouthwash/Gargle 10 ml 06/18/25 08:33
Magic (Miracle) Mouthwash 90 Ml Bottle PO
Q4HPRN PRN
mouth sore
Ondansetron HCl 4 mg 06/17/25 21:03
Ondansetron 4 Mg/2 Ml Vial IV 07/15/25 21:02
Q6HPRN PRN
nausea and vomiting
Sodium Chloride 0 flush 06/17/25 22:00 06/18/25 14:47
Sodium Chloride 0.9% (Flush) Syringe IV 07/15/25 21:59 1 flush
PER PROTOCOL ASTRID Administration
Tramadol HCl 50 mg 06/17/25 21:03
Tramadol Hcl 50 Mg Tablet PO 07/15/25 21:02
Q6HPRN PRN
moderate pain
Physical Exam
-
General: Well Developed and Well Nourished
HEENT: Moist Mucous Membranes; Negative Jaundice
Cardiology: Normal Sinus Rhythm, S1 and S2
Pulmonary: Clear; Negative Wheezes
GI: Soft and Normal Bowel Sounds
Musculoskeletal: No Clubbing, No Cyanosis and No Edema
Extremities: Negative Phlebitic Signs or Edema
Neurology: Other (Confused)
Skin: Warm and Dry
Hematologic / Lymphatic: No Lymphadenopathy
Psych: Confused; Negative Intact Judgement/Insight
Labs
Lab Results
WBC 14.4 10^3/uL (4.8-10.8) H 06/18/25 06:30
RBC 2.83 10^6/uL (4.70-6.10) L 06/18/25 06:30
Hgb 8.2 g/dL (13.0-18.0) L 06/18/25 06:30
Hct 26.8 % (39.0-52.0) L 06/18/25 06:30
MCV 94.7 fL (80.0-94.0) H 06/18/25 06:30
MCH 29.0 pg (27.0-31.0) 06/18/25 06:30
MCHC 30.6 g/dL (33.0-37.0) L 06/18/25 06:30
RDW 23.5 % (11.5-14.5) H 06/18/25 06:30
Plt Count 254 10^3/uL (130-400) 06/18/25 06:30
MPV 9.0 fL (7.4-10.4) 06/18/25 06:30
Abs Immat Gran (auto) 6.3 10^3/uL (0-0.05) H 06/17/25 15:58
Absolute Neuts (auto) 19.7 10^3/uL (1.4-6.5) H 06/17/25 15:58
Absolute Lymphs (auto) 0.7 10^3/uL (1.2-3.4) L 06/17/25 15:58
Absolute Monos (auto) 0.2 10^3/uL (0.1-0.6) 06/17/25 15:58
Absolute Eos (auto) 0.0 10^3/uL (0-0.7) 06/17/25 15:58
Absolute Basos (auto) 0.1 10^3/uL (0-0.2) 06/17/25 15:58
Immature Gran % 23.2 % (0-0.5) H 06/17/25 15:58
Neutrophils % 72.9 % (42.2-75.2) 06/17/25 15:58
Lymphocytes % 2.6 % (20.5-51.1) L 06/17/25 15:58
Monocytes % 0.9 % (1.7-9.3) L 06/17/25 15:58
Eosinophils % 0.0 % (0-6) 06/17/25 15:58
Basophils % 0.4 % (0-2) 06/17/25 15:58
Creatinine 0.5 mg/dL (0.7-1.3) L 06/18/25 06:30
Vital Signs
Vital Signs
Temp Pulse Resp BP Pulse Ox
99.5 F 101 18 119/65 98
06/18/25 19:00 06/18/25 19:00 06/18/25 19:00 06/18/25 19:00 06/18/25 19:00
[2025-06-18] MEDS: MAGIC OR MIRACLE MOUTHWASH 10 ML PO (22:09)
[2025-06-18 23:00] VITALS: BP 138/81
[2025-06-19] MEDS: NSS 1000 IV ×2 (01:15→11:13)
[2025-06-19] MEDS: ZOSYN 50 IV ×2 (01:16→07:47)
[2025-06-19] MEDS: MAGIC OR MIRACLE MOUTHWASH 10 ML PO ×2 (02:13→07:50)
[2025-06-19 03:00] VITALS: BP 130/81
[2025-06-19] MEDS: VANCOCIN 200 IV (05:34)
[2025-06-19 05:43] LABS: Hematocrit 26.4 % (39.0-52.0); Hemoglobin 8.1 g/dL (13.0-18.0); Mean Corp Hgb Conc. 30.7 g/dL (33.0-37.0); Mean Corpuscular Volume 94.6 fL (80.0-94.0); Platelet Count 196 10^3/uL (130-400); Red Cell Dist. Width 23.1 % (11.5-14.5)
[2025-06-19 06:00] VITALS: BMI 21.4
[2025-06-19 06:00] LABS: Blood Urea Nitrogen 13 mg/dl (9-20); Calcium 7.6 mg/dl (8.4-10.2); Carbon Dioxide 24 mmol/L (22-30); Chloride 103 mmol/L (98-107); Estimated Creatinine Clearance > 125 ml/min; Glucose 109 mg/dl (70-99); Potassium 3.8 mmol/L (3.5-5.1); Sodium 130 mmol/L (135-145); eGFR > 60.00
[2025-06-19 07:00] VITALS: BP 126/86
--- NOTE | 2025-06-19 08:57 | PHA.VAN.FU ---
Vancomycin Assessment / Plan
- Assessment
Renal Function: Stable
WBC's are: WNL
In the past 24 hrs, patient has been: Afebrile
Concomitant Antimicrobials: piperacillin/tazobactam
- Assessment - Therapeutic Drug Monitoring
Extrapolated Cmax (mcg/mL): 17.8
Peak level was drawn: Appropriately (drawn ~1.9H after end of previous infusion)
Extrapolated Cmin (mcg/mL): 5.8
Trough Drawn: Appropriately
Levels were drawn: At steady state (levels drawn after 3rd maintenance dose; patient may not fully be at steady state as has been on maintenance regimen < 24H at time of levels)
Calculated AUC (mcg*h/mL): 261
Calculated ke: 0.1598
Calculated half life (H): 4.3
Calculated Vd (L): 72 (~1 L/kg)
Calculated Vanc CL (ml/min): 191
- Dosing Plan
Adjust Regimen to: Vanc 1250mg Q8H starting at 2200 - give 1750mg x1 at noon to booster levels
Dosing Comments: patient likely to still have additional accumulation
- Monitoring Plan
No level(s) ordered at this time: consider levels in next few days
- Follow Up
Pharmacy will continue to follow.
Vancomycin Follow UP
- -
Patient Age: 34
Patient Sex: Male
Vancomycin Day #: 3
Indication: Bacteremia
Requesting Provider: Dr. Randolph
Pertinent Antimicrobial Allergies:
NKDA
Height / Weight:
Height 6 ft 1 in
Actual Weight 73.51 kg
Pertinent Past Medical History: Stage IV Colon cancer s/p 5th round of chemo 06/15
- Vital Signs / Lab Results
Temp Pulse Resp BP Pulse Ox
98.4 F 97 18 126/86 98
06/19/25 07:00 06/19/25 07:00 06/19/25 07:00 06/19/25 07:00 06/19/25 07:00
Lab Results - Hematology
06/17/25 06/18/25 06/19/25
15:58 06:30 05:23
WBC 27.0 H 14.4 H 4.9
Band Neutrophils 3
Lab Results - Chemistry
06/17/25 06/18/25 06/19/25
15:58 06:30 05:23
BUN 17 12 13
Creatinine 0.5 L 0.5 L 0.5 L
Estimated Creat Clear > 125 > 125 > 125
Albumin 3.3 L
06/17/25 06/17/25
15:58 19:45
Lactic Acid 1.4 Cancelled
Microbiology Results
06/17/25 15:59 Blood Culture - Preliminary
Blood/Venous No Growth in 24 hours- Final report to follow
06/17/25 15:58 Blood Culture - Preliminary
Blood/Venous No Growth in 24 hours- Final report to follow
06/17/25 15:58 Influenza Types A & B (LENA) - Final
Nasal Swab Negative for Influenza A & B, NAAT
Negative results must be combined with clinical observations
and patient history.
Nucleic Acid Amplification test (NAAT)performed on the
[employer] platform.
Therapeutic Drug Monitoring
Vancomycin Peak 13.1 ug/ml (18-26) L 06/19/25 00:54
Vancomycin Trough 6.4 ug/ml (5-20) 06/19/25 05:23
[2025-06-19 10:49] VITALS: BP 107/62
--- NOTE | 2025-06-19 10:51 | W.PN.ONC ---
Today's Communication / Plan
-
Afebrile since early yesterday am, no obvious infection. Likely viral with young kids at home that were recently sick
Mental status improved greatly, clinical picture c/f PRES from treatment -- avastin and oxaliplatin to be held moving forward
Family is requesting EEG and neuro input - maybe can be done as outpatient
Okay for d/c from a heme/onc standpoint
He has f/u with Dr Ramos on 06/22
Impression
Impression
Metastatic colon cancer
Mental status changes - suspect PRES-like syndrome
Chemo-related anemia
Plan
Plan
Afebrile since early yesterday am, no obvious infection. Likely viral with young kids at home that were recently sick
Mental status improved greatly, clinical picture c/f PRES from treatment -- avastin and oxaliplatin to be held moving forward
Family is requesting EEG and neuro input - maybe can be done as outpatient
Okay for d/c from a heme/onc standpoint
He has f/u with Dr Ramos on 06/22
Subjective/Objective
Subjective/Objective
Vital Signs:
Vital Signs
Temp Pulse Resp BP Pulse Ox
97.6 F 82 16 107/62 98
06/19/25 10:49 06/19/25 10:49 06/19/25 10:49 06/19/25 10:49 06/19/25 10:49
Lab Results:
Laboratory Data
WBC 4.9 10^3/uL (4.8-10.8) 06/19/25 05:23
Hgb 8.1 g/dL (13.0-18.0) L 06/19/25 05:23
Plt Count 196 10^3/uL (130-400) D 06/19/25 05:23
PT 17.1 Sec (11.4-14.6) H 06/17/25 15:58
INR 1.37 06/17/25 15:58
eGFR > 60.00 06/19/25 05:23
[2025-06-19] MEDS: VANCOCIN 535 MG IV (11:12)
--- NOTE | 2025-06-19 11:24 | PN.CDI ---
CDI
- -
CDI:
Physician Documentation Request
Admit Date: 06/17/25 20:00
Dear Doctor,
Patient admitted for fever.
06/18 Hospitalist PN: 'Fever in Immunocompromised Host without Neutropenia...Likely viral process.'
Laboratory Tests
06/17/25 06/18/25
15:58 06:30
WBC 27.0 H 14.4 H
06/17/25
15:27 06/17/25
16:03
Temp 103.0 F H 102.8 F H
06/17/25
15:27 06/17/25
15:45 06/17/25
17:00
Pulse 130 115 107
06/17/25
15:42 06/17/25
16:15 06/17/25
17:00
Resp Rate 23 26 28
Please clarify which most accurately describes the patient:
SIRS due to a non-infectious source
Fever > 100.4 degrees F or hypothermia < 96.8 degrees F
Leukocytosis - WBC > 12,000 or leukopenia, WBC < 4,000 or > 10% bands
Tachycardia - > 90 beats per minute
Tachypnea - RR > 20 breaths per minute or PaCO2 < 32 mmHg
Source: Merck Manual 2013
Indicate the known or suspected etiology
Indicate if there is associated organ dysfunction, such as renal or respiratory failure
No systemic reaction
Other
Use of terms such as suspected, likely, concern for, or probable (associated with a specific diagnosis that is being evaluated, monitored, or treated as if it exists) are acceptable and can be coded in the inpatient setting, when documented at the
time of discharge.
Thank you,
Hetal Mcpherson RN, BSN
CDI Specialist
Available via [place] text
Please use your independent medical judgment in providing your response.
--- NOTE | 2025-06-19 13:48 | W.PN.HOSP.TC ---
Today's Communication/Plan
-
Discharge home today.
Assessment / Plan
Assessment / Plan
Impression:
Patient is a 34y M with PMH significant for colon cancer on chemotherapy who presents to ED complaining of fever. Patient completed his 5th cycle of FOLFIRINOX on Wednesday. He had G-CSF treatment at the end of his course. Patient was monitoring
his temperature at home as per protocol and noted temp to 100.4 today. He presented to the ED where he was noted to have fever to 103. Patient states that his two young children at home (1 and 4) had fever last week.
Patient denies any other focal / specific symptoms including headache, sore throat, cough / SOB, abd pain, N/V/D or urinary symptoms.
Leukocytosis improved.
Negative cultures.
Will be discharged on 5 days of Levaquin
Assessment/plan:
Fever in Immunocompromised Host without Neutropenia
- Admitted for further evaluation and treatment.
- No focal symptoms / complaints. Note that his two young children also had febrile illnesses within the past week.
- Likely viral process.
- Patient is not currently neutropenic. Has leukocytosis (27) likely due to Neulasta administration.
- Empiric abx for now. Follow for any focal symptoms, positive culture data.
- Follow fever curve.
- Symptomatic treatment with IVFs, antipyretics, etc.
- Oncology consulted.
06/19
Leukocytosis improved.
Negative cultures.
Will be discharged on 5 days of Levaquin
Stage IV Colon Cancer
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
- s/p cycle # 5 of FOLFIRINOX.
- s/p PRBC transfusion on 06/15. Patient notes that he had some itching following that transfusion.
- Follow cell counts for changes.
- Oncology eval as noted above
Chronic Hyponatremia
- Na levels are fairly c/w recent baselines.
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
- IVFs overnight with fever. Follow-up repeat labs in AM.
Pineal Cyst
- Seen on CONTRACT PROGRAMMER imaging during prior admission. Likley benign.
- Follow-up as an outpatient as planned.
CODE STATUS: Full code
DVT prophylaxis: Lovenox
Diet: Regular diet
Family communication: Discussed with mother at bedside
Disposition: Discharge home today.
Total time spent on today's encounter was 55 minutes which included time spent in counseling the patient/family regarding diagnosis and treatment plan as listed above, goals of care, and symptom management. Case was discussed with nursing staff,
specialists, and care coordinators/case management. All labs and imaging personally reviewed by me. Remainder the time spent in detailed review of previous records, lab data, imaging, and other medical provider documentation.
Anticipated Discharge: Today
Subjective/Interval History
-
Date of Service: June 19, 2025
Patient seen and examined at bedside, mother at bedside, denies any chest pain or shortness of breath, no abdominal pain, no nausea, no vomiting, no diarrhea or constipation.
Objective Data
-
Labs:
Laboratory Results
06/19/25
05:23
WBC 4.9
Hgb 8.1 L
Hct 26.4 L
Plt Count 196 D
Sodium 130 L
Potassium 3.8
Chloride 103
Carbon Dioxide 24
BUN 13
Creatinine 0.5 L
Glucose 109 H
Calcium 7.6 L
Vital Signs:
Vital Signs
Temp Pulse Resp BP Pulse Ox
97.6 F 82 16 107/62 98
06/19/25 10:49 06/19/25 10:49 06/19/25 10:49 06/19/25 10:49 06/19/25 10:49
I&O
06/18/25 06/19/25 06/20/25
06:59 06:59 06:59
Intake Total 1969 5300 / 5300 1520 / 1520
Output Total 1150 / 1150 3725 / 3725
Balance 820 / 820 1575 / 1575 1520 / 1520
Physical Exam
-
General: Well Developed
HEENT: Normocephalic, No Ptosis, PERRLA and Nose Appears Normal
Respiratory: Clear to Auscultation and Accessory Resp Muscle Use
Cardiac: Regular Rhythm and S1/S2
Breast: Deferred by me
GI: Soft, Nontender, Nondistended and Normal Bowel Sounds
Genito-urinary: No Costovertebral Tender
Musculoskeletal: No Clubbing, No Cyanosis and No Edema
Skin: Warm and Rash (Improved back rash)
Neuro: Awake, Alert, Oriented and AO x 3
Psych: Calm
--- NOTE | 2025-06-19 14:02 | W.DCSUMMARY ---
Addendum entered and electronically signed by Brianna Lucio MD 06/19/25 14:37:
Patient meets sepsis with acute organ dysfunction in form of acute metabolic encephalopathy
Source of infection viral illness but will be discharged on oral Levaquin.
Original Note:
Discharge Summary
Discharge Data
Date of Admission: 06/17/25
Date of Discharge: 06/19/25
Total time spent discharging patient (in min): 40
-
Pending Results: No
Hospital Course
Hospital course
Patient is a 34y M with PMH significant for colon cancer on chemotherapy who presents to ED complaining of fever. Patient completed his 5th cycle of FOLFIRINOX on Wednesday. He had G-CSF treatment at the end of his course. Patient was monitoring
his temperature at home as per protocol and noted temp to 100.4 today. He presented to the ED where he was noted to have fever to 103. Patient states that his two young children at home (1 and 4) had fever last week.
Patient denies any other focal / specific symptoms including headache, sore throat, cough / SOB, abd pain, N/V/D or urinary symptoms.
Leukocytosis improved.
Negative cultures.
Will be discharged on 5 days of Levaquin
During hospitalization patient was treated from the following
Fever in Immunocompromised Host without Neutropenia
- Admitted for further evaluation and treatment.
- No focal symptoms / complaints. Note that his two young children also had febrile illnesses within the past week.
- Likely viral process.
- Patient is not currently neutropenic. Has leukocytosis (27) likely due to Neulasta administration.
- Empiric abx for now. Follow for any focal symptoms, positive culture data.
- Follow fever curve.
- Symptomatic treatment with IVFs, antipyretics, etc.
- Oncology consulted.
06/19
Leukocytosis improved.
Negative cultures.
Will be discharged on 5 days of Levaquin
Stage IV Colon Cancer
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
- s/p cycle # 5 of FOLFIRINOX.
- s/p PRBC transfusion on 06/15. Patient notes that he had some itching following that transfusion.
- Follow cell counts for changes.
- Oncology eval as noted above
Chronic Hyponatremia
- Na levels are fairly c/w recent baselines.
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
- IVFs overnight with fever. Follow-up repeat labs in AM.
Pineal Cyst
- Seen on HEAD OF IT imaging during prior admission. Likley benign.
- Follow-up as an outpatient as planned.
CODE STATUS: Full code
DVT prophylaxis: Lovenox
Diet: Regular diet
Family communication: Discussed with mother at bedside
Disposition: Discharge home today.
Total time spent on today's encounter was 40 minutes which included time spent in counseling the patient/family regarding diagnosis and treatment plan as listed above, goals of care, and symptom management. Case was discussed with nursing staff,
specialists, and care coordinators/case management. All labs and imaging personally reviewed by me. Remainder the time spent in detailed review of previous records, lab data, imaging, and other medical provider documentation.
Anticipated Discharge: Today
Discharge Plan
-
Patient Disposition: Home (Routine Discharge)
Discharge Diagnosis/Procedures: Fever in Immunocompromised Host without Neutropenia.
Stage IV Colon Cancer
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
Diet: Regular
Activity: As tolerated
Referrals:
Daniel Farmer MD [Family Provider, Internal Medicine]
Loki Ramos DO [Active, Hematology / Oncology] - in less than 1 week
Prescriptions:
New
(DME) walker Misc
See Rx Instructions .Route Qty: 1 0RF
Rx Instructions:
As directed
(DME) EEG
See Rx Instructions .Route .MEDSUPPLY Qty: 1 0RF
Rx Instructions:
Electroencephalogram
Diagnosis:
Change in mental status
lidocaine HCl [Lidocaine Viscous] 2 % Solution
10 ml PO Q4HPRN PRN (Reason: mouth sore) Qty: 100 0RF
levofloxacin 500 mg tablet
500 mg PO DAILY Qty: 5 0RF
Continued
ondansetron HCl 4 mg tablet
4 mg PO Q6HPRN PRN (Reason: nausea)
tramadol 50 mg tablet
50 mg PO Q6HPRN PRN (Reason: moderate pain)
prochlorperazine maleate [Compazine] 5 mg Tablet
5 mg PO BID PRN (Reason: nausea)
lidocaine HCl 2 % Solution
1 applic MUCOUS MEMBRANE QID PRN (Reason: mouth sores)
Discharge Orders:
Discharge Patient (As Directed); Ordered 06/19/25
Ordered By: Brianna Lucio
Discharge Date and Time
Print Language: WELSH
--- NOTE | 2025-06-19 14:06 | CM ---
Patient will d/c home today
No CM needs at this time
Plan: Home, no needs
== END 2025-06-19 14:47 | disposition home or self-care (01) | DRG 871 ==
LOC: 4 WEST ACU 20:00
PROVIDERS: ADMITTING PHYSICIAN Hospitalist; ATTENDING PHYSICIAN General Practice; EMERGENCY PHYSICIAN Emergency Medicine; FAMILY PHYSICIAN Internal Medicine; OTHER PHYSICIAN Internal Medicine Hematology & Oncology
DX: A41.9 Sepsis, unspecified organism (principal); G93.41 Metabolic encephalopathy; C18.7 Malignant neoplasm of sigmoid colon; C78.7 Secondary malignant neoplasm of liver and intrahepatic bile duct; E22.2 Syndrome of inappropriate secretion of antidiuretic hormone; D84.9 Immunodeficiency, unspecified; D63.0 Anemia in neoplastic disease; B34.9 Viral infection, unspecified; R65.20 Severe sepsis without septic shock; T45.8X5A Adverse effect of other primarily systemic and hematological agents, initial encounter; T45.1X5A Adverse effect of antineoplastic and immunosuppressive drugs, initial encounter; Z11.52 Encounter for screening for COVID-19; Z79.899 Other long term (current) drug therapy
CPT/HCPCS: 70450; 71046; 80048; 80053; 80202; 81003; 83605; 85025; 85027; 85610; 87040; 87502; 87811; 93005; 96361; 96374; 99285